=== PATIENT | male | born 1970 | race Caucasian/White ===

== ENCOUNTER 2018-10-16 16:14 | Inpatient (IN) | payer SELFPAY ==
[~2018-10-16] VITALS: Ht 172.7 cm; Wt 88.7 kg
[2018-10-16] MEDS ORDERED: ACETAMINOPHEN 160 MG/5 ML SUSPENSION UDCUP PO ONE (17:45)
[2018-10-16] MEDS ORDERED: SODIUM CHLORIDE 0.9% 1,000 ML IV ONE ×3 (17:45→19:45)
[2018-10-16 18:09] LABS: HEMATOCRIT 44.1 % (41-53); HEMOGLOBIN 14.8 g/dL (13.5-17.5); MEAN CORPUSCULAR HGB CONC 33.5 G/dL (31.0-37.0); MEAN CORPUSCULAR VOLUME 90 fL (80-100); PLATELET COUNT (AUTO) 183 K/uL (150-450); RED BLOOD CELL COUNT(AUTO) 4.92 MIL/uL (4.50-5.90); RED CELL DISTRIBUTION WIDTH 14.5 % (11.5-14.5)
[2018-10-16 18:18] LABS: CALCIUM, TOTAL 8.9 mg/dL (8.8-10.5); CREATININE 1.75 mg/dL (0.60-1.30); POTASSIUM 3.6 mmol/L (3.5-5.1)
[2018-10-16 18:25] LABS: LACTIC ACID 1.4 mmol/L (0.4-2.0)
[2018-10-16] MEDS ORDERED: ACETAMINOPHEN 500 MG TABLET PO ONE (18:30)
[2018-10-16 18:32] LABS: ALBUMIN 2.8 g/dL (3.4-5.0); BILIRUBIN,TOTAL 1.6 mg/dL (0.1-1.0); TOTAL PROTEIN, SERUM 7.3 g/dL (6.4-8.2)
[2018-10-16 19:17] LABS: BAND NEUTROPHILS % (MANUAL) 25 % (0-5); LYMPHOCYTES % (MANUAL) 4 % (22-44); MONOCYTES % (MANUAL) 8 % (2-9); SEGMENTED NEUTROPHILS % 63 % (40-70)
[2018-10-16 20:19] LABS: APPEARANCE,URINE CLOUDY (CLEAR); BILIRUBIN,URINE NEGATIVE (NEGATIVE); GLUCOSE, URINE (UA) NEGATIVE (NEGATIVE); KETONES,URINE NEGATIVE (NEGATIVE); LEUKOCYTE ESTERASE ,URINE MODERATE (NEGATIVE); NITRATE,URINE POSITIVE (NEGATIVE); OCCULT BLOOD,URINE LARGE (NEGATIVE); PH,URINE 5.5 (5.0-8.0); PROTEIN,URINE SEE CONFIRM (NEGATIVE)
[2018-10-16 20:32] LABS: SULFOSALICYLIC ACID,URINE 3+ (Negative)
[2018-10-16 20:33] LABS: BACTERIA,URINE Moderate /HPF (None Seen); WBC,URINE >100 /HPF (0-5)
[2018-10-16 20:34] LABS: SQUAMOUS EPITHELIAL CELL,UR Few /LPF (None Seen)
[2018-10-16 20:35] LABS: COARSE GRANULAR CASTS,URINE 0-2 /LPF (None Seen)
[2018-10-16] MEDS ORDERED: CefTRIAXone 1 GM/DEXTROSE 50 ML IV SCH (21:00)
[2018-10-16] MEDS: DOCUSATE SODIUM 100 MG CAPSULE PO SCH (21:00)
[2018-10-16] MEDS: OSELTAMIVIR PHOSPHATE 75 MG CAPSULE PO SCH (21:40)
[2018-10-16] MEDS: SODIUM CHLORIDE 0.9% 1,000 ML IV SCH (21:41)
[2018-10-16 21:42] VITALS: BP 121/74
[2018-10-17] MEDS: ACETAMINOPHEN 325 MG TABLET PO PRN ×3 (00:17→16:29)
[2018-10-17 00:25] VITALS: BP 139/66
[2018-10-17 05:36] VITALS: BP 102/70
[2018-10-17 05:54] LABS: BASOPHILS % (AUTO) 0.2 % (0.0-2.0); EOSINOPHILS % (AUTO) 0 % (1.0-6.0); HEMATOCRIT 40.3 % (41-53); HEMOGLOBIN 13.4 g/dL (13.5-17.5); LYMPHOCYTES # (AUTO) 0.4 K/uL (1.0-4.8); LYMPHOCYTES % (AUTO) 1.9 % (22.0-44.0); MEAN CORPUSCULAR HEMOGLOBIN 30.3 pg (26.0-34.0); MEAN CORPUSCULAR HGB CONC 33.2 G/dL (31.0-37.0); MEAN CORPUSCULAR VOLUME 91 fL (80-100); MONOCYTES # (AUTO) 1.5 K/uL (0.1-1.0); MONOCYTES % (AUTO) 7.8 % (2.0-9.0); NEUTROPHILS # (AUTO) 17.7 K/uL (1.8-7.7); PLATELET COUNT (AUTO) 159 K/uL (150-450); RED BLOOD CELL COUNT(AUTO) 4.42 MIL/uL (4.50-5.90); RED CELL DISTRIBUTION WIDTH 14.7 % (11.5-14.5)
[2018-10-17 06:07] LABS: NEUTROPHILS % (AUTO) 90.1 % (40.0-70.0)
[2018-10-17 06:13] LABS: CALCIUM, TOTAL 8.3 mg/dL (8.8-10.5); CREATININE 1.48 mg/dL (0.60-1.30); POTASSIUM 3.5 mmol/L (3.5-5.1)
[2018-10-17] MEDS: DOCUSATE SODIUM 100 MG CAPSULE PO SCH ×2 (08:04→21:51)
[2018-10-17 08:14] VITALS: BP 121/75
[2018-10-17] MEDS: OSELTAMIVIR PHOSPHATE 75 MG CAPSULE PO SCH ×2 (09:37→21:51)
[2018-10-17] MEDS: SODIUM CHLORIDE 0.9% 1,000 ML IV SCH ×2 (09:40→21:58)
[2018-10-17 11:12] VITALS: BP 114/75
[2018-10-17] MEDS ORDERED: AZITHROMYCIN 500 MG/NS 250 ML IV SCH (15:00)
[2018-10-17] MEDS ORDERED: CefTRIAXone SODIUM 2 GM in DEXTROSE 5%-WATER 50 ML IV SCH (16:00)
[2018-10-17 16:01] VITALS: BP 137/91
[2018-10-17 20:32] VITALS: BP 134/76
[2018-10-18 00:48] VITALS: BP 145/91
[2018-10-18 04:43] VITALS: BP 152/92
[2018-10-18 06:19] LABS: BASOPHILS % (AUTO) 0.3 % (0.0-2.0); EOSINOPHILS % (AUTO) 0.5 % (1.0-6.0); HEMATOCRIT 36.5 % (41-53); HEMOGLOBIN 12.5 g/dL (13.5-17.5); LYMPHOCYTES # (AUTO) 0.5 K/uL (1.0-4.8); LYMPHOCYTES % (AUTO) 3.2 % (22.0-44.0); MEAN CORPUSCULAR HEMOGLOBIN 30.2 pg (26.0-34.0); MEAN CORPUSCULAR HGB CONC 34.1 G/dL (31.0-37.0); MEAN CORPUSCULAR VOLUME 89 fL (80-100); MONOCYTES # (AUTO) 1.1 K/uL (0.1-1.0); MONOCYTES % (AUTO) 7.7 % (2.0-9.0); NEUTROPHILS # (AUTO) 12.8 K/uL (1.8-7.7); PLATELET COUNT (AUTO) 161 K/uL (150-450); RED BLOOD CELL COUNT(AUTO) 4.12 MIL/uL (4.50-5.90); RED CELL DISTRIBUTION WIDTH 14.9 % (11.5-14.5)
[2018-10-18 06:28] LABS: ANION GAP 7 mmol/L (8-16); CALCIUM, TOTAL 8.2 mg/dL (8.8-10.5); CARBON DIOXIDE 27 mmol/L (22-29); CHLORIDE 101 mmol/L (98-107); CREATININE 1.02 mg/dL (0.60-1.30); GLOMERULAR FILTR. RATE CALC > 60 mL/min (>60); GLUCOSE,RANDOM 90 mg/dL (70-110); POTASSIUM 3.2 mmol/L (3.5-5.1); SODIUM SERUM 135 mmol/L (136-145); UREA NITROGEN, BLOOD 15 mg/dL (7-18)
[2018-10-18 07:48] VITALS: BP 155/95
[2018-10-18 07:51] LABS: NEUTROPHILS % (AUTO) 88.3 % (40.0-70.0)
[2018-10-18] MEDS: OSELTAMIVIR PHOSPHATE 75 MG CAPSULE PO SCH (09:28)
[2018-10-18] MEDS: DOCUSATE SODIUM 100 MG CAPSULE PO SCH (09:28)
[2018-10-18] MEDS: SODIUM CHLORIDE 0.9% 1,000 ML IV SCH (09:35)
[2018-10-18 11:46] VITALS: BP 135/90
[2018-10-18] MEDS ORDERED: POTASSIUM CHLORIDE 20 MEQ ER TABLET PO ONE (13:30)
[2018-10-18] MEDS ORDERED: OSEL75 PO (14:11)
[2018-10-18] MEDS ORDERED: CIPR-278 PO (14:11)
== END 2018-10-18 14:58 | disposition home or self-care (01) | DRG 194 ==
LOC: EMS 16:15 → 6N 20:30
PROVIDERS: ADMIT Internal Medicine; ATTEND Internal Medicine
DX: J10.1 Influenza due to other identified influenza virus with other respiratory manifestations (principal); N39.0 Urinary tract infection, site not specified; N17.9 Acute kidney failure, unspecified; R65.10 Systemic inflammatory response syndrome (SIRS) of non-infectious origin without acute organ dysfunction; R00.0 Tachycardia, unspecified; F17.200 Nicotine dependence, unspecified, uncomplicated; J20.9 Acute bronchitis, unspecified; Z86.73 Personal history of transient ischemic attack (TIA), and cerebral infarction without residual deficits
CPT/HCPCS: 83605; 83735; 87040; 87086; 87205; 93005; 96360; 96361; G0378; J0456; J0696; J7030; J7060

== ENCOUNTER 2020-09-22 22:45 | Inpatient (IN) | payer MEDICAID ==
[~2020-09-22] VITALS: Ht 165.1 cm; Wt 99.3 kg
[~2020-09-22 22:45] MED LIST: CIPR-278 PO; OSEL75 PO
[2020-09-22 23:43] LABS: BASOPHILS % (AUTO) 0.6 % (0.0-2.0); EOSINOPHILS % (AUTO) 0 % (1.0-6.0); HEMATOCRIT 43.4 % (41-53); HEMOGLOBIN 14.5 g/dL (13.5-17.5); LYMPHOCYTES # (AUTO) 0.7 K/uL (1.0-4.8); LYMPHOCYTES % (AUTO) 4.5 % (22.0-44.0); MEAN CORPUSCULAR HEMOGLOBIN 29.8 pg (26.0-34.0); MEAN CORPUSCULAR HGB CONC 33.4 G/dL (31.0-37.0); MEAN CORPUSCULAR VOLUME 89 fL (80-100); MONOCYTES # (AUTO) 1.3 K/uL (0.1-1.0); MONOCYTES % (AUTO) 8.8 % (2.0-9.0); NEUTROPHILS # (AUTO) 13.1 K/uL (1.8-7.7); PLATELET COUNT (AUTO) 319 K/uL (150-450); RED BLOOD CELL COUNT(AUTO) 4.87 MIL/uL (4.50-5.90); RED CELL DISTRIBUTION WIDTH 15.2 % (11.5-14.5)
[2020-09-22 23:45] LABS: NEUTROPHILS % (AUTO) 86.1 % (40.0-70.0)
[2020-09-22 23:55] LABS: CALCIUM, TOTAL 8.6 mg/dL (8.8-10.5); CREATININE 1.78 mg/dL (0.60-1.30); POTASSIUM 3.7 mmol/L (3.5-5.1)
[2020-09-23] MEDS ORDERED: SODIUM CHLORIDE 0.9% 500 ML IV ONE (00:15)
[2020-09-23] MEDS ORDERED: SODIUM CHLORIDE 0.9% 1,000 ML IV ONE (00:15)
[2020-09-23] MEDS ORDERED: DEXAMETHASONE SOD PHOS 4 MG/ML VIAL IVP ONE (00:15)
[2020-09-23 00:16] LABS: D-DIMER 0.77 mg/L FEU (0.00-0.50); INR 1.1 (0.9-1.1); PROTHROMBIN TIME 11.4 SEC (9.4-11.6)
[2020-09-23 00:36] LABS: ALBUMIN 2.8 g/dL (3.4-5.0)
[2020-09-23 00:56] LABS: C-REACTIVE PROTEIN QUANT 37.05 mg/dL (0.00-0.30)
[2020-09-23] MEDS ORDERED: ACETAMINOPHEN 325 MG TABLET PO PRN (01:00)
[2020-09-23] MEDS ORDERED: ONDANSETRON HCL 4 MG/2 ML VIAL IVP PRN ×2 (01:00→01:30)
[2020-09-23] MEDS ORDERED: 0.9% SODIUM CHLORIDE 10 ML SYRINGE IVP PRN (01:00)
[2020-09-23 01:12] LABS: COVID AG,FIA SOURCE NASOPHARYNGEAL
[2020-09-23 01:20] LABS: LACTIC ACID 3.7 mmol/L (0.4-2.0)
[2020-09-23] MEDS ORDERED: HEPARIN SODIUM,PORCINE 5,000 UNITS/ML VIAL IVP PRN ×3 (01:30→03:50)
[2020-09-23] MEDS ORDERED: ASPIRIN 81 MG CHEWABLE TABLET PO ONE (01:30)
[2020-09-23 01:53] LABS: INFLUENZA TYPE A NEGATIVE FOR TYPE A (NEGATIVE); INFLUENZA TYPE B NEGATIVE FOR TYPE B (NEGATIVE)
[2020-09-23 02:22] LABS: ABG A-A DIFF O2 617.9 mmHg (10-20.0); ABG BASE EXCESS -1.1 mmol/L (-2.0-3.0); ABG CARBOXYHEMOGLOBIN 1.3 % (0.0-1.5); ABG HCO3 24.1 mmol/L (22.0-26.0); ABG METHEMOGLOBIN 0.3 % (0.0-1.5); ABG OXYGEN CONTENT 19.1 mL/dL (15.0-23.0); ABG OXYGEN SATURATION 92.4 % (95.0-98.0); ABG OXYHEMOGLOBIN 90.9 % (94.0-100.0); ABG PCO2 33 mmHg (35-45); ABG PH 7.457 (7.35-7.450); PO2, ARTERIAL BG 62.3 mmHg (84.0-92.0); SOURCE, BLOOD GAS ARTERIAL; TEMPERATURE, FAHRENHEIT, BG 98.4 FAHREN (96.0-98.6)
[2020-09-23 02:24] LABS: O2 DEVICE,BLOOD GAS NON REBREATHER (ROOM AIR); SITE, BLOOD GAS RT RADIAL
[2020-09-23] MEDS: ATORVASTATIN CALCIUM 20 MG TABLET PO SCH ×2 (02:36→08:17)
[2020-09-23] MEDS: SODIUM CHLORIDE 0.45% 1,000 ML IV SCH ×2 (02:37→20:55)
[2020-09-23] MEDS: CefTRIAXone 1 GM/DEXTROSE 50 ML IV SCH (02:37)
[2020-09-23] MEDS: AZITHROMYCIN 500 MG/NS 250 ML IV SCH (03:17)
[2020-09-23 04:12] LABS: APPEARANCE,URINE CLOUDY (CLEAR); BILIRUBIN,URINE NEGATIVE (NEGATIVE); GLUCOSE, URINE (UA) NEGATIVE (NEGATIVE); KETONES,URINE TRACE mg/dL (NEGATIVE); LEUKOCYTE ESTERASE ,URINE NEGATIVE (NEGATIVE); NITRATE,URINE NEGATIVE (NEGATIVE); OCCULT BLOOD,URINE NEGATIVE (NEGATIVE); PH,URINE 5.5 (5.0-8.0); PROTEIN,URINE SEE CONFIRM (NEGATIVE)
[2020-09-23 04:25] LABS: SULFOSALICYLIC ACID,URINE 2+ (Negative)
[2020-09-23 04:27] LABS: BACTERIA,URINE Few /HPF (None Seen); RBC,URINE None Seen /HPF (0-2); SQUAMOUS EPITHELIAL CELL,UR Rare /LPF (None Seen); WBC,URINE 0-2 /HPF (0-5)
[2020-09-23] MEDS: HEPARIN SODIUM 25000 UNITS/D5W 250 ML IV PRN (04:35)
[2020-09-23] MEDS: DOCUSATE SODIUM 100 MG CAPSULE PO SCH ×2 (08:18→20:56)
[2020-09-23 08:21] VITALS: BP 150/85
[2020-09-23 08:22] VITALS: BP 153/95
[2020-09-23 09:28] LABS: BASOPHILS % (AUTO) 0.3 % (0.0-2.0); EOSINOPHILS % (AUTO) 0 % (1.0-6.0); HEMATOCRIT 45.2 % (41-53); HEMOGLOBIN 14.9 g/dL (13.5-17.5); LYMPHOCYTES # (AUTO) 0.6 K/uL (1.0-4.8); LYMPHOCYTES % (AUTO) 3.7 % (22.0-44.0); MEAN CORPUSCULAR HEMOGLOBIN 30.1 pg (26.0-34.0); MEAN CORPUSCULAR VOLUME 91 fL (80-100); MONOCYTES # (AUTO) 0.6 K/uL (0.1-1.0); MONOCYTES % (AUTO) 4.1 % (2.0-9.0); NEUTROPHILS # (AUTO) 14.2 K/uL (1.8-7.7); PLATELET COUNT (AUTO) 351 K/uL (150-450); RED BLOOD CELL COUNT(AUTO) 4.96 MIL/uL (4.50-5.90); RED CELL DISTRIBUTION WIDTH 15.8 % (11.5-14.5)
[2020-09-23 09:29] LABS: NEUTROPHILS % (AUTO) 91.9 % (40.0-70.0)
[2020-09-23 09:38] LABS: D-DIMER 0.88 mg/L FEU (0.00-0.50)
[2020-09-23 09:59] LABS: ALANINE AMINOTRANSFERASE 58 U/L (12-78); ALBUMIN 2.5 g/dL (3.4-5.0); ALKALINE PHOSPHATASE 73 U/L (46-116); ANION GAP 9 mmol/L (8-16); ASPARTATE AMINOTRANSFERASE 62 U/L (15-37); BILIRUBIN,TOTAL 0.7 mg/dL (0.1-1.0); CALCIUM, TOTAL 8.9 mg/dL (8.8-10.5); CARBON DIOXIDE 27 mmol/L (22-29); CHLORIDE 100 mmol/L (98-107); CREATININE 0.99 mg/dL (0.60-1.30); GLOMERULAR FILTR. RATE CALC > 60 mL/min (>60); GLUCOSE,RANDOM 162 mg/dL (70-110); POTASSIUM 3.9 mmol/L (3.5-5.1); SODIUM SERUM 136 mmol/L (136-145); TOTAL PROTEIN, SERUM 7.7 g/dL (6.4-8.2); UREA NITROGEN, BLOOD 15 mg/dL (7-18)
[2020-09-23 10:09] LABS: C-REACTIVE PROTEIN QUANT 35.23 mg/dL (0.00-0.30)
[2020-09-23] MEDS: HEPARIN SODIUM,PORCINE 5,000 UNITS/ML VIAL IVP PRN ×2 (11:05→18:10)
[2020-09-23 11:12] LABS: ABG A-A DIFF O2 503.9 mmHg (10-20.0); ABG BASE EXCESS 1.3 mmol/L (-2.0-3.0); ABG CARBOXYHEMOGLOBIN 1.1 % (0.0-1.5); ABG HCO3 25.7 mmol/L (22.0-26.0); ABG METHEMOGLOBIN 0.3 % (0.0-1.5); ABG OXYGEN CONTENT 19.7 mL/dL (15.0-23.0); ABG OXYGEN SATURATION 97.6 % (95.0-98.0); ABG OXYHEMOGLOBIN 96.2 % (94.0-100.0); ABG PCO2 39 mmHg (35-45); ABG PH 7.431 (7.35-7.450); ABG TOTAL HEMOGLOBIN 14.5 G/dL (12.0-18.0); PO2, ARTERIAL BG 97.4 mmHg (84.0-92.0); SOURCE, BLOOD GAS ARTERIAL; TEMPERATURE, FAHRENHEIT, BG 98.6 FAHREN (96.0-98.6)
[2020-09-23 11:15] LABS: O2 DEVICE,BLOOD GAS CANNULA (ROOM AIR); SITE, BLOOD GAS RT RADIAL
[2020-09-23] MEDS ORDERED: REMDESIVIR 200 MG in SODIUM CHLORIDE 0.9% 250 ML IV ONE (13:00)
[2020-09-23 13:43] VITALS: BP 141/99
[2020-09-23 14:19] LABS: FERRITIN 2421 ng/mL (26-388)
[2020-09-23] MEDS ORDERED: INFLUENZA VIRUS VACCINE QVS 2020-21 (6MO+)/PF 60 MCG/0.5 ML SYRINGE IM ONE (16:00)
[2020-09-23 16:20] VITALS: BP 146/74
[2020-09-23] MEDS: DEXAMETHASONE SOD PHOS 4 MG/ML VIAL IVP SCH (16:41)
[2020-09-23 19:44] VITALS: BP 130/93
[2020-09-23] MEDS: ASCORBIC ACID 500 MG TABLET PO SCH (20:56)
[2020-09-23] MEDS: ZINC SULFATE 220 MG CAPSULE PO SCH (20:56)
[2020-09-23] MEDS: CHOLECALCIFEROL (VIT D3) 1,000 UNITS [25 MCG] TABLET PO SCH (20:56)
[2020-09-23] MEDS: FAMOTIDINE 20 MG TABLET PO SCH (20:56)
[2020-09-24 00:16] VITALS: BP 139/85
[2020-09-24] MEDS: AZITHROMYCIN 500 MG/NS 250 ML IV SCH (00:18)
[2020-09-24] MEDS: HEPARIN SODIUM 25000 UNITS/D5W 250 ML IV PRN ×2 (01:26→14:28)
[2020-09-24] MEDS: CefTRIAXone 1 GM/DEXTROSE 50 ML IV SCH (02:19)
[2020-09-24] MEDS: HEPARIN SODIUM,PORCINE 5,000 UNITS/ML VIAL IVP PRN (02:19)
[2020-09-24 04:35] VITALS: BP 139/91
[2020-09-24 06:17] LABS: BASOPHILS % (AUTO) 0.2 % (0.0-2.0); EOSINOPHILS % (AUTO) 0 % (1.0-6.0); HEMATOCRIT 40.3 % (41-53); HEMOGLOBIN 13.3 g/dL (13.5-17.5); LYMPHOCYTES # (AUTO) 0.7 K/uL (1.0-4.8); LYMPHOCYTES % (AUTO) 3.7 % (22.0-44.0); MEAN CORPUSCULAR HEMOGLOBIN 29.9 pg (26.0-34.0); MEAN CORPUSCULAR VOLUME 91 fL (80-100); MONOCYTES % (AUTO) 5.2 % (2.0-9.0); NEUTROPHILS # (AUTO) 17.4 K/uL (1.8-7.7); PLATELET COUNT (AUTO) 411 K/uL (150-450); RED BLOOD CELL COUNT(AUTO) 4.45 MIL/uL (4.50-5.90); RED CELL DISTRIBUTION WIDTH 15.6 % (11.5-14.5)
[2020-09-24 06:33] LABS: D-DIMER 0.61 mg/L FEU (0.00-0.50)
[2020-09-24 07:25] LABS: NEUTROPHILS % (AUTO) 90.9 % (40.0-70.0)
[2020-09-24] MEDS: CHOLECALCIFEROL (VIT D3) 1,000 UNITS [25 MCG] TABLET PO SCH (07:58)
[2020-09-24] MEDS: DEXAMETHASONE SOD PHOS 4 MG/ML VIAL IVP SCH (07:58)
[2020-09-24] MEDS: DOCUSATE SODIUM 100 MG CAPSULE PO SCH ×2 (07:58→20:33)
[2020-09-24] MEDS: ATORVASTATIN CALCIUM 20 MG TABLET PO SCH (07:58)
[2020-09-24] MEDS: FAMOTIDINE 20 MG TABLET PO SCH ×2 (07:58→20:33)
[2020-09-24] MEDS: ZINC SULFATE 220 MG CAPSULE PO SCH ×2 (07:58→20:33)
[2020-09-24] MEDS: ASCORBIC ACID 500 MG TABLET PO SCH ×2 (07:59→20:33)
[2020-09-24 09:12] VITALS: BP 141/87
[2020-09-24 10:38] LABS: ALANINE AMINOTRANSFERASE 48 U/L (12-78); ALBUMIN 2.4 g/dL (3.4-5.0); ALKALINE PHOSPHATASE 69 U/L (46-116); ANION GAP 15 mmol/L (8-16); ASPARTATE AMINOTRANSFERASE 52 U/L (15-37); BILIRUBIN,TOTAL 0.5 mg/dL (0.1-1.0); C-REACTIVE PROTEIN QUANT 21.09 mg/dL (0.00-0.30); CALCIUM, TOTAL 8.8 mg/dL (8.8-10.5); CARBON DIOXIDE 22 mmol/L (22-29); CHLORIDE 102 mmol/L (98-107); CREATININE 0.96 mg/dL (0.60-1.30); GLOMERULAR FILTR. RATE CALC > 60 mL/min (>60); GLUCOSE,RANDOM 146 mg/dL (70-110); POTASSIUM 3.8 mmol/L (3.5-5.1); SODIUM SERUM 139 mmol/L (136-145); TOTAL PROTEIN, SERUM 7.2 g/dL (6.4-8.2); UREA NITROGEN, BLOOD 16 mg/dL (7-18)
[2020-09-24 12:09] VITALS: BP 138/92
[2020-09-24 12:39] LABS: FERRITIN 2228 ng/mL (26-388)
[2020-09-24] MEDS: REMDESIVIR 100 MG in SODIUM CHLORIDE 0.9% 250 ML IV SCH (14:25)
[2020-09-24] MEDS: SODIUM CHLORIDE 0.45% 1,000 ML IV SCH (14:26)
[2020-09-24 16:05] VITALS: BP 146/70
[2020-09-24 18:24] LABS: LACTIC ACID 2.5 mmol/L (0.4-2.0)
[2020-09-24 19:41] VITALS: BP 139/88
[2020-09-25] VITALS (13 sets, daily range): BP systolic 119–169; BP diastolic 53–82
[2020-09-25] MEDS: AZITHROMYCIN 500 MG/NS 250 ML IV SCH (01:27)
[2020-09-25] MEDS: CefTRIAXone 1 GM/DEXTROSE 50 ML IV SCH (02:03)
[2020-09-25] MEDS: SODIUM CHLORIDE 0.45% 1,000 ML IV SCH ×2 (04:18→17:49)
[2020-09-25 04:33] LABS: ABG A-A DIFF O2 619.7 mmHg (10-20.0); ABG BASE EXCESS 0.9 mmol/L (-2.0-3.0); ABG CARBOXYHEMOGLOBIN 1.2 % (0.0-1.5); ABG HCO3 25.2 mmol/L (22.0-26.0); ABG METHEMOGLOBIN 0.3 % (0.0-1.5); ABG OXYGEN CONTENT 17.4 mL/dL (15.0-23.0); ABG OXYGEN SATURATION 87.5 % (95.0-98.0); ABG OXYHEMOGLOBIN 86.2 % (94.0-100.0); ABG PCO2 38 mmHg (35-45); ABG TOTAL HEMOGLOBIN 14.4 G/dL (12.0-18.0); PO2, ARTERIAL BG 55.3 mmHg (84.0-92.0); SOURCE, BLOOD GAS ARTERIAL; TEMPERATURE, FAHRENHEIT, BG 98.8 FAHREN (96.0-98.6)
[2020-09-25 04:34] LABS: O2 DEVICE,BLOOD GAS HI FL CANNULA (ROOM AIR); SITE, BLOOD GAS LFT RADIAL
[2020-09-25] MEDS ORDERED: MIDAZOLAM HCL 2 MG/2 ML VIAL ONE ×2 (05:08→05:51)
[2020-09-25] MEDS ORDERED: FentaNYL CITRATE PF 100 MCG/2 ML VIAL IVP ONE (05:15)
[2020-09-25] MEDS ORDERED: MIDAZOLAM HCL 2 MG/2 ML VIAL IVP ONE ×2 (05:15→06:00)
[2020-09-25] MEDS: FAMOTIDINE 20 MG TABLET PO SCH ×2 (08:48→21:55)
[2020-09-25] MEDS: ZINC SULFATE 220 MG CAPSULE PO SCH ×2 (08:48→21:55)
[2020-09-25] MEDS: CHOLECALCIFEROL (VIT D3) 1,000 UNITS [25 MCG] TABLET PO SCH (08:48)
[2020-09-25] MEDS: ASCORBIC ACID 500 MG TABLET PO SCH ×2 (08:48→21:55)
[2020-09-25] MEDS: ATORVASTATIN CALCIUM 20 MG TABLET PO SCH (08:48)
[2020-09-25] MEDS: DOCUSATE SODIUM 100 MG CAPSULE PO SCH ×2 (08:48→21:55)
[2020-09-25] MEDS: FentaNYL CIT 1000MCG/D5%-WATER 100 ML IV PRN ×2 (08:49→17:48)
[2020-09-25] MEDS: DEXAMETHASONE SOD PHOS 4 MG/ML VIAL IVP SCH (08:49)
[2020-09-25] MEDS: PROPOFOL 1000 MG/ISO-OSM 100 ML IV PRN ×4 (08:50→21:55)
[2020-09-25 08:58] LABS: BASOPHILS % (AUTO) 0.2 % (0.0-2.0); EOSINOPHILS % (AUTO) 0 % (1.0-6.0); HEMATOCRIT 36.3 % (41-53); HEMOGLOBIN 11.9 g/dL (13.5-17.5); LYMPHOCYTES # (AUTO) 0.7 K/uL (1.0-4.8); LYMPHOCYTES % (AUTO) 4.4 % (22.0-44.0); MEAN CORPUSCULAR HEMOGLOBIN 29.8 pg (26.0-34.0); MEAN CORPUSCULAR HGB CONC 32.9 G/dL (31.0-37.0); MEAN CORPUSCULAR VOLUME 91 fL (80-100); MONOCYTES % (AUTO) 6.4 % (2.0-9.0); NEUTROPHILS # (AUTO) 13.4 K/uL (1.8-7.7); PLATELET COUNT (AUTO) 376 K/uL (150-450); RED BLOOD CELL COUNT(AUTO) 4.01 MIL/uL (4.50-5.90); RED CELL DISTRIBUTION WIDTH 16.1 % (11.5-14.5)
[2020-09-25 09:13] LABS: D-DIMER 0.55 mg/L FEU (0.00-0.50)
[2020-09-25] MEDS ORDERED: VECURONIUM BROMIDE 10 MG/VIAL ONE (09:15)
[2020-09-25 09:16] LABS: ALANINE AMINOTRANSFERASE 40 U/L (12-78); ALBUMIN 2.2 g/dL (3.4-5.0); ALKALINE PHOSPHATASE 67 U/L (46-116); ANION GAP 9 mmol/L (8-16); ASPARTATE AMINOTRANSFERASE 36 U/L (15-37); BILIRUBIN,TOTAL 0.4 mg/dL (0.1-1.0); CALCIUM, TOTAL 8.2 mg/dL (8.8-10.5); CARBON DIOXIDE 27 mmol/L (22-29); CHLORIDE 104 mmol/L (98-107); CREATININE 0.91 mg/dL (0.60-1.30); GLOMERULAR FILTR. RATE CALC > 60 mL/min (>60); GLUCOSE,RANDOM 151 mg/dL (70-110); POTASSIUM 3.6 mmol/L (3.5-5.1); SODIUM SERUM 140 mmol/L (136-145); TOTAL PROTEIN, SERUM 6.3 g/dL (6.4-8.2); UREA NITROGEN, BLOOD 16 mg/dL (7-18)
[2020-09-25] MEDS: MIDAZOLAM HCL 100 MG in DEXTROSE 5%-WATER 180 ML IV PRN (09:20)
[2020-09-25] MEDS: HEPARIN SODIUM 25000 UNITS/D5W 250 ML IV PRN (09:28)
[2020-09-25] MEDS ORDERED: VECURONIUM BROMIDE 10 MG/VIAL IVP ONE ×2 (09:30→12:45)
[2020-09-25 10:07] LABS: FERRITIN 1646 ng/mL (26-388)
[2020-09-25 10:16] LABS: ABG CARBOXYHEMOGLOBIN 0.8 % (0.0-1.5); ABG METHEMOGLOBIN 0.3 % (0.0-1.5); ABG OXYGEN SATURATION 96.9 % (95.0-98.0); ABG OXYHEMOGLOBIN 95.8 % (94.0-100.0); ABG PCO2 50 mmHg (35-45); ABG PH 7.331 (7.35-7.450); ABG TOTAL HEMOGLOBIN 12.5 G/dL (12.0-18.0); O2 DEVICE,BLOOD GAS VENTILATOR (ROOM AIR); PEEP,BG 10 cm H2O; SITE, BLOOD GAS ARTERIAL LINE; SOURCE, BLOOD GAS ARTERIAL; SPONTANEOUS VT, BG 420 ml; TEMPERATURE, FAHRENHEIT, BG 97.1 FAHREN (96.0-98.6); VT, ABG 450 ml
[2020-09-25 12:21] LABS: ABG A-A DIFF O2 619.1 mmHg (10-20.0); ABG BASE EXCESS 0.9 mmol/L (-2.0-3.0); ABG CARBOXYHEMOGLOBIN 1.6 % (0.0-1.5); ABG HCO3 23.9 mmol/L (22.0-26.0); ABG METHEMOGLOBIN 0.3 % (0.0-1.5); ABG OXYGEN CONTENT 13.5 mL/dL (15.0-23.0); ABG OXYGEN SATURATION 72.5 % (95.0-98.0); ABG OXYHEMOGLOBIN 71.1 % (94.0-100.0); ABG PCO2 53 mmHg (35-45); ABG TOTAL HEMOGLOBIN 13.5 G/dL (12.0-18.0); O2 DEVICE,BLOOD GAS VENTILATOR (ROOM AIR); PO2, ARTERIAL BG 42.1 mmHg (84.0-92.0); SITE, BLOOD GAS ARTERIAL LINE; SOURCE, BLOOD GAS ARTERIAL; TEMPERATURE, FAHRENHEIT, BG 97.6 FAHREN (96.0-98.6)
[2020-09-25 12:23] LABS: PEEP,BG 10 cm H2O; SPONTANEOUS VT, BG 525 ml; VT, ABG 450 ml
[2020-09-25] MEDS ORDERED: CISATRACURIUM BESYLATE 2 MG/ML 10 ML VIAL IVP ONE (12:45)
[2020-09-25] MEDS: CISATRACURIUM BESYLATE 50 MG in DEXTROSE 5%-WATER 245 ML IV PRN ×3 (13:50→23:19)
[2020-09-25] MEDS: REMDESIVIR 100 MG in SODIUM CHLORIDE 0.9% 250 ML IV SCH (14:38)
[2020-09-25] MEDS ORDERED: SODIUM CHLORIDE 0.9% 500 ML IV ONE (17:45)
[2020-09-25] MEDS: ACETAMINOPHEN 325 MG TABLET PO PRN (18:02)
[2020-09-26] VITALS: BP 149/61
[2020-09-26] MEDS: FentaNYL CIT 1000MCG/D5%-WATER 100 ML IV PRN ×3 (01:23→23:44)
[2020-09-26] MEDS: AZITHROMYCIN 500 MG/NS 250 ML IV SCH (01:23)
[2020-09-26] MEDS: PROPOFOL 1000 MG/ISO-OSM 100 ML IV PRN ×4 (01:24→17:27)
[2020-09-26] MEDS: CefTRIAXone 1 GM/DEXTROSE 50 ML IV SCH (01:24)
[2020-09-26] MEDS: HEPARIN SODIUM 25000 UNITS/D5W 250 ML IV PRN ×2 (02:44→22:36)
[2020-09-26 04:00] VITALS: BP 119/53
[2020-09-26] MEDS: CISATRACURIUM BESYLATE 50 MG in DEXTROSE 5%-WATER 245 ML IV PRN ×4 (04:46→23:07)
[2020-09-26 06:20] LABS: BASOPHILS % (AUTO) 0.1 % (0.0-2.0); EOSINOPHILS % (AUTO) 2.3 % (1.0-6.0); HEMATOCRIT 36.3 % (41-53); HEMOGLOBIN 11.7 g/dL (13.5-17.5); LYMPHOCYTES # (AUTO) 0.4 K/uL (1.0-4.8); LYMPHOCYTES % (AUTO) 2.9 % (22.0-44.0); MEAN CORPUSCULAR HEMOGLOBIN 29.4 pg (26.0-34.0); MEAN CORPUSCULAR HGB CONC 32.2 G/dL (31.0-37.0); MEAN CORPUSCULAR VOLUME 91 fL (80-100); MONOCYTES # (AUTO) 0.2 K/uL (0.1-1.0); MONOCYTES % (AUTO) 1.6 % (2.0-9.0); NEUTROPHILS # (AUTO) 13.9 K/uL (1.8-7.7); PLATELET COUNT (AUTO) 356 K/uL (150-450); RED BLOOD CELL COUNT(AUTO) 3.98 MIL/uL (4.50-5.90); RED CELL DISTRIBUTION WIDTH 16.4 % (11.5-14.5)
[2020-09-26 06:21] LABS: NEUTROPHILS % (AUTO) 93.1 % (40.0-70.0)
[2020-09-26 06:32] LABS: D-DIMER 2.25 mg/L FEU (0.00-0.50)
[2020-09-26 07:21] LABS: ALANINE AMINOTRANSFERASE 26 U/L (12-78); ALBUMIN 1.8 g/dL (3.4-5.0); ALKALINE PHOSPHATASE 63 U/L (46-116); ANION GAP 3 mmol/L (8-16); ASPARTATE AMINOTRANSFERASE 24 U/L (15-37); BILIRUBIN,TOTAL 0.5 mg/dL (0.1-1.0); C-REACTIVE PROTEIN QUANT 17.92 mg/dL (0.00-0.30); CALCIUM, TOTAL 7.8 mg/dL (8.8-10.5); CARBON DIOXIDE 31 mmol/L (22-29); CHLORIDE 101 mmol/L (98-107); CREATININE 0.76 mg/dL (0.60-1.30); FERRITIN 1310 ng/mL (26-388); GLOMERULAR FILTR. RATE CALC > 60 mL/min (>60); GLUCOSE,RANDOM 96 mg/dL (70-110); POTASSIUM 3.9 mmol/L (3.5-5.1); SODIUM SERUM 135 mmol/L (136-145); TOTAL PROTEIN, SERUM 6.1 g/dL (6.4-8.2); UREA NITROGEN, BLOOD 7 mg/dL (7-18)
[2020-09-26 08:00] VITALS: BP 136/55
[2020-09-26] MEDS: FAMOTIDINE 20 MG TABLET PO SCH ×2 (09:23→20:52)
[2020-09-26] MEDS: DOCUSATE SODIUM 100 MG CAPSULE PO SCH ×2 (09:24→20:52)
[2020-09-26] MEDS: ZINC SULFATE 220 MG CAPSULE PO SCH ×2 (09:24→20:52)
[2020-09-26] MEDS: ATORVASTATIN CALCIUM 20 MG TABLET PO SCH (09:24)
[2020-09-26] MEDS: CHOLECALCIFEROL (VIT D3) 1,000 UNITS [25 MCG] TABLET PO SCH (09:24)
[2020-09-26] MEDS: ASCORBIC ACID 500 MG TABLET PO SCH ×2 (09:24→20:52)
[2020-09-26] MEDS: ACETAMINOPHEN 325 MG TABLET PO PRN (09:25)
[2020-09-26] MEDS: DEXAMETHASONE SOD PHOS 4 MG/ML VIAL IVP SCH (09:25)
[2020-09-26] MEDS: SODIUM CHLORIDE 0.45% 1,000 ML IV SCH ×2 (09:26→23:08)
[2020-09-26 12:00] VITALS: BP 97/52
[2020-09-26] MEDS: REMDESIVIR 100 MG in SODIUM CHLORIDE 0.9% 250 ML IV SCH (15:00)
[2020-09-26 16:00] VITALS: BP 107/55
[2020-09-26 19:40] LABS: ABG A-A DIFF O2 613.2 mmHg (10-20.0); ABG BASE EXCESS 4.2 mmol/L (-2.0-3.0); ABG CARBOXYHEMOGLOBIN 1.1 % (0.0-1.5); ABG HCO3 27.3 mmol/L (22.0-26.0); ABG METHEMOGLOBIN 0.3 % (0.0-1.5); ABG OXYGEN CONTENT 14.2 mL/dL (15.0-23.0); ABG OXYHEMOGLOBIN 85.8 % (94.0-100.0); ABG PCO2 50 mmHg (35-45); ABG PH 7.387 (7.35-7.450); ABG TOTAL HEMOGLOBIN 11.8 G/dL (12.0-18.0); PO2, ARTERIAL BG 49.6 mmHg (84.0-92.0); SOURCE, BLOOD GAS ARTERIAL
[2020-09-26 19:41] LABS: O2 DEVICE,BLOOD GAS VENTILATOR (ROOM AIR); PEEP,BG 12 cm H2O; SITE, BLOOD GAS ARTERIAL LINE; VT, ABG 450 ml
[2020-09-26 20:00] VITALS: BP 114/60
[2020-09-27] VITALS: BP 115/54
[2020-09-27] MEDS ORDERED: PROPOFOL 1% 20 ML VIAL IVP ONE (01:40)
[2020-09-27] MEDS ORDERED: LIDOCAINE/PF 2% 5 ML VIAL IM ONE (01:40)
[2020-09-27] MEDS ORDERED: ROCURONIUM BROMIDE 10 MG/ML 5 ML VIAL IVP ONE (01:40)
[2020-09-27] MEDS: CefTRIAXone 1 GM/DEXTROSE 50 ML IV SCH (02:55)
[2020-09-27 04:00] VITALS: BP 94/48
[2020-09-27] MEDS: CISATRACURIUM BESYLATE 50 MG in DEXTROSE 5%-WATER 245 ML IV PRN ×4 (04:18→22:23)
[2020-09-27 06:25] LABS: BASOPHILS % (AUTO) 0.1 % (0.0-2.0); EOSINOPHILS % (AUTO) 0.2 % (1.0-6.0); HEMATOCRIT 31.9 % (41-53); HEMOGLOBIN 10.6 g/dL (13.5-17.5); LYMPHOCYTES # (AUTO) 0.4 K/uL (1.0-4.8); MEAN CORPUSCULAR HEMOGLOBIN 30.4 pg (26.0-34.0); MEAN CORPUSCULAR HGB CONC 33.2 G/dL (31.0-37.0); MEAN CORPUSCULAR VOLUME 91 fL (80-100); MONOCYTES # (AUTO) 0.6 K/uL (0.1-1.0); MONOCYTES % (AUTO) 3.4 % (2.0-9.0); NEUTROPHILS # (AUTO) 16.5 K/uL (1.8-7.7); PLATELET COUNT (AUTO) 343 K/uL (150-450); RED BLOOD CELL COUNT(AUTO) 3.49 MIL/uL (4.50-5.90); RED CELL DISTRIBUTION WIDTH 16.4 % (11.5-14.5)
[2020-09-27 06:26] LABS: NEUTROPHILS % (AUTO) 94.3 % (40.0-70.0)
[2020-09-27 06:36] LABS: D-DIMER 2.58 mg/L FEU (0.00-0.50)
[2020-09-27 07:12] LABS: ALANINE AMINOTRANSFERASE 32 U/L (12-78); ALBUMIN 1.5 g/dL (3.4-5.0); ALKALINE PHOSPHATASE 70 U/L (46-116); ANION GAP 0 mmol/L (8-16); ASPARTATE AMINOTRANSFERASE 52 U/L (15-37); BILIRUBIN,TOTAL 0.6 mg/dL (0.1-1.0); CALCIUM, TOTAL 8.2 mg/dL (8.8-10.5); CARBON DIOXIDE 34 mmol/L (22-29); CHLORIDE 100 mmol/L (98-107); CREATININE 0.82 mg/dL (0.60-1.30); FERRITIN 885 ng/mL (26-388); GLOMERULAR FILTR. RATE CALC > 60 mL/min (>60); GLUCOSE,RANDOM 136 mg/dL (70-110); POTASSIUM 4.3 mmol/L (3.5-5.1); SODIUM SERUM 134 mmol/L (136-145); TOTAL PROTEIN, SERUM 5.9 g/dL (6.4-8.2); UREA NITROGEN, BLOOD 12 mg/dL (7-18)
[2020-09-27 07:24] LABS: C-REACTIVE PROTEIN QUANT 27.31 mg/dL (0.00-0.30)
[2020-09-27] MEDS: PROPOFOL 1000 MG/ISO-OSM 100 ML IV PRN ×2 (07:38→15:50)
[2020-09-27] MEDS: FentaNYL CIT 1000MCG/D5%-WATER 100 ML IV PRN ×3 (07:38→22:23)
[2020-09-27] MEDS: ATORVASTATIN CALCIUM 20 MG TABLET PO SCH (09:43)
[2020-09-27] MEDS: FAMOTIDINE 20 MG TABLET PO SCH ×2 (09:43→20:57)
[2020-09-27] MEDS: ZINC SULFATE 220 MG CAPSULE PO SCH ×2 (09:44→20:57)
[2020-09-27] MEDS: CHOLECALCIFEROL (VIT D3) 1,000 UNITS [25 MCG] TABLET PO SCH (09:44)
[2020-09-27] MEDS: ASCORBIC ACID 500 MG TABLET PO SCH ×2 (09:44→20:56)
[2020-09-27] MEDS: DEXAMETHASONE SOD PHOS 4 MG/ML VIAL IVP SCH (09:44)
[2020-09-27] MEDS: DOCUSATE SODIUM 100 MG CAPSULE PO SCH ×2 (09:44→20:57)
[2020-09-27 11:16] VITALS: BP 100/50
[2020-09-27 12:00] VITALS: BP 115/51
[2020-09-27 13:06] LABS: ORGANISM ID Not indicated.; S PNEUMO SOURCE Urine; STREP PNEUMONIAE AG URINE Negative (Negative); STREP.PNEUMO BODY FLUID CULT. Not indicated.
[2020-09-27] MEDS ORDERED: SODIUM CHLORIDE 0.9% 250 ML IV ONE (13:26)
[2020-09-27] MEDS: REMDESIVIR 100 MG in SODIUM CHLORIDE 0.9% 250 ML IV SCH (13:31)
[2020-09-27] MEDS: HEPARIN SODIUM 25000 UNITS/D5W 250 ML IV PRN (15:49)
[2020-09-27 16:00] VITALS: BP 130/58
[2020-09-27 17:13] LABS: APPEARANCE,URINE CLEAR (CLEAR); BILIRUBIN,URINE NEGATIVE (NEGATIVE); GLUCOSE, URINE (UA) NEGATIVE (NEGATIVE); KETONES,URINE NEGATIVE (NEGATIVE); LEUKOCYTE ESTERASE ,URINE NEGATIVE (NEGATIVE); NITRATE,URINE NEGATIVE (NEGATIVE); OCCULT BLOOD,URINE NEGATIVE (NEGATIVE); PROTEIN,URINE TRACE (NEGATIVE); UROBILINOGEN,URINE 0.2 mg/dL (<=1.0)
[2020-09-27 17:31] LABS: RBC,URINE None Seen /HPF (0-2); WBC,URINE None Seen /HPF (0-5)
[2020-09-27 17:32] LABS: BACTERIA,URINE None Seen /HPF (None Seen); SQUAMOUS EPITHELIAL CELL,UR Rare /LPF (None Seen)
[2020-09-27 20:00] VITALS: BP 108/49
[2020-09-28] VITALS: BP 105/49
[2020-09-28] MEDS: CefTRIAXone 1 GM/DEXTROSE 50 ML IV SCH (02:11)
[2020-09-28 04:00] VITALS: BP 138/63
[2020-09-28] MEDS: FentaNYL CIT 1000MCG/D5%-WATER 100 ML IV PRN ×3 (04:48→21:53)
[2020-09-28] MEDS: CISATRACURIUM BESYLATE 50 MG in DEXTROSE 5%-WATER 245 ML IV PRN ×3 (04:49→17:48)
[2020-09-28 06:31] LABS: ALANINE AMINOTRANSFERASE 35 U/L (12-78); ALBUMIN 1.5 g/dL (3.4-5.0); ALKALINE PHOSPHATASE 66 U/L (46-116); ANION GAP 1 mmol/L (8-16); ASPARTATE AMINOTRANSFERASE 41 U/L (15-37); BILIRUBIN,TOTAL 0.4 mg/dL (0.1-1.0); C-REACTIVE PROTEIN QUANT 15.41 mg/dL (0.00-0.30); CALCIUM, TOTAL 8.3 mg/dL (8.8-10.5); CARBON DIOXIDE 37 mmol/L (22-29); CHLORIDE 98 mmol/L (98-107); CREATININE 0.75 mg/dL (0.60-1.30); GLOMERULAR FILTR. RATE CALC > 60 mL/min (>60); GLUCOSE,RANDOM 179 mg/dL (70-110); POTASSIUM 4.3 mmol/L (3.5-5.1); SODIUM SERUM 136 mmol/L (136-145); TOTAL PROTEIN, SERUM 6.2 g/dL (6.4-8.2); UREA NITROGEN, BLOOD 17 mg/dL (7-18)
[2020-09-28 08:00] VITALS: BP 120/54
[2020-09-28] MEDS: DOCUSATE SODIUM 100 MG CAPSULE PO SCH ×2 (08:42→20:38)
[2020-09-28] MEDS: FAMOTIDINE 20 MG TABLET PO SCH ×2 (08:42→20:38)
[2020-09-28] MEDS: DEXAMETHASONE SOD PHOS 4 MG/ML VIAL IVP SCH (08:43)
[2020-09-28] MEDS: ATORVASTATIN CALCIUM 20 MG TABLET PO SCH (08:43)
[2020-09-28] MEDS: ASCORBIC ACID 500 MG TABLET PO SCH ×2 (08:43→21:05)
[2020-09-28] MEDS: CHOLECALCIFEROL (VIT D3) 1,000 UNITS [25 MCG] TABLET PO SCH (08:43)
[2020-09-28] MEDS: ZINC SULFATE 220 MG CAPSULE PO SCH ×2 (08:43→20:38)
[2020-09-28] MEDS: HEPARIN SODIUM 25000 UNITS/D5W 250 ML IV PRN (11:47)
[2020-09-28 12:00] VITALS: BP 136/60
[2020-09-28] MEDS: PROPOFOL 1000 MG/ISO-OSM 100 ML IV PRN ×2 (12:54→17:17)
[2020-09-28 15:07] LABS: ABG A-A DIFF O2 465.1 mmHg (10-20.0); ABG BASE EXCESS 12.9 mmol/L (-2.0-3.0); ABG CARBOXYHEMOGLOBIN 0.6 % (0.0-1.5); ABG HCO3 34.3 mmol/L (22.0-26.0); ABG METHEMOGLOBIN 0.3 % (0.0-1.5); ABG OXYGEN CONTENT 15.8 mL/dL (15.0-23.0); ABG OXYGEN SATURATION 96.4 % (95.0-98.0); ABG OXYHEMOGLOBIN 95.5 % (94.0-100.0); ABG PCO2 64 mmHg (35-45); ABG TOTAL HEMOGLOBIN 11.7 G/dL (12.0-18.0); SOURCE, BLOOD GAS ARTERIAL; TEMPERATURE, FAHRENHEIT, BG 97.5 FAHREN (96.0-98.6)
[2020-09-28 15:08] LABS: O2 DEVICE,BLOOD GAS VENTILATOR (ROOM AIR); PEEP,BG 14 cm H2O; SITE, BLOOD GAS ARTERIAL LINE; SPONTANEOUS VT, BG 414 ml; VT, ABG 450 ml
[2020-09-28 16:00] VITALS: BP 125/55
[2020-09-28] MEDS: AMINO ACIDS/PROTEIN HYDROLYS 30 ML TUBE PO SCH (16:37)
[2020-09-28 20:00] VITALS: BP 127/54
[2020-09-28] MEDS ORDERED: SODIUM CHLORIDE 0.9% 250 ML IV ONE (22:50)
[2020-09-29] VITALS: BP 116/52
[2020-09-29] MEDS: PROPOFOL 1000 MG/ISO-OSM 100 ML IV PRN ×6 (00:01→17:49)
[2020-09-29] MEDS: CefTRIAXone 1 GM/DEXTROSE 50 ML IV SCH (02:06)
[2020-09-29 04:00] VITALS: BP 105/47
[2020-09-29] MEDS: CISATRACURIUM BESYLATE 50 MG in DEXTROSE 5%-WATER 245 ML IV PRN ×6 (06:16→22:24)
[2020-09-29] MEDS: FentaNYL CIT 1000MCG/D5%-WATER 100 ML IV PRN ×3 (06:17→20:15)
[2020-09-29 06:51] LABS: ANION GAP 1 mmol/L (8-16); CALCIUM, TOTAL 8.5 mg/dL (8.8-10.5); CARBON DIOXIDE 37 mmol/L (22-29); CHLORIDE 101 mmol/L (98-107); CREATININE 0.67 mg/dL (0.60-1.30); GLOMERULAR FILTR. RATE CALC > 60 mL/min (>60); GLUCOSE,RANDOM 191 mg/dL (70-110); POTASSIUM 4.2 mmol/L (3.5-5.1); SODIUM SERUM 139 mmol/L (136-145); UREA NITROGEN, BLOOD 18 mg/dL (7-18)
[2020-09-29] MEDS: HEPARIN SODIUM 25000 UNITS/D5W 250 ML IV PRN (07:59)
[2020-09-29] MEDS: ATORVASTATIN CALCIUM 20 MG TABLET PO SCH (07:59)
[2020-09-29] MEDS: DEXAMETHASONE SOD PHOS 4 MG/ML VIAL IVP SCH (07:59)
[2020-09-29] MEDS: ZINC SULFATE 220 MG CAPSULE PO SCH ×2 (07:59→20:15)
[2020-09-29] MEDS: DOCUSATE SODIUM 100 MG CAPSULE PO SCH ×2 (07:59→20:15)
[2020-09-29] MEDS: FAMOTIDINE 20 MG TABLET PO SCH ×2 (07:59→20:17)
[2020-09-29] MEDS: CHOLECALCIFEROL (VIT D3) 1,000 UNITS [25 MCG] TABLET PO SCH (07:59)
[2020-09-29] MEDS: ASCORBIC ACID 500 MG TABLET PO SCH ×2 (07:59→20:15)
[2020-09-29 08:00] VITALS: BP 109/48
[2020-09-29 12:00] VITALS: BP 164/69
[2020-09-29 13:18] LABS: ABG A-A DIFF O2 393.5 mmHg (10-20.0); ABG BASE EXCESS 16.9 mmol/L (-2.0-3.0); ABG CARBOXYHEMOGLOBIN 0.7 % (0.0-1.5); ABG HCO3 37.5 mmol/L (22.0-26.0); ABG METHEMOGLOBIN 0.3 % (0.0-1.5); ABG OXYGEN CONTENT 16.8 mL/dL (15.0-23.0); ABG OXYGEN SATURATION 94.2 % (95.0-98.0); ABG OXYHEMOGLOBIN 93.3 % (94.0-100.0); ABG PH 7.394 (7.35-7.450); ABG TOTAL HEMOGLOBIN 12.8 G/dL (12.0-18.0); PO2, ARTERIAL BG 67.7 mmHg (84.0-92.0); SOURCE, BLOOD GAS ARTERIAL; TEMPERATURE, FAHRENHEIT, BG 98.1 FAHREN (96.0-98.6)
[2020-09-29 13:20] LABS: ABG PCO2 70 mmHg (35-45); O2 DEVICE,BLOOD GAS VENTILATOR (ROOM AIR); PEEP,BG 12 cm H2O; SITE, BLOOD GAS ARTERIAL LINE; VT, ABG 450 ml
[2020-09-29] MEDS: AMINO ACIDS/PROTEIN HYDROLYS 30 ML TUBE PO SCH ×2 (13:32→16:32)
[2020-09-29 16:00] VITALS: BP 114/51
[2020-09-29 20:00] VITALS: BP 116/54
[2020-09-30] VITALS: BP 109/45
[2020-09-30] MEDS: PROPOFOL 1000 MG/ISO-OSM 100 ML IV PRN ×6 (01:23→21:32)
[2020-09-30] MEDS: CefTRIAXone 1 GM/DEXTROSE 50 ML IV SCH (01:39)
[2020-09-30] MEDS: FentaNYL CIT 1000MCG/D5%-WATER 100 ML IV PRN ×5 (02:16→21:32)
[2020-09-30] MEDS: CISATRACURIUM BESYLATE 50 MG in DEXTROSE 5%-WATER 245 ML IV PRN ×5 (02:26→21:34)
[2020-09-30 04:00] VITALS: BP 149/62
[2020-09-30] MEDS ORDERED: SODIUM CHLORIDE 0.9% 500 ML IV ONE (04:09)
[2020-09-30] MEDS ORDERED: SODIUM CHLORIDE 0.9% 250 ML IV ONE (04:09)
[2020-09-30] MEDS: HEPARIN SODIUM 25000 UNITS/D5W 250 ML IV PRN (06:27)
[2020-09-30 06:49] LABS: EOSINOPHILS % (AUTO) 0.4 % (1.0-6.0); HEMATOCRIT 34.3 % (41-53); HEMOGLOBIN 11.2 g/dL (13.5-17.5); LYMPHOCYTES # (AUTO) 0.5 K/uL (1.0-4.8); MEAN CORPUSCULAR HEMOGLOBIN 29.7 pg (26.0-34.0); MEAN CORPUSCULAR HGB CONC 32.5 G/dL (31.0-37.0); MEAN CORPUSCULAR VOLUME 91 fL (80-100); MONOCYTES # (AUTO) 1.4 K/uL (0.1-1.0); MONOCYTES % (AUTO) 12.5 % (2.0-9.0); NEUTROPHILS # (AUTO) 8.9 K/uL (1.8-7.7); NEUTROPHILS % (AUTO) 81.1 % (40.0-70.0); PLATELET COUNT (AUTO) 413 K/uL (150-450); RED BLOOD CELL COUNT(AUTO) 3.76 MIL/uL (4.50-5.90)
[2020-09-30] MEDS: CHOLECALCIFEROL (VIT D3) 1,000 UNITS [25 MCG] TABLET PO SCH (07:42)
[2020-09-30] MEDS: ATORVASTATIN CALCIUM 20 MG TABLET PO SCH (07:42)
[2020-09-30] MEDS: DOCUSATE SODIUM 100 MG CAPSULE PO SCH ×2 (07:42→20:10)
[2020-09-30] MEDS: ZINC SULFATE 220 MG CAPSULE PO SCH ×2 (07:42→20:10)
[2020-09-30] MEDS: FAMOTIDINE 20 MG TABLET PO SCH ×2 (07:42→20:12)
[2020-09-30] MEDS: ASCORBIC ACID 500 MG TABLET PO SCH ×2 (07:42→20:10)
[2020-09-30] MEDS: DEXAMETHASONE SOD PHOS 4 MG/ML VIAL IVP SCH (07:43)
[2020-09-30 08:00] VITALS: BP 129/57
[2020-09-30] MEDS: AMINO ACIDS/PROTEIN HYDROLYS 30 ML TUBE PO SCH ×2 (11:29→17:09)
[2020-09-30 12:00] VITALS: BP 112/50
[2020-09-30 16:00] VITALS: BP 125/53
[2020-09-30 20:15] VITALS: BP 117/51
[2020-10-01 00:14] VITALS: BP 96/46
[2020-10-01] MEDS: CISATRACURIUM BESYLATE 50 MG in DEXTROSE 5%-WATER 245 ML IV PRN ×6 (00:50→23:05)
[2020-10-01] MEDS: PROPOFOL 1000 MG/ISO-OSM 100 ML IV PRN ×7 (00:58→21:03)
[2020-10-01] MEDS: FentaNYL CIT 1000MCG/D5%-WATER 100 ML IV PRN ×5 (02:21→23:05)
[2020-10-01 04:22] VITALS: BP 98/48
[2020-10-01] MEDS: CefTRIAXone 1 GM/DEXTROSE 50 ML IV SCH (04:43)
[2020-10-01] MEDS: HEPARIN SODIUM 25000 UNITS/D5W 250 ML IV PRN (04:44)
[2020-10-01 06:50] LABS: D-DIMER 1.47 mg/L FEU (0.00-0.50)
[2020-10-01 07:11] LABS: ALANINE AMINOTRANSFERASE 33 U/L (12-78); ALBUMIN 1.7 g/dL (3.4-5.0); ALKALINE PHOSPHATASE 69 U/L (46-116); ANION GAP 0 mmol/L (8-16); ASPARTATE AMINOTRANSFERASE 32 U/L (15-37); BILIRUBIN,TOTAL 0.5 mg/dL (0.1-1.0); C-REACTIVE PROTEIN QUANT 5.92 mg/dL (0.00-0.30); CALCIUM, TOTAL 8.6 mg/dL (8.8-10.5); CARBON DIOXIDE 40 mmol/L (22-29); CHLORIDE 100 mmol/L (98-107); CREATININE 0.71 mg/dL (0.60-1.30); GLOMERULAR FILTR. RATE CALC > 60 mL/min (>60); GLUCOSE,RANDOM 101 mg/dL (70-110); POTASSIUM 3.8 mmol/L (3.5-5.1); SODIUM SERUM 140 mmol/L (136-145); TOTAL PROTEIN, SERUM 6.8 g/dL (6.4-8.2); UREA NITROGEN, BLOOD 18 mg/dL (7-18)
[2020-10-01] MEDS: FAMOTIDINE 20 MG TABLET PO SCH ×2 (07:40→21:02)
[2020-10-01] MEDS: DEXAMETHASONE SOD PHOS 4 MG/ML VIAL IVP SCH (07:41)
[2020-10-01] MEDS: ASCORBIC ACID 500 MG TABLET PO SCH ×2 (07:41→21:02)
[2020-10-01] MEDS: CHOLECALCIFEROL (VIT D3) 1,000 UNITS [25 MCG] TABLET PO SCH (07:41)
[2020-10-01] MEDS: ZINC SULFATE 220 MG CAPSULE PO SCH ×2 (07:41→21:03)
[2020-10-01] MEDS: ATORVASTATIN CALCIUM 20 MG TABLET PO SCH (07:41)
[2020-10-01] MEDS: DOCUSATE SODIUM 100 MG CAPSULE PO SCH ×2 (07:41→21:02)
[2020-10-01 08:00] VITALS: BP 134/56
[2020-10-01 12:00] VITALS: BP 121/54
[2020-10-01] MEDS: AMINO ACIDS/PROTEIN HYDROLYS 30 ML TUBE PO SCH ×2 (12:16→15:59)
[2020-10-01] MEDS: METOCLOPRAMIDE HCL 5 MG/ML 2 ML VIAL IVP SCH ×2 (15:59→21:02)
[2020-10-01 16:00] VITALS: BP 107/51
[2020-10-01 20:00] VITALS: BP 109/50
[2020-10-01] MEDS: LACTULOSE 20 GM/30 ML SOLUTION UDCUP PO SCH (21:02)
[2020-10-02] VITALS: BP 130/53
[2020-10-02] MEDS: PROPOFOL 1000 MG/ISO-OSM 100 ML IV PRN ×6 (00:15→21:49)
[2020-10-02] MEDS: CISATRACURIUM BESYLATE 50 MG in DEXTROSE 5%-WATER 245 ML IV PRN ×7 (03:09→23:48)
[2020-10-02] MEDS: CefTRIAXone 1 GM/DEXTROSE 50 ML IV SCH (03:19)
[2020-10-02 04:00] VITALS: BP 130/54
[2020-10-02] MEDS: HEPARIN SODIUM 25000 UNITS/D5W 250 ML IV PRN (05:13)
[2020-10-02] MEDS: FentaNYL CIT 1000MCG/D5%-WATER 100 ML IV PRN ×3 (07:13→23:50)
[2020-10-02 08:00] VITALS: BP 114/49
[2020-10-02] MEDS: DOCUSATE SODIUM 100 MG CAPSULE PO SCH ×2 (10:14→20:04)
[2020-10-02] MEDS: FAMOTIDINE 20 MG TABLET PO SCH ×2 (10:14→20:04)
[2020-10-02] MEDS: CHOLECALCIFEROL (VIT D3) 1,000 UNITS [25 MCG] TABLET PO SCH (10:14)
[2020-10-02] MEDS: ZINC SULFATE 220 MG CAPSULE PO SCH ×2 (10:14→20:05)
[2020-10-02] MEDS: DEXAMETHASONE SOD PHOS 4 MG/ML VIAL IVP SCH (10:15)
[2020-10-02] MEDS: LACTULOSE 20 GM/30 ML SOLUTION UDCUP PO SCH ×2 (10:15→20:06)
[2020-10-02] MEDS: ATORVASTATIN CALCIUM 20 MG TABLET PO SCH (10:16)
[2020-10-02] MEDS: ASCORBIC ACID 500 MG TABLET PO SCH ×2 (10:16→20:05)
[2020-10-02] MEDS: METOCLOPRAMIDE HCL 5 MG/ML 2 ML VIAL IVP SCH ×3 (10:16→20:06)
[2020-10-02] MEDS: LORazepam 2 MG/ML VIAL IVP PRN ×2 (10:17→19:30)
[2020-10-02] MEDS: AMINO ACIDS/PROTEIN HYDROLYS 30 ML TUBE PO SCH ×2 (12:11→17:16)
[2020-10-02] MEDS: NOREPINEPHRINE 4 MG/D5%-WATER 250 ML IV PRN (21:49)
[2020-10-03] MEDS ORDERED: SODIUM CHLORIDE 0.9% 250 ML IV ONE (04:33)
[2020-10-03] MEDS: CISATRACURIUM BESYLATE 50 MG in DEXTROSE 5%-WATER 245 ML IV PRN ×4 (04:40→23:23)
[2020-10-03] MEDS: HEPARIN SODIUM 25000 UNITS/D5W 250 ML IV PRN (04:41)
[2020-10-03 07:07] LABS: BASOPHILS % (AUTO) 0.5 % (0.0-2.0); HEMATOCRIT 36.4 % (41-53); LYMPHOCYTES # (AUTO) 1.4 K/uL (1.0-4.8); LYMPHOCYTES % (AUTO) 9.3 % (22.0-44.0); MEAN CORPUSCULAR HEMOGLOBIN 29.5 pg (26.0-34.0); MEAN CORPUSCULAR HGB CONC 32.8 G/dL (31.0-37.0); MEAN CORPUSCULAR VOLUME 90 fL (80-100); MONOCYTES # (AUTO) 1.3 K/uL (0.1-1.0); MONOCYTES % (AUTO) 8.5 % (2.0-9.0); NEUTROPHILS # (AUTO) 12.1 K/uL (1.8-7.7); NEUTROPHILS % (AUTO) 80.7 % (40.0-70.0); PLATELET COUNT (AUTO) 350 K/uL (150-450); RED BLOOD CELL COUNT(AUTO) 4.05 MIL/uL (4.50-5.90); RED CELL DISTRIBUTION WIDTH 15.8 % (11.5-14.5)
[2020-10-03 07:33] LABS: D-DIMER 1.22 mg/L FEU (0.00-0.50)
[2020-10-03 07:58] LABS: ALANINE AMINOTRANSFERASE 54 U/L (12-78); ALBUMIN 1.7 g/dL (3.4-5.0); ALKALINE PHOSPHATASE 73 U/L (46-116); ANION GAP 2 mmol/L (8-16); ASPARTATE AMINOTRANSFERASE 44 U/L (15-37); BILIRUBIN,TOTAL 0.7 mg/dL (0.1-1.0); C-REACTIVE PROTEIN QUANT 10.34 mg/dL (0.00-0.30); CALCIUM, TOTAL 8.4 mg/dL (8.8-10.5); CARBON DIOXIDE 38 mmol/L (22-29); CHLORIDE 99 mmol/L (98-107); CREATININE 0.76 mg/dL (0.60-1.30); FERRITIN 888 ng/mL (26-388); GLOMERULAR FILTR. RATE CALC > 60 mL/min (>60); GLUCOSE,RANDOM 107 mg/dL (70-110); SODIUM SERUM 139 mmol/L (136-145); TOTAL PROTEIN, SERUM 6.9 g/dL (6.4-8.2); UREA NITROGEN, BLOOD 17 mg/dL (7-18)
[2020-10-03 08:00] VITALS: BP 232/90
[2020-10-03] MEDS: PROPOFOL 1000 MG/ISO-OSM 100 ML IV PRN ×3 (09:20→22:10)
[2020-10-03] MEDS: ZINC SULFATE 220 MG CAPSULE PO SCH ×2 (09:21→20:33)
[2020-10-03] MEDS: ASCORBIC ACID 500 MG TABLET PO SCH ×2 (09:21→20:33)
[2020-10-03] MEDS: FAMOTIDINE 20 MG TABLET PO SCH ×2 (09:21→20:33)
[2020-10-03] MEDS: DOCUSATE SODIUM 100 MG CAPSULE PO SCH ×2 (09:21→20:33)
[2020-10-03] MEDS: CHOLECALCIFEROL (VIT D3) 1,000 UNITS [25 MCG] TABLET PO SCH (09:22)
[2020-10-03] MEDS: LACTULOSE 20 GM/30 ML SOLUTION UDCUP PO SCH ×2 (09:22→20:33)
[2020-10-03] MEDS: DEXAMETHASONE SOD PHOS 4 MG/ML VIAL IVP SCH (09:23)
[2020-10-03] MEDS: METOCLOPRAMIDE HCL 5 MG/ML 2 ML VIAL IVP SCH ×3 (09:23→20:32)
[2020-10-03 12:00] VITALS: BP 126/57
[2020-10-03] MEDS: AMINO ACIDS/PROTEIN HYDROLYS 30 ML TUBE PO SCH ×2 (12:07→17:09)
[2020-10-03] MEDS: FentaNYL CIT 1000MCG/D5%-WATER 100 ML IV PRN ×3 (12:08→20:34)
[2020-10-03 16:00] VITALS: BP 116/67
[2020-10-03 20:00] VITALS: BP 122/56
[2020-10-03] MEDS: ATORVASTATIN CALCIUM 20 MG TABLET PO SCH (20:33)
[2020-10-04] VITALS: BP 108/51
[2020-10-04] MEDS ORDERED: SODIUM CHLORIDE 0.9% 250 ML IV ONE (00:18)
[2020-10-04] MEDS ORDERED: SODIUM CHLORIDE 0.9% 500 ML IV ONE (00:18)
[2020-10-04] MEDS: PROPOFOL 1000 MG/ISO-OSM 100 ML IV PRN ×8 (01:30→20:30)
[2020-10-04] MEDS: FentaNYL CIT 1000MCG/D5%-WATER 100 ML IV PRN ×4 (03:10→18:15)
[2020-10-04 04:00] VITALS: BP 123/61
[2020-10-04] MEDS: CISATRACURIUM BESYLATE 50 MG in DEXTROSE 5%-WATER 245 ML IV PRN ×6 (04:48→22:26)
[2020-10-04 06:35] LABS: BASOPHILS % (AUTO) 0.2 % (0.0-2.0); EOSINOPHILS % (AUTO) 1.5 % (1.0-6.0); HEMATOCRIT 35.7 % (41-53); HEMOGLOBIN 11.7 g/dL (13.5-17.5); LYMPHOCYTES # (AUTO) 1.3 K/uL (1.0-4.8); LYMPHOCYTES % (AUTO) 10.3 % (22.0-44.0); MEAN CORPUSCULAR HEMOGLOBIN 29.7 pg (26.0-34.0); MEAN CORPUSCULAR HGB CONC 32.9 G/dL (31.0-37.0); MEAN CORPUSCULAR VOLUME 90 fL (80-100); MONOCYTES # (AUTO) 1.1 K/uL (0.1-1.0); NEUTROPHILS # (AUTO) 9.9 K/uL (1.8-7.7); PLATELET COUNT (AUTO) 301 K/uL (150-450); RED BLOOD CELL COUNT(AUTO) 3.95 MIL/uL (4.50-5.90); RED CELL DISTRIBUTION WIDTH 16.2 % (11.5-14.5)
[2020-10-04 06:50] LABS: ANION GAP 0 mmol/L (8-16); CALCIUM, TOTAL 8.4 mg/dL (8.8-10.5); CARBON DIOXIDE 39 mmol/L (22-29); CHLORIDE 99 mmol/L (98-107); CREATININE 0.69 mg/dL (0.60-1.30); GLOMERULAR FILTR. RATE CALC > 60 mL/min (>60); GLUCOSE,RANDOM 111 mg/dL (70-110); POTASSIUM 3.9 mmol/L (3.5-5.1); SODIUM SERUM 138 mmol/L (136-145); UREA NITROGEN, BLOOD 19 mg/dL (7-18)
[2020-10-04 08:00] VITALS: BP 125/52
[2020-10-04] MEDS: ASCORBIC ACID 500 MG TABLET PO SCH ×2 (08:03→23:07)
[2020-10-04] MEDS: LACTULOSE 20 GM/30 ML SOLUTION UDCUP PO SCH ×2 (08:03→23:07)
[2020-10-04] MEDS: DEXAMETHASONE SOD PHOS 4 MG/ML VIAL IVP SCH (08:04)
[2020-10-04] MEDS: ZINC SULFATE 220 MG CAPSULE PO SCH ×2 (08:04→23:08)
[2020-10-04] MEDS: CHOLECALCIFEROL (VIT D3) 1,000 UNITS [25 MCG] TABLET PO SCH (08:04)
[2020-10-04] MEDS: DOCUSATE SODIUM 100 MG CAPSULE PO SCH ×2 (08:04→23:07)
[2020-10-04] MEDS: FAMOTIDINE 20 MG TABLET PO SCH ×2 (08:04→23:08)
[2020-10-04] MEDS: METOCLOPRAMIDE HCL 5 MG/ML 2 ML VIAL IVP SCH ×3 (08:05→23:07)
[2020-10-04 08:08] LABS: ABG A-A DIFF O2 382.3 mmHg (10-20.0); ABG BASE EXCESS 13.6 mmol/L (-2.0-3.0); ABG CARBOXYHEMOGLOBIN 1.8 % (0.0-1.5); ABG HCO3 34.8 mmol/L (22.0-26.0); ABG METHEMOGLOBIN 0.3 % (0.0-1.5); ABG OXYGEN CONTENT 15.7 mL/dL (15.0-23.0); ABG OXYGEN SATURATION 87.5 % (95.0-98.0); ABG OXYHEMOGLOBIN 85.7 % (94.0-100.0); ABG PCO2 59 mmHg (35-45); ABG PH 7.425 (7.35-7.450); PO2, ARTERIAL BG 53.2 mmHg (84.0-92.0); SOURCE, BLOOD GAS ARTERIAL; TEMPERATURE, FAHRENHEIT, BG 98.6 FAHREN (96.0-98.6)
[2020-10-04 08:53] LABS: O2 DEVICE,BLOOD GAS VENTILATOR (ROOM AIR); PEEP,BG 8 cm H2O; VT, ABG 450 ml
[2020-10-04 08:54] LABS: SITE, BLOOD GAS ARTERIAL LINE
[2020-10-04] MEDS ORDERED: 0.9% SODIUM CHLORIDE 5 ML NEB SOLUTION NEB ONE (11:28)
[2020-10-04] MEDS ORDERED: ALBUTEROL SULFATE 2.5 MG/0.5 ML NEB SOLUTION NEB PRN (11:30)
[2020-10-04] MEDS: AMINO ACIDS/PROTEIN HYDROLYS 30 ML TUBE PO SCH ×2 (11:49→16:10)
[2020-10-04 12:00] VITALS: BP 195/85
[2020-10-04 13:12] LABS: ABG A-A DIFF O2 537.1 mmHg (10-20.0); ABG BASE EXCESS 13.3 mmol/L (-2.0-3.0); ABG CARBOXYHEMOGLOBIN 1.7 % (0.0-1.5); ABG HCO3 33.9 mmol/L (22.0-26.0); ABG METHEMOGLOBIN 0.3 % (0.0-1.5); ABG OXYGEN CONTENT 18.3 mL/dL (15.0-23.0); ABG OXYHEMOGLOBIN 95.1 % (94.0-100.0); ABG PH 7.325 (7.35-7.450); ABG TOTAL HEMOGLOBIN 13.6 G/dL (12.0-18.0); PO2, ARTERIAL BG 98.7 mmHg (84.0-92.0); SOURCE, BLOOD GAS ARTERIAL; TEMPERATURE, FAHRENHEIT, BG 98.6 FAHREN (96.0-98.6)
[2020-10-04 13:27] LABS: ABG PCO2 77 mmHg (35-45); O2 DEVICE,BLOOD GAS VENTILATOR (ROOM AIR); PEEP,BG 10 cm H2O; SITE, BLOOD GAS ARTERIAL LINE; VENT MODE, BG Press. Control Vent (ROOM AIR); VT, ABG 400 ml
[2020-10-04 13:28] LABS: INSPIRATORY TIME, BG 1 SEC
[2020-10-04 16:00] VITALS: BP 100/52
[2020-10-04 20:00] VITALS: BP 143/70
[2020-10-04 22:58] LABS: APPEARANCE,URINE CLEAR (CLEAR); BILIRUBIN,URINE NEGATIVE (NEGATIVE); GLUCOSE, URINE (UA) NEGATIVE (NEGATIVE); KETONES,URINE NEGATIVE (NEGATIVE); LEUKOCYTE ESTERASE ,URINE NEGATIVE (NEGATIVE); NITRATE,URINE NEGATIVE (NEGATIVE); OCCULT BLOOD,URINE NEGATIVE (NEGATIVE); PH,URINE 6.5 (5.0-8.0); PROTEIN,URINE NEGATIVE (NEGATIVE)
[2020-10-04 23:06] LABS: BACTERIA,URINE None Seen /HPF (None Seen); RBC,URINE 0-2 /HPF (0-2); SQUAMOUS EPITHELIAL CELL,UR Rare /LPF (None Seen); WBC,URINE 0-2 /HPF (0-5)
[2020-10-04] MEDS: ATORVASTATIN CALCIUM 20 MG TABLET PO SCH (23:07)
[2020-10-05] VITALS: BP 167/76
[2020-10-05] MEDS ORDERED: SODIUM CHLORIDE 0.9% 250 ML IV ONE (00:38)
[2020-10-05] MEDS ORDERED: SODIUM CHLORIDE 0.9% 500 ML IV ONE (00:38)
[2020-10-05] MEDS: PROPOFOL 1000 MG/ISO-OSM 100 ML IV PRN ×7 (00:40→21:39)
[2020-10-05] MEDS: FentaNYL CIT 1000MCG/D5%-WATER 100 ML IV PRN ×5 (00:47→19:56)
[2020-10-05] MEDS: CISATRACURIUM BESYLATE 100 MG in DEXTROSE 5%-WATER 240 ML IV PRN ×5 (00:56→22:54)
[2020-10-05] MEDS: HEPARIN SODIUM 25000 UNITS/D5W 250 ML IV PRN (03:54)
[2020-10-05 04:00] VITALS: BP 168/74
[2020-10-05 06:17] LABS: BASOPHILS % (AUTO) 0.6 % (0.0-2.0); EOSINOPHILS % (AUTO) 2.9 % (1.0-6.0); HEMATOCRIT 38.4 % (41-53); HEMOGLOBIN 12.5 g/dL (13.5-17.5); LYMPHOCYTES # (AUTO) 1.1 K/uL (1.0-4.8); LYMPHOCYTES % (AUTO) 7.5 % (22.0-44.0); MEAN CORPUSCULAR HEMOGLOBIN 29.7 pg (26.0-34.0); MEAN CORPUSCULAR HGB CONC 32.6 G/dL (31.0-37.0); MEAN CORPUSCULAR VOLUME 91 fL (80-100); MONOCYTES # (AUTO) 1.4 K/uL (0.1-1.0); MONOCYTES % (AUTO) 9.6 % (2.0-9.0); NEUTROPHILS # (AUTO) 11.3 K/uL (1.8-7.7); NEUTROPHILS % (AUTO) 79.4 % (40.0-70.0); PLATELET COUNT (AUTO) 279 K/uL (150-450); RED BLOOD CELL COUNT(AUTO) 4.21 MIL/uL (4.50-5.90); RED CELL DISTRIBUTION WIDTH 16.1 % (11.5-14.5)
[2020-10-05 06:41] LABS: D-DIMER 1.2 mg/L FEU (0.00-0.50)
[2020-10-05 07:13] LABS: ALANINE AMINOTRANSFERASE 61 U/L (12-78); ALBUMIN 1.8 g/dL (3.4-5.0); ALKALINE PHOSPHATASE 77 U/L (46-116); ANION GAP 2 mmol/L (8-16); ASPARTATE AMINOTRANSFERASE 48 U/L (15-37); BILIRUBIN,TOTAL 0.6 mg/dL (0.1-1.0); CALCIUM, TOTAL 8.9 mg/dL (8.8-10.5); CARBON DIOXIDE 37 mmol/L (22-29); CHLORIDE 99 mmol/L (98-107); CREATINE KINASE, TOTAL ONLY 82 U/L (39-308); CREATININE 0.62 mg/dL (0.60-1.30); FERRITIN 1287 ng/mL (26-388); GLOMERULAR FILTR. RATE CALC > 60 mL/min (>60); GLUCOSE,RANDOM 108 mg/dL (70-110); LACTATE DEHYDROGENASE 260 U/L (85-227); POTASSIUM 4.1 mmol/L (3.5-5.1); SODIUM SERUM 138 mmol/L (136-145); TOTAL PROTEIN, SERUM 7.3 g/dL (6.4-8.2); UREA NITROGEN, BLOOD 13 mg/dL (7-18)
[2020-10-05 08:00] VITALS: BP 190/75
[2020-10-05] MEDS: FAMOTIDINE 20 MG TABLET PO SCH ×2 (09:10→20:38)
[2020-10-05] MEDS: DEXAMETHASONE SOD PHOS 4 MG/ML VIAL IVP SCH (09:10)
[2020-10-05] MEDS: METOCLOPRAMIDE HCL 5 MG/ML 2 ML VIAL IVP SCH ×3 (09:10→20:37)
[2020-10-05] MEDS: ZINC SULFATE 220 MG CAPSULE PO SCH ×2 (09:10→20:37)
[2020-10-05] MEDS: ASCORBIC ACID 500 MG TABLET PO SCH ×2 (09:10→20:37)
[2020-10-05] MEDS: CHOLECALCIFEROL (VIT D3) 1,000 UNITS [25 MCG] TABLET PO SCH (09:10)
[2020-10-05] MEDS: LACTULOSE 20 GM/30 ML SOLUTION UDCUP PO SCH ×2 (09:10→20:37)
[2020-10-05] MEDS: DOCUSATE SODIUM 100 MG CAPSULE PO SCH ×2 (09:10→20:37)
[2020-10-05 12:00] VITALS: BP 124/56
[2020-10-05] MEDS: AMINO ACIDS/PROTEIN HYDROLYS 30 ML TUBE PO SCH ×2 (12:07→16:00)
[2020-10-05 16:00] VITALS: BP 97/50
[2020-10-05 20:00] VITALS: BP 106/52
[2020-10-05] MEDS: ATORVASTATIN CALCIUM 20 MG TABLET PO SCH (20:37)
[2020-10-06] VITALS: BP 244/95
[2020-10-06] MEDS: FentaNYL CIT 1000MCG/D5%-WATER 100 ML IV PRN ×5 (00:36→22:00)
[2020-10-06] MEDS: PROPOFOL 1000 MG/ISO-OSM 100 ML IV PRN ×8 (00:37→23:26)
[2020-10-06] MEDS: LORazepam 2 MG/ML VIAL IVP PRN (00:50)
[2020-10-06] MEDS ORDERED: HydrALAZINE HCL 20 MG/ML VIAL IVP PRN (02:00)
[2020-10-06] MEDS: HydrALAZINE HCL 20 MG/ML VIAL IVP PRN (02:15)
[2020-10-06] MEDS: HEPARIN SODIUM 25000 UNITS/D5W 250 ML IV PRN ×2 (02:16→22:45)
[2020-10-06 04:00] VITALS: BP 126/83
[2020-10-06] MEDS: CISATRACURIUM BESYLATE 100 MG in DEXTROSE 5%-WATER 240 ML IV PRN ×4 (04:26→21:22)
[2020-10-06 08:00] VITALS: BP 175/77
[2020-10-06] MEDS: DOCUSATE SODIUM 100 MG CAPSULE PO SCH ×2 (09:37→20:23)
[2020-10-06] MEDS: ASCORBIC ACID 500 MG TABLET PO SCH ×2 (09:37→20:23)
[2020-10-06] MEDS: LACTULOSE 20 GM/30 ML SOLUTION UDCUP PO SCH ×2 (09:37→20:21)
[2020-10-06] MEDS: FAMOTIDINE 20 MG TABLET PO SCH ×2 (09:37→20:23)
[2020-10-06] MEDS: CHOLECALCIFEROL (VIT D3) 1,000 UNITS [25 MCG] TABLET PO SCH (09:38)
[2020-10-06] MEDS: METOCLOPRAMIDE HCL 5 MG/ML 2 ML VIAL IVP SCH ×3 (09:38→20:22)
[2020-10-06] MEDS: ZINC SULFATE 220 MG CAPSULE PO SCH ×2 (09:38→20:23)
[2020-10-06] MEDS: DEXAMETHASONE SOD PHOS 4 MG/ML VIAL IVP SCH (09:38)
[2020-10-06] MEDS: MIDAZOLAM HCL 100 MG in DEXTROSE 5%-WATER 180 ML IV PRN (11:11)
[2020-10-06 12:00] VITALS: BP 125/68
[2020-10-06] MEDS: AMINO ACIDS/PROTEIN HYDROLYS 30 ML TUBE PO SCH ×2 (12:01→17:12)
[2020-10-06] MEDS: OxyCODONE HCL 5 MG IR TABLET PO SCH ×3 (13:28→20:23)
[2020-10-06] MEDS: NOREPINEPHRINE 4 MG/D5%-WATER 250 ML IV PRN (14:13)
[2020-10-06] MEDS: DIAZEPAM 5 MG TABLET PO SCH ×2 (15:19→20:22)
[2020-10-06 16:00] VITALS: BP 101/55
[2020-10-06 20:00] VITALS: BP 115/55
[2020-10-06] MEDS: ATORVASTATIN CALCIUM 20 MG TABLET PO SCH (20:23)
[2020-10-06] MEDS: ACETAMINOPHEN 325 MG TABLET PO PRN (21:59)
[2020-10-06] MEDS ORDERED: SODIUM CHLORIDE 0.9% 250 ML IV ONE (23:57)
[2020-10-07] VITALS: BP 124/59
[2020-10-07] MEDS: CISATRACURIUM BESYLATE 100 MG in DEXTROSE 5%-WATER 240 ML IV PRN ×4 (03:12→20:01)
[2020-10-07] MEDS: PROPOFOL 1000 MG/ISO-OSM 100 ML IV PRN ×6 (03:18→21:41)
[2020-10-07 04:00] VITALS: BP 129/61
[2020-10-07] MEDS: FentaNYL CIT 1000MCG/D5%-WATER 100 ML IV PRN ×5 (04:06→22:41)
[2020-10-07 07:05] LABS: BASOPHILS % (AUTO) 0.4 % (0.0-2.0); EOSINOPHILS % (AUTO) 2.5 % (1.0-6.0); HEMATOCRIT 37.4 % (41-53); HEMOGLOBIN 12.2 g/dL (13.5-17.5); LYMPHOCYTES # (AUTO) 1.2 K/uL (1.0-4.8); LYMPHOCYTES % (AUTO) 8.6 % (22.0-44.0); MEAN CORPUSCULAR HEMOGLOBIN 29.5 pg (26.0-34.0); MEAN CORPUSCULAR HGB CONC 32.6 G/dL (31.0-37.0); MEAN CORPUSCULAR VOLUME 91 fL (80-100); MONOCYTES % (AUTO) 7.7 % (2.0-9.0); NEUTROPHILS # (AUTO) 10.9 K/uL (1.8-7.7); NEUTROPHILS % (AUTO) 80.8 % (40.0-70.0); PLATELET COUNT (AUTO) 226 K/uL (150-450); RED BLOOD CELL COUNT(AUTO) 4.13 MIL/uL (4.50-5.90); RED CELL DISTRIBUTION WIDTH 16.1 % (11.5-14.5)
[2020-10-07 07:25] LABS: D-DIMER 0.78 mg/L FEU (0.00-0.50)
[2020-10-07 07:28] LABS: ALANINE AMINOTRANSFERASE 69 U/L (12-78); ALBUMIN 1.7 g/dL (3.4-5.0); ALKALINE PHOSPHATASE 71 U/L (46-116); ANION GAP 4 mmol/L (8-16); ASPARTATE AMINOTRANSFERASE 44 U/L (15-37); BILIRUBIN,TOTAL 0.7 mg/dL (0.1-1.0); C-REACTIVE PROTEIN QUANT 10.53 mg/dL (0.00-0.30); CALCIUM, TOTAL 8.8 mg/dL (8.8-10.5); CARBON DIOXIDE 36 mmol/L (22-29); CHLORIDE 96 mmol/L (98-107); CREATININE 0.61 mg/dL (0.60-1.30); GLOMERULAR FILTR. RATE CALC > 60 mL/min (>60); GLUCOSE,RANDOM 111 mg/dL (70-110); POTASSIUM 3.6 mmol/L (3.5-5.1); SODIUM SERUM 136 mmol/L (136-145); UREA NITROGEN, BLOOD 14 mg/dL (7-18)
[2020-10-07 08:00] VITALS: BP 124/61
[2020-10-07] MEDS: OxyCODONE HCL 5 MG IR TABLET PO SCH ×4 (09:36→20:01)
[2020-10-07] MEDS: ASCORBIC ACID 500 MG TABLET PO SCH ×2 (09:36→20:01)
[2020-10-07] MEDS: FAMOTIDINE 20 MG TABLET PO SCH ×2 (09:36→20:00)
[2020-10-07] MEDS: LACTULOSE 20 GM/30 ML SOLUTION UDCUP PO SCH ×2 (09:36→20:00)
[2020-10-07] MEDS: DIAZEPAM 5 MG TABLET PO SCH ×3 (09:36→20:00)
[2020-10-07] MEDS: ZINC SULFATE 220 MG CAPSULE PO SCH ×2 (09:37→20:01)
[2020-10-07] MEDS: DOCUSATE SODIUM 100 MG CAPSULE PO SCH ×2 (09:37→20:00)
[2020-10-07] MEDS: CHOLECALCIFEROL (VIT D3) 1,000 UNITS [25 MCG] TABLET PO SCH (09:37)
[2020-10-07] MEDS: METOCLOPRAMIDE HCL 5 MG/ML 2 ML VIAL IVP SCH ×3 (09:37→20:00)
[2020-10-07] MEDS: DEXAMETHASONE SOD PHOS 4 MG/ML VIAL IVP SCH (09:38)
[2020-10-07 12:00] VITALS: BP 121/62
[2020-10-07] MEDS: AMINO ACIDS/PROTEIN HYDROLYS 30 ML TUBE PO SCH ×2 (12:45→16:20)
[2020-10-07 17:33] VITALS: BP 125/64
[2020-10-07] MEDS: DAPTOMYCIN 500 MG in SODIUM CHLORIDE 0.9% 50 ML IV SCH (18:08)
[2020-10-07 20:00] VITALS: BP 164/66
[2020-10-07] MEDS: ATORVASTATIN CALCIUM 20 MG TABLET PO SCH (20:01)
[2020-10-07] MEDS: HEPARIN SODIUM 25000 UNITS/D5W 250 ML IV PRN (22:37)
[2020-10-08] VITALS: BP 155/65
[2020-10-08] MEDS: CISATRACURIUM BESYLATE 100 MG in DEXTROSE 5%-WATER 240 ML IV PRN ×6 (01:09→22:22)
[2020-10-08] MEDS: PROPOFOL 1000 MG/ISO-OSM 100 ML IV PRN ×7 (01:09→20:25)
[2020-10-08] MEDS: FentaNYL CIT 1000MCG/D5%-WATER 100 ML IV PRN ×4 (02:44→20:24)
[2020-10-08 04:00] VITALS: BP 130/54
[2020-10-08] MEDS ORDERED: SODIUM CHLORIDE 0.9% 500 ML IV ONE (04:37)
[2020-10-08 06:22] LABS: ANION GAP 3 mmol/L (8-16); C-REACTIVE PROTEIN QUANT 9.53 mg/dL (0.00-0.30); CALCIUM, TOTAL 8.7 mg/dL (8.8-10.5); CARBON DIOXIDE 37 mmol/L (22-29); CHLORIDE 99 mmol/L (98-107); CREATINE KINASE, TOTAL ONLY 338 U/L (39-308); CREATININE 0.61 mg/dL (0.60-1.30); GLOMERULAR FILTR. RATE CALC > 60 mL/min (>60); GLUCOSE,RANDOM 114 mg/dL (70-110); POTASSIUM 3.4 mmol/L (3.5-5.1); SODIUM SERUM 139 mmol/L (136-145); UREA NITROGEN, BLOOD 13 mg/dL (7-18)
[2020-10-08] MEDS: LACTULOSE 20 GM/30 ML SOLUTION UDCUP PO SCH ×2 (08:16→20:25)
[2020-10-08] MEDS: DOCUSATE SODIUM 100 MG CAPSULE PO SCH ×2 (08:16→20:26)
[2020-10-08] MEDS: CHOLECALCIFEROL (VIT D3) 1,000 UNITS [25 MCG] TABLET PO SCH (08:16)
[2020-10-08] MEDS: FAMOTIDINE 20 MG TABLET PO SCH ×2 (08:16→20:26)
[2020-10-08] MEDS: ZINC SULFATE 220 MG CAPSULE PO SCH ×2 (08:16→20:26)
[2020-10-08] MEDS: DIAZEPAM 5 MG TABLET PO SCH ×3 (08:16→20:26)
[2020-10-08] MEDS: ASCORBIC ACID 500 MG TABLET PO SCH ×2 (08:16→20:26)
[2020-10-08] MEDS: OxyCODONE HCL 5 MG IR TABLET PO SCH ×4 (08:16→20:26)
[2020-10-08] MEDS: DEXAMETHASONE SOD PHOS 4 MG/ML VIAL IVP SCH (08:17)
[2020-10-08] MEDS: METOCLOPRAMIDE HCL 5 MG/ML 2 ML VIAL IVP SCH ×3 (08:17→20:26)
[2020-10-08] MEDS: AMINO ACIDS/PROTEIN HYDROLYS 30 ML TUBE PO SCH ×2 (12:20→16:52)
[2020-10-08] MEDS: POTASSIUM CHL 10 MEQ/WATER 50 ML IV SCH ×4 (12:20→13:26)
[2020-10-08] MEDS: DAPTOMYCIN 500 MG in SODIUM CHLORIDE 0.9% 50 ML IV SCH (17:51)
[2020-10-08 18:00] VITALS: BP 133/53
[2020-10-08 20:00] VITALS: BP 117/60
[2020-10-08] MEDS: HEPARIN SODIUM 25000 UNITS/D5W 250 ML IV PRN (20:24)
[2020-10-08] MEDS: ATORVASTATIN CALCIUM 20 MG TABLET PO SCH (20:26)
[2020-10-08] MEDS: NOREPINEPHRINE 4 MG/D5%-WATER 250 ML IV PRN (21:13)
[2020-10-09] VITALS: BP 129/58
[2020-10-09] MEDS: HydrALAZINE HCL 20 MG/ML VIAL IVP PRN (01:29)
[2020-10-09] MEDS: PROPOFOL 1000 MG/ISO-OSM 100 ML IV PRN ×7 (01:49→23:21)
[2020-10-09] MEDS: CISATRACURIUM BESYLATE 100 MG in DEXTROSE 5%-WATER 240 ML IV PRN ×5 (02:25→23:20)
[2020-10-09] MEDS: FentaNYL CIT 1000MCG/D5%-WATER 100 ML IV PRN ×5 (02:26→23:20)
[2020-10-09 04:00] VITALS: BP 166/64
[2020-10-09] MEDS: LACTULOSE 20 GM/30 ML SOLUTION UDCUP PO SCH ×2 (07:55→20:05)
[2020-10-09] MEDS: DIAZEPAM 5 MG TABLET PO SCH ×3 (07:57→20:05)
[2020-10-09] MEDS: ZINC SULFATE 220 MG CAPSULE PO SCH ×2 (07:57→20:06)
[2020-10-09] MEDS: ASCORBIC ACID 500 MG TABLET PO SCH ×2 (07:57→20:06)
[2020-10-09] MEDS: FAMOTIDINE 20 MG TABLET PO SCH ×2 (07:57→20:05)
[2020-10-09] MEDS: METOCLOPRAMIDE HCL 5 MG/ML 2 ML VIAL IVP SCH ×3 (07:57→20:06)
[2020-10-09] MEDS: DEXAMETHASONE SOD PHOS 4 MG/ML VIAL IVP SCH (07:57)
[2020-10-09] MEDS: CHOLECALCIFEROL (VIT D3) 1,000 UNITS [25 MCG] TABLET PO SCH (07:58)
[2020-10-09] MEDS: DOCUSATE SODIUM 100 MG CAPSULE PO SCH ×2 (07:58→20:06)
[2020-10-09] MEDS: OxyCODONE HCL 5 MG IR TABLET PO SCH ×4 (07:58→20:05)
[2020-10-09 08:00] VITALS: BP 144/63
[2020-10-09] MEDS: MIDAZOLAM HCL 100 MG in DEXTROSE 5%-WATER 180 ML IV PRN (10:16)
[2020-10-09] MEDS: AMINO ACIDS/PROTEIN HYDROLYS 30 ML TUBE PO SCH ×2 (11:55→15:52)
[2020-10-09 12:00] VITALS: BP 132/70
[2020-10-09 16:00] VITALS: BP 129/62
[2020-10-09] MEDS: DAPTOMYCIN 500 MG in SODIUM CHLORIDE 0.9% 50 ML IV SCH (16:59)
[2020-10-09] MEDS: HEPARIN SODIUM 25000 UNITS/D5W 250 ML IV PRN (16:59)
[2020-10-09 17:24] LABS: ABG CARBOXYHEMOGLOBIN 1.1 % (0.0-1.5); ABG METHEMOGLOBIN 0.3 % (0.0-1.5); ABG TOTAL HEMOGLOBIN 13.1 G/dL (12.0-18.0); SOURCE, BLOOD GAS ARTERIAL; TEMPERATURE, FAHRENHEIT, BG 97.5 FAHREN (96.0-98.6)
[2020-10-09 17:29] LABS: ABG A-A DIFF O2 238.5 mmHg (10-20.0); ABG BASE EXCESS 7.8 mmol/L (-2.0-3.0); ABG HCO3 30.1 mmol/L (22.0-26.0); ABG OXYGEN CONTENT 16.7 mL/dL (15.0-23.0); ABG OXYGEN SATURATION 92.2 % (95.0-98.0); ABG OXYHEMOGLOBIN 90.9 % (94.0-100.0); ABG PCO2 52 mmHg (35-45)
[2020-10-09 17:30] LABS: O2 DEVICE,BLOOD GAS VENTILATOR (ROOM AIR); PEEP,BG 10 cm H2O; SITE, BLOOD GAS ARTERIAL LINE; VENT MODE, BG Press. Control Vent (ROOM AIR)
[2020-10-09 17:31] LABS: INSPIRATORY TIME, BG 0.9 SEC; SPONTANEOUS VT, BG 392 ml
[2020-10-09] MEDS: NOREPINEPHRINE 4 MG/D5%-WATER 250 ML IV PRN (17:36)
[2020-10-09 20:00] VITALS: BP 115/49
[2020-10-09] MEDS: ATORVASTATIN CALCIUM 20 MG TABLET PO SCH (20:05)
[2020-10-10] VITALS: BP 116/47
[2020-10-10] MEDS: PROPOFOL 1000 MG/ISO-OSM 100 ML IV PRN ×6 (03:52→21:32)
[2020-10-10 04:00] VITALS: BP 116/47
[2020-10-10] MEDS ORDERED: SODIUM CHLORIDE 0.9% 250 ML IV ONE (05:48)
[2020-10-10 05:55] LABS: BASOPHILS % (AUTO) 0.4 % (0.0-2.0); EOSINOPHILS % (AUTO) 2.6 % (1.0-6.0); HEMATOCRIT 35.5 % (41-53); HEMOGLOBIN 11.9 g/dL (13.5-17.5); LYMPHOCYTES # (AUTO) 1.4 K/uL (1.0-4.8); MEAN CORPUSCULAR HEMOGLOBIN 29.9 pg (26.0-34.0); MEAN CORPUSCULAR HGB CONC 33.4 G/dL (31.0-37.0); MEAN CORPUSCULAR VOLUME 90 fL (80-100); MONOCYTES # (AUTO) 0.7 K/uL (0.1-1.0); MONOCYTES % (AUTO) 4.9 % (2.0-9.0); NEUTROPHILS # (AUTO) 11.5 K/uL (1.8-7.7); NEUTROPHILS % (AUTO) 82.1 % (40.0-70.0); PLATELET COUNT (AUTO) 217 K/uL (150-450); RED BLOOD CELL COUNT(AUTO) 3.96 MIL/uL (4.50-5.90)
[2020-10-10 06:43] LABS: ALANINE AMINOTRANSFERASE 50 U/L (12-78); ALBUMIN 1.6 g/dL (3.4-5.0); ALKALINE PHOSPHATASE 69 U/L (46-116); ANION GAP 1 mmol/L (8-16); ASPARTATE AMINOTRANSFERASE 37 U/L (15-37); BILIRUBIN,TOTAL 0.5 mg/dL (0.1-1.0); C-REACTIVE PROTEIN QUANT 11.65 mg/dL (0.00-0.30); CALCIUM, TOTAL 8.8 mg/dL (8.8-10.5); CARBON DIOXIDE 35 mmol/L (22-29); CHLORIDE 99 mmol/L (98-107); CREATINE KINASE, TOTAL ONLY 238 U/L (39-308); CREATININE 0.63 mg/dL (0.60-1.30); GLOMERULAR FILTR. RATE CALC > 60 mL/min (>60); GLUCOSE,RANDOM 102 mg/dL (70-110); POTASSIUM 3.4 mmol/L (3.5-5.1); SODIUM SERUM 135 mmol/L (136-145); TOTAL PROTEIN, SERUM 6.6 g/dL (6.4-8.2); UREA NITROGEN, BLOOD 14 mg/dL (7-18)
[2020-10-10] MEDS: FentaNYL CIT 1000MCG/D5%-WATER 100 ML IV PRN ×3 (06:45→20:50)
[2020-10-10 08:00] VITALS: BP 98/60
[2020-10-10] MEDS: ZINC SULFATE 220 MG CAPSULE PO SCH ×2 (08:27→20:56)
[2020-10-10] MEDS: DEXAMETHASONE SOD PHOS 4 MG/ML VIAL IVP SCH (08:27)
[2020-10-10] MEDS: LACTULOSE 20 GM/30 ML SOLUTION UDCUP PO SCH ×2 (08:27→20:55)
[2020-10-10] MEDS: CHOLECALCIFEROL (VIT D3) 1,000 UNITS [25 MCG] TABLET PO SCH (08:28)
[2020-10-10] MEDS: DIAZEPAM 5 MG TABLET PO SCH ×3 (08:28→20:57)
[2020-10-10] MEDS: ASCORBIC ACID 500 MG TABLET PO SCH ×2 (08:28→20:57)
[2020-10-10] MEDS: DOCUSATE SODIUM 100 MG CAPSULE PO SCH ×2 (08:28→20:56)
[2020-10-10] MEDS: METOCLOPRAMIDE HCL 5 MG/ML 2 ML VIAL IVP SCH ×3 (08:28→20:55)
[2020-10-10] MEDS: FAMOTIDINE 20 MG TABLET PO SCH ×2 (08:28→20:57)
[2020-10-10] MEDS: OxyCODONE HCL 5 MG IR TABLET PO SCH ×4 (08:29→20:57)
[2020-10-10] MEDS: ACETAMINOPHEN 325 MG TABLET PO PRN (10:02)
[2020-10-10 12:00] VITALS: BP 106/49
[2020-10-10] MEDS: AMINO ACIDS/PROTEIN HYDROLYS 30 ML TUBE PO SCH ×2 (12:19→17:07)
[2020-10-10] MEDS: HEPARIN SODIUM 25000 UNITS/D5W 250 ML IV PRN (12:57)
[2020-10-10 16:00] VITALS: BP 122/55
[2020-10-10] MEDS: DAPTOMYCIN 500 MG in SODIUM CHLORIDE 0.9% 50 ML IV SCH (17:07)
[2020-10-10 17:51] LABS: APPEARANCE,URINE CLOUDY (CLEAR); BILIRUBIN,URINE NEGATIVE (NEGATIVE); GLUCOSE, URINE (UA) NEGATIVE (NEGATIVE); KETONES,URINE NEGATIVE (NEGATIVE); LEUKOCYTE ESTERASE ,URINE LARGE (NEGATIVE); NITRATE,URINE NEGATIVE (NEGATIVE); OCCULT BLOOD,URINE NEGATIVE (NEGATIVE); PROTEIN,URINE TRACE (NEGATIVE)
[2020-10-10 18:19] LABS: BACTERIA,URINE Many /HPF (None Seen); RBC,URINE 0-2 /HPF (0-2)
[2020-10-10 18:20] LABS: SQUAMOUS EPITHELIAL CELL,UR Rare /LPF (None Seen)
[2020-10-10] MEDS ORDERED: BISACODYL 10 MG RECTAL RECTAL SUPPOSITORY PR PRN (18:30)
[2020-10-10] MEDS ORDERED: POTASSIUM CHLORIDE 20 MEQ ER TABLET PO PRN (18:30)
[2020-10-10] MEDS ORDERED: *CLINICAL-CEFEPIME DOSING CLINICAL ONE (18:45)
[2020-10-10 20:00] VITALS: BP 111/46
[2020-10-10 20:12] LABS: ABG A-A DIFF O2 267.4 mmHg (10-20.0); ABG BASE EXCESS 7.8 mmol/L (-2.0-3.0); ABG CARBOXYHEMOGLOBIN 1.6 % (0.0-1.5); ABG HCO3 30.7 mmol/L (22.0-26.0); ABG METHEMOGLOBIN 0.3 % (0.0-1.5); ABG OXYGEN CONTENT 14.6 mL/dL (15.0-23.0); ABG PCO2 41 mmHg (35-45); ABG PH 7.498 (7.35-7.450); SOURCE, BLOOD GAS ARTERIAL; TEMPERATURE, FAHRENHEIT, BG 99.1 FAHREN (96.0-98.6)
[2020-10-10 20:13] LABS: ABG OXYGEN SATURATION 81.5 % (95.0-98.0); PO2, ARTERIAL BG 42.8 mmHg (84.0-92.0)
[2020-10-10 20:14] LABS: O2 DEVICE,BLOOD GAS VENTILATOR (ROOM AIR); PEEP,BG 5 cm H2O; SITE, BLOOD GAS ARTERIAL LINE; VENT MODE, BG Press. Control Vent (ROOM AIR); VT, ABG 619 ml
[2020-10-10] MEDS: ATORVASTATIN CALCIUM 20 MG TABLET PO SCH (20:56)
[2020-10-10] MEDS: CEFEPIME HCL 2 GM in DEXTROSE 5%-WATER 50 ML IV SCH (20:59)
[2020-10-10] MEDS: MIDAZOLAM HCL 100 MG in DEXTROSE 5%-WATER 180 ML IV PRN (22:19)
[2020-10-11] VITALS: BP 108/46
[2020-10-11] MEDS: PROPOFOL 1000 MG/ISO-OSM 100 ML IV PRN ×5 (02:15→22:15)
[2020-10-11] MEDS: POTASSIUM CHL 10 MEQ/WATER 50 ML IV PRN ×3 (03:19→05:20)
[2020-10-11 04:00] VITALS: BP 170/56
[2020-10-11] MEDS: CEFEPIME HCL 2 GM in DEXTROSE 5%-WATER 50 ML IV SCH ×3 (04:00→19:37)
[2020-10-11] MEDS: FentaNYL CIT 1000MCG/D5%-WATER 100 ML IV PRN ×3 (04:21→16:34)
[2020-10-11 07:03] LABS: BASOPHILS % (AUTO) 0.7 % (0.0-2.0); EOSINOPHILS % (AUTO) 2.6 % (1.0-6.0); HEMATOCRIT 35.4 % (41-53); HEMOGLOBIN 11.9 g/dL (13.5-17.5); LYMPHOCYTES # (AUTO) 1.2 K/uL (1.0-4.8); LYMPHOCYTES % (AUTO) 8.8 % (22.0-44.0); MEAN CORPUSCULAR HEMOGLOBIN 29.8 pg (26.0-34.0); MEAN CORPUSCULAR HGB CONC 33.5 G/dL (31.0-37.0); MEAN CORPUSCULAR VOLUME 89 fL (80-100); MONOCYTES # (AUTO) 0.5 K/uL (0.1-1.0); MONOCYTES % (AUTO) 3.8 % (2.0-9.0); NEUTROPHILS # (AUTO) 11.6 K/uL (1.8-7.7); NEUTROPHILS % (AUTO) 84.1 % (40.0-70.0); PLATELET COUNT (AUTO) 202 K/uL (150-450); RED BLOOD CELL COUNT(AUTO) 3.99 MIL/uL (4.50-5.90); RED CELL DISTRIBUTION WIDTH 16.2 % (11.5-14.5)
[2020-10-11 07:04] LABS: ALANINE AMINOTRANSFERASE 42 U/L (12-78); ALBUMIN 1.7 g/dL (3.4-5.0); ALKALINE PHOSPHATASE 71 U/L (46-116); ANION GAP 5 mmol/L (8-16); ASPARTATE AMINOTRANSFERASE 37 U/L (15-37); BILIRUBIN,TOTAL 0.8 mg/dL (0.1-1.0); C-REACTIVE PROTEIN QUANT 17.61 mg/dL (0.00-0.30); CALCIUM, TOTAL 8.8 mg/dL (8.8-10.5); CARBON DIOXIDE 31 mmol/L (22-29); CHLORIDE 100 mmol/L (98-107); CREATININE 0.66 mg/dL (0.60-1.30); GLOMERULAR FILTR. RATE CALC > 60 mL/min (>60); GLUCOSE,RANDOM 106 mg/dL (70-110); POTASSIUM 3.7 mmol/L (3.5-5.1); SODIUM SERUM 136 mmol/L (136-145); TOTAL PROTEIN, SERUM 6.9 g/dL (6.4-8.2); UREA NITROGEN, BLOOD 15 mg/dL (7-18)
[2020-10-11 08:00] VITALS: BP 113/50
[2020-10-11] MEDS: ACETAMINOPHEN 325 MG TABLET PO PRN (08:00)
[2020-10-11] MEDS: DIAZEPAM 5 MG TABLET PO SCH ×3 (09:09→20:34)
[2020-10-11] MEDS: FAMOTIDINE 20 MG TABLET PO SCH ×2 (09:09→20:35)
[2020-10-11] MEDS: METOCLOPRAMIDE HCL 5 MG/ML 2 ML VIAL IVP SCH ×3 (09:09→20:33)
[2020-10-11] MEDS: ASCORBIC ACID 500 MG TABLET PO SCH ×2 (09:10→20:34)
[2020-10-11] MEDS: CHOLECALCIFEROL (VIT D3) 1,000 UNITS [25 MCG] TABLET PO SCH (09:10)
[2020-10-11] MEDS: DOCUSATE SODIUM 100 MG CAPSULE PO SCH ×2 (09:10→20:35)
[2020-10-11] MEDS: ZINC SULFATE 220 MG CAPSULE PO SCH ×2 (09:10→20:35)
[2020-10-11] MEDS: LACTULOSE 20 GM/30 ML SOLUTION UDCUP PO SCH ×2 (09:17→20:35)
[2020-10-11] MEDS: DEXAMETHASONE SOD PHOS 4 MG/ML VIAL IVP SCH (09:18)
[2020-10-11] MEDS: OxyCODONE HCL 5 MG IR TABLET PO SCH ×4 (09:18→20:34)
[2020-10-11] MEDS: HEPARIN SODIUM 25000 UNITS/D5W 250 ML IV PRN (11:43)
[2020-10-11 12:00] VITALS: BP 110/46
[2020-10-11] MEDS: AMINO ACIDS/PROTEIN HYDROLYS 30 ML TUBE PO SCH ×2 (12:13→17:25)
[2020-10-11] MEDS ORDERED: SODIUM CHLORIDE 0.9% 250 ML IV ONE (12:14)
[2020-10-11] MEDS: NOREPINEPHRINE 4 MG/D5%-WATER 250 ML IV PRN (13:52)
[2020-10-11] MEDS: LEVOFLOXACIN 750 MG/D5% WATER 150 ML IV SCH (14:35)
[2020-10-11] MEDS: MIDAZOLAM HCL 100 MG in DEXTROSE 5%-WATER 180 ML IV PRN (14:36)
[2020-10-11 16:00] VITALS: BP 127/61
[2020-10-11] MEDS: DAPTOMYCIN 500 MG in SODIUM CHLORIDE 0.9% 50 ML IV SCH (18:17)
[2020-10-11 20:00] VITALS: BP 128/62
[2020-10-11] MEDS: ATORVASTATIN CALCIUM 20 MG TABLET PO SCH (20:33)
[2020-10-11] MEDS ORDERED: SODIUM CHLORIDE 0.9% 500 ML IV ONE (22:58)
[2020-10-12] VITALS: BP 147/69
[2020-10-12] MEDS: FentaNYL CIT 1000MCG/D5%-WATER 100 ML IV PRN ×4 (00:23→20:38)
[2020-10-12] MEDS: PROPOFOL 1000 MG/ISO-OSM 100 ML IV PRN ×7 (03:29→22:52)
[2020-10-12] MEDS: CEFEPIME HCL 2 GM in DEXTROSE 5%-WATER 50 ML IV SCH ×2 (03:31→12:06)
[2020-10-12 04:00] VITALS: BP 107/93
[2020-10-12] MEDS: ACETAMINOPHEN 325 MG TABLET PO PRN (05:25)
[2020-10-12 06:20] LABS: BASOPHILS % (AUTO) 0.5 % (0.0-2.0); EOSINOPHILS % (AUTO) 2.4 % (1.0-6.0); HEMATOCRIT 35.4 % (41-53); HEMOGLOBIN 11.9 g/dL (13.5-17.5); LYMPHOCYTES # (AUTO) 1.1 K/uL (1.0-4.8); LYMPHOCYTES % (AUTO) 8.2 % (22.0-44.0); MEAN CORPUSCULAR HGB CONC 33.6 G/dL (31.0-37.0); MEAN CORPUSCULAR VOLUME 89 fL (80-100); MONOCYTES # (AUTO) 0.4 K/uL (0.1-1.0); MONOCYTES % (AUTO) 2.9 % (2.0-9.0); NEUTROPHILS # (AUTO) 11.5 K/uL (1.8-7.7); PLATELET COUNT (AUTO) 200 K/uL (150-450); RED BLOOD CELL COUNT(AUTO) 3.97 MIL/uL (4.50-5.90); RED CELL DISTRIBUTION WIDTH 16.4 % (11.5-14.5)
[2020-10-12 07:07] LABS: ALANINE AMINOTRANSFERASE 40 U/L (12-78); ALBUMIN 1.6 g/dL (3.4-5.0); ALKALINE PHOSPHATASE 74 U/L (46-116); ANION GAP 9 mmol/L (8-16); ASPARTATE AMINOTRANSFERASE 36 U/L (15-37); BILIRUBIN,TOTAL 0.9 mg/dL (0.1-1.0); CARBON DIOXIDE 29 mmol/L (22-29); CHLORIDE 101 mmol/L (98-107); CREATININE 0.55 mg/dL (0.60-1.30); GLOMERULAR FILTR. RATE CALC > 60 mL/min (>60); GLUCOSE,RANDOM 102 mg/dL (70-110); POTASSIUM 3.4 mmol/L (3.5-5.1); SODIUM SERUM 139 mmol/L (136-145); TOTAL PROTEIN, SERUM 7.2 g/dL (6.4-8.2); UREA NITROGEN, BLOOD 12 mg/dL (7-18)
[2020-10-12 08:00] VITALS: BP 109/48
[2020-10-12] MEDS: MIDAZOLAM HCL 100 MG in DEXTROSE 5%-WATER 180 ML IV PRN ×2 (08:12→22:07)
[2020-10-12] MEDS: HEPARIN SODIUM 25000 UNITS/D5W 250 ML IV PRN (08:12)
[2020-10-12] MEDS: ZINC SULFATE 220 MG CAPSULE PO SCH ×2 (09:07→20:35)
[2020-10-12] MEDS: LACTULOSE 20 GM/30 ML SOLUTION UDCUP PO SCH ×2 (09:07→20:34)
[2020-10-12] MEDS: DOCUSATE SODIUM 100 MG CAPSULE PO SCH ×2 (09:07→20:34)
[2020-10-12] MEDS: METOCLOPRAMIDE HCL 5 MG/ML 2 ML VIAL IVP SCH ×3 (09:08→20:36)
[2020-10-12] MEDS: FAMOTIDINE 20 MG TABLET PO SCH ×2 (09:08→20:35)
[2020-10-12] MEDS: ASCORBIC ACID 500 MG TABLET PO SCH ×2 (09:08→20:35)
[2020-10-12] MEDS: DEXAMETHASONE SOD PHOS 4 MG/ML VIAL IVP SCH (09:08)
[2020-10-12] MEDS: CHOLECALCIFEROL (VIT D3) 1,000 UNITS [25 MCG] TABLET PO SCH (09:08)
[2020-10-12] MEDS: DIAZEPAM 5 MG TABLET PO SCH ×3 (09:09→22:51)
[2020-10-12] MEDS: OxyCODONE HCL 5 MG IR TABLET PO SCH ×4 (09:09→20:36)
[2020-10-12] MEDS: POTASSIUM CHL 10 MEQ/WATER 50 ML IV PRN ×3 (09:09→14:08)
[2020-10-12] MEDS ORDERED: SODIUM CHLORIDE 0.9% 250 ML IV ONE ×2 (10:04→23:19)
[2020-10-12] MEDS: CISATRACURIUM BESYLATE 100 MG in DEXTROSE 5%-WATER 240 ML IV PRN ×3 (11:34→20:19)
[2020-10-12 12:00] VITALS: BP 121/49
[2020-10-12] MEDS: AMINO ACIDS/PROTEIN HYDROLYS 30 ML TUBE PO SCH (12:06)
[2020-10-12] MEDS: NOREPINEPHRINE 4 MG/D5%-WATER 250 ML IV PRN (13:45)
[2020-10-12] MEDS: LEVOFLOXACIN 750 MG/D5% WATER 150 ML IV SCH (14:07)
[2020-10-12] MEDS ORDERED: *CLINICAL-MEROPENEM DOSING CLINICAL ONE (15:00)
[2020-10-12] MEDS: MEROPENEM 1 GM in SODIUM CHLORIDE 0.9% 100 ML IV SCH ×2 (15:47→23:00)
[2020-10-12 16:00] VITALS: BP 116/57
[2020-10-12] MEDS: DAPTOMYCIN 500 MG in SODIUM CHLORIDE 0.9% 50 ML IV SCH (18:19)
[2020-10-12 20:00] VITALS: BP 162/72
[2020-10-12] MEDS: ATORVASTATIN CALCIUM 20 MG TABLET PO SCH (20:34)
[2020-10-12] MEDS ORDERED: SODIUM CHLORIDE 0.9% 500 ML IV ONE (23:19)
[2020-10-13] VITALS: BP 111/52
[2020-10-13] MEDS: CISATRACURIUM BESYLATE 100 MG in DEXTROSE 5%-WATER 240 ML IV PRN ×6 (00:18→22:09)
[2020-10-13] MEDS: PROPOFOL 1000 MG/ISO-OSM 100 ML IV PRN ×6 (02:53→23:50)
[2020-10-13] MEDS: HEPARIN SODIUM 25000 UNITS/D5W 250 ML IV PRN ×2 (02:53→23:51)
[2020-10-13] MEDS: FentaNYL CIT 1000MCG/D5%-WATER 100 ML IV PRN ×4 (03:16→17:26)
[2020-10-13 04:00] VITALS: BP 115/50
[2020-10-13] MEDS: MEROPENEM 1 GM in SODIUM CHLORIDE 0.9% 100 ML IV SCH ×3 (06:30→22:08)
[2020-10-13 07:04] LABS: BASOPHILS % (AUTO) 0.6 % (0.0-2.0); EOSINOPHILS % (AUTO) 3.3 % (1.0-6.0); HEMATOCRIT 34.4 % (41-53); HEMOGLOBIN 11.6 g/dL (13.5-17.5); LYMPHOCYTES # (AUTO) 1.5 K/uL (1.0-4.8); LYMPHOCYTES % (AUTO) 10.7 % (22.0-44.0); MEAN CORPUSCULAR HEMOGLOBIN 30.3 pg (26.0-34.0); MEAN CORPUSCULAR HGB CONC 33.8 G/dL (31.0-37.0); MEAN CORPUSCULAR VOLUME 90 fL (80-100); MONOCYTES # (AUTO) 0.6 K/uL (0.1-1.0); MONOCYTES % (AUTO) 3.9 % (2.0-9.0); NEUTROPHILS # (AUTO) 11.4 K/uL (1.8-7.7); NEUTROPHILS % (AUTO) 81.5 % (40.0-70.0); PLATELET COUNT (AUTO) 205 K/uL (150-450); RED BLOOD CELL COUNT(AUTO) 3.83 MIL/uL (4.50-5.90); RED CELL DISTRIBUTION WIDTH 16.3 % (11.5-14.5)
[2020-10-13 07:37] LABS: ALANINE AMINOTRANSFERASE 31 U/L (12-78); ALKALINE PHOSPHATASE 68 U/L (46-116); ANION GAP 5 mmol/L (8-16); ASPARTATE AMINOTRANSFERASE 32 U/L (15-37); BILIRUBIN,TOTAL 0.6 mg/dL (0.1-1.0); CALCIUM, TOTAL 9.4 mg/dL (8.8-10.5); CARBON DIOXIDE 31 mmol/L (22-29); CHLORIDE 98 mmol/L (98-107); CREATININE 0.58 mg/dL (0.60-1.30); GLOMERULAR FILTR. RATE CALC > 60 mL/min (>60); GLUCOSE,RANDOM 133 mg/dL (70-110); POTASSIUM 3.4 mmol/L (3.5-5.1); SODIUM SERUM 134 mmol/L (136-145); TOTAL PROTEIN, SERUM 7.2 g/dL (6.4-8.2); UREA NITROGEN, BLOOD 13 mg/dL (7-18)
[2020-10-13 08:00] VITALS: BP 111/53
[2020-10-13] MEDS: LACTULOSE 20 GM/30 ML SOLUTION UDCUP PO SCH ×2 (08:19→21:15)
[2020-10-13] MEDS: POTASSIUM CHL 10 MEQ/WATER 50 ML IV PRN ×3 (08:19→08:29)
[2020-10-13] MEDS: ZINC SULFATE 220 MG CAPSULE PO SCH ×2 (08:20→21:16)
[2020-10-13] MEDS: METOCLOPRAMIDE HCL 5 MG/ML 2 ML VIAL IVP SCH ×3 (08:20→21:16)
[2020-10-13] MEDS: ASCORBIC ACID 500 MG TABLET PO SCH ×2 (08:20→21:16)
[2020-10-13] MEDS: DEXAMETHASONE SOD PHOS 4 MG/ML VIAL IVP SCH (08:20)
[2020-10-13] MEDS: FAMOTIDINE 20 MG TABLET PO SCH ×2 (08:20→21:16)
[2020-10-13] MEDS: CHOLECALCIFEROL (VIT D3) 1,000 UNITS [25 MCG] TABLET PO SCH (08:21)
[2020-10-13] MEDS: DOCUSATE SODIUM 100 MG CAPSULE PO SCH ×2 (08:21→21:16)
[2020-10-13] MEDS: DIAZEPAM 5 MG TABLET PO SCH ×3 (08:21→21:16)
[2020-10-13] MEDS: AMINO ACIDS/PROTEIN HYDROLYS 30 ML TUBE PO SCH ×2 (08:28→21:17)
[2020-10-13 08:31] LABS: ALBUMIN 1.6 g/dL (3.4-5.0); C-REACTIVE PROTEIN QUANT 32.43 mg/dL (0.00-0.30)
[2020-10-13 08:31] LABS: ABG A-A DIFF O2 577.4 mmHg (10-20.0); ABG BASE EXCESS 5.9 mmol/L (-2.0-3.0); ABG CARBOXYHEMOGLOBIN 1.7 % (0.0-1.5); ABG HCO3 26.9 mmol/L (22.0-26.0); ABG METHEMOGLOBIN 0.3 % (0.0-1.5); ABG OXYGEN CONTENT 15.6 mL/dL (15.0-23.0); ABG OXYGEN SATURATION 86.4 % (95.0-98.0); ABG OXYHEMOGLOBIN 84.7 % (94.0-100.0); ABG TOTAL HEMOGLOBIN 13.1 G/dL (12.0-18.0); PO2, ARTERIAL BG 55.4 mmHg (84.0-92.0); SOURCE, BLOOD GAS ARTERIAL; TEMPERATURE, FAHRENHEIT, BG 94.6 FAHREN (96.0-98.6)
[2020-10-13 08:33] LABS: ABG PCO2 86 mmHg (35-45); ABG PH 7.208 (7.35-7.450)
[2020-10-13 08:34] LABS: O2 DEVICE,BLOOD GAS VENTILATOR (ROOM AIR); SITE, BLOOD GAS ART-LINE; VENT MODE, BG Press. Control Vent (ROOM AIR)
[2020-10-13 08:35] LABS: INSPIRATORY TIME, BG 0.9 SEC; PEEP,BG 10 cm H2O
[2020-10-13] MEDS: OxyCODONE HCL 5 MG IR TABLET PO SCH ×4 (09:22→21:16)
[2020-10-13 10:46] LABS: ABG A-A DIFF O2 592.8 mmHg (10-20.0); ABG BASE EXCESS 6.3 mmol/L (-2.0-3.0); ABG CARBOXYHEMOGLOBIN 1.9 % (0.0-1.5); ABG HCO3 27.7 mmol/L (22.0-26.0); ABG METHEMOGLOBIN 0.3 % (0.0-1.5); ABG OXYHEMOGLOBIN 80.9 % (94.0-100.0); ABG PH 7.291 (7.35-7.450); ABG TOTAL HEMOGLOBIN 14.1 G/dL (12.0-18.0); PO2, ARTERIAL BG 50.5 mmHg (84.0-92.0); TEMPERATURE, FAHRENHEIT, BG 98.6 FAHREN (96.0-98.6)
[2020-10-13 10:48] LABS: ABG OXYGEN SATURATION 82.7 % (95.0-98.0); ABG PCO2 70 mmHg (35-45)
[2020-10-13 10:49] LABS: O2 DEVICE,BLOOD GAS VENTILATOR (ROOM AIR); SITE, BLOOD GAS ALINE; SOURCE, BLOOD GAS ARTERIAL
[2020-10-13 10:50] LABS: PEEP,BG 10 cm H2O; VENT MODE, BG PC (ROOM AIR)
[2020-10-13 10:51] LABS: INSPIRATORY TIME, BG 0.9 SEC
[2020-10-13 12:00] VITALS: BP 90/58
[2020-10-13] MEDS: MIDAZOLAM HCL 100 MG in DEXTROSE 5%-WATER 180 ML IV PRN (12:05)
[2020-10-13] MEDS: LEVOFLOXACIN 750 MG/D5% WATER 150 ML IV SCH (13:16)
[2020-10-13] MEDS ORDERED: SODIUM CHLORIDE 0.9% 250 ML IV ONE (13:19)
[2020-10-13 15:42] LABS: ABG BASE EXCESS 6.2 mmol/L (-2.0-3.0); ABG CARBOXYHEMOGLOBIN 1.6 % (0.0-1.5); ABG HCO3 29.2 mmol/L (22.0-26.0); ABG METHEMOGLOBIN 0.3 % (0.0-1.5); ABG OXYHEMOGLOBIN 95.2 % (94.0-100.0); ABG PCO2 49 mmHg (35-45); ABG PH 7.417 (7.35-7.450); ABG TOTAL HEMOGLOBIN 11.9 G/dL (12.0-18.0); SOURCE, BLOOD GAS ARTERIAL; TEMPERATURE, FAHRENHEIT, BG 97.7 FAHREN (96.0-98.6)
[2020-10-13 15:44] LABS: SITE, BLOOD GAS ALINE
[2020-10-13 15:45] LABS: O2 DEVICE,BLOOD GAS VENTILATOR (ROOM AIR); PEEP,BG 10 cm H2O; VENT MODE, BG PC (ROOM AIR)
[2020-10-13 16:00] VITALS: BP 113/65
[2020-10-13] MEDS: DAPTOMYCIN 500 MG in SODIUM CHLORIDE 0.9% 50 ML IV SCH (16:52)
[2020-10-13 20:00] VITALS: BP 113/63
[2020-10-13] MEDS: NOREPINEPHRINE 4 MG/D5%-WATER 250 ML IV PRN (21:11)
[2020-10-13] MEDS: ATORVASTATIN CALCIUM 20 MG TABLET PO SCH (21:16)
[2020-10-13] MEDS ORDERED: SODIUM CHLORIDE 0.9% 100 ML ONE (22:30)
[2020-10-14] VITALS: BP 118/62
[2020-10-14] MEDS: CISATRACURIUM BESYLATE 100 MG in DEXTROSE 5%-WATER 240 ML IV PRN ×5 (02:00→20:21)
[2020-10-14] MEDS: FentaNYL CIT 1000MCG/D5%-WATER 100 ML IV PRN ×4 (02:00→20:21)
[2020-10-14 04:00] VITALS: BP 113/54
[2020-10-14] MEDS: PROPOFOL 1000 MG/ISO-OSM 100 ML IV PRN ×6 (04:19→20:21)
[2020-10-14] MEDS: MIDAZOLAM HCL 100 MG in DEXTROSE 5%-WATER 180 ML IV PRN ×2 (04:21→21:42)
[2020-10-14] MEDS ORDERED: SODIUM CHLORIDE 0.9% 250 ML IV ONE (05:58)
[2020-10-14] MEDS: MEROPENEM 1 GM in SODIUM CHLORIDE 0.9% 100 ML IV SCH ×3 (06:16→23:28)
[2020-10-14 06:42] LABS: HEMOGLOBIN 11.1 g/dL (13.5-17.5); MEAN CORPUSCULAR HEMOGLOBIN 30.2 pg (26.0-34.0); MEAN CORPUSCULAR HGB CONC 33.5 G/dL (31.0-37.0); MEAN CORPUSCULAR VOLUME 90 fL (80-100); PLATELET COUNT (AUTO) 231 K/uL (150-450); RED BLOOD CELL COUNT(AUTO) 3.67 MIL/uL (4.50-5.90); RED CELL DISTRIBUTION WIDTH 16.7 % (11.5-14.5)
[2020-10-14 07:05] LABS: ALANINE AMINOTRANSFERASE 31 U/L (12-78); ALBUMIN 1.6 g/dL (3.4-5.0); ALKALINE PHOSPHATASE 68 U/L (46-116); ANION GAP 1 mmol/L (8-16); ASPARTATE AMINOTRANSFERASE 23 U/L (15-37); BILIRUBIN,TOTAL 0.5 mg/dL (0.1-1.0); CALCIUM, TOTAL 9.5 mg/dL (8.8-10.5); CARBON DIOXIDE 35 mmol/L (22-29); CHLORIDE 102 mmol/L (98-107); CREATININE 0.68 mg/dL (0.60-1.30); GLOMERULAR FILTR. RATE CALC > 60 mL/min (>60); GLUCOSE,RANDOM 152 mg/dL (70-110); SODIUM SERUM 138 mmol/L (136-145); TOTAL PROTEIN, SERUM 7.2 g/dL (6.4-8.2); UREA NITROGEN, BLOOD 12 mg/dL (7-18)
[2020-10-14 08:00] VITALS: BP 116/62
[2020-10-14 09:01] LABS: BAND NEUTROPHILS % (MANUAL) 9 % (0-5); LYMPHOCYTES % (MANUAL) 10 % (22-44); MONOCYTES % (MANUAL) 5 % (2-9); SEGMENTED NEUTROPHILS % 76 % (40-70)
[2020-10-14] MEDS: DOCUSATE SODIUM 100 MG CAPSULE PO SCH ×2 (09:06→20:20)
[2020-10-14] MEDS: CHOLECALCIFEROL (VIT D3) 1,000 UNITS [25 MCG] TABLET PO SCH (09:06)
[2020-10-14] MEDS: ZINC SULFATE 220 MG CAPSULE PO SCH ×2 (09:06→20:20)
[2020-10-14] MEDS: OxyCODONE HCL 5 MG IR TABLET PO SCH ×4 (09:06→23:30)
[2020-10-14] MEDS: DIAZEPAM 5 MG TABLET PO SCH ×3 (09:06→20:20)
[2020-10-14] MEDS: FAMOTIDINE 20 MG TABLET PO SCH ×2 (09:06→20:20)
[2020-10-14] MEDS: ASCORBIC ACID 500 MG TABLET PO SCH ×2 (09:06→20:20)
[2020-10-14] MEDS: METOCLOPRAMIDE HCL 5 MG/ML 2 ML VIAL IVP SCH ×3 (09:07→20:20)
[2020-10-14] MEDS: DEXAMETHASONE SOD PHOS 4 MG/ML VIAL IVP SCH (09:07)
[2020-10-14] MEDS: LACTULOSE 20 GM/30 ML SOLUTION UDCUP PO SCH ×2 (09:08→20:20)
[2020-10-14 11:13] LABS: C-REACTIVE PROTEIN QUANT 23.95 mg/dL (0.00-0.30)
[2020-10-14 12:00] VITALS: BP 110/56
[2020-10-14] MEDS: LEVOFLOXACIN 750 MG/D5% WATER 150 ML IV SCH (12:56)
[2020-10-14] MEDS: AMINO ACIDS/PROTEIN HYDROLYS 30 ML TUBE PO SCH ×2 (12:56→16:59)
[2020-10-14 16:00] VITALS: BP 117/60
[2020-10-14] MEDS: DAPTOMYCIN 500 MG in SODIUM CHLORIDE 0.9% 50 ML IV SCH (17:58)
[2020-10-14 20:00] VITALS: BP 109/65
[2020-10-14] MEDS: ATORVASTATIN CALCIUM 20 MG TABLET PO SCH (20:20)
[2020-10-14] MEDS: HEPARIN SODIUM 25000 UNITS/D5W 250 ML IV PRN (21:42)
[2020-10-15] VITALS: BP 101/57
[2020-10-15] MEDS: FentaNYL CIT 1000MCG/D5%-WATER 100 ML IV PRN ×4 (01:16→15:54)
[2020-10-15] MEDS: CISATRACURIUM BESYLATE 100 MG in DEXTROSE 5%-WATER 240 ML IV PRN ×5 (01:17→19:35)
[2020-10-15] MEDS: PROPOFOL 1000 MG/ISO-OSM 100 ML IV PRN ×7 (01:18→22:56)
[2020-10-15 04:00] VITALS: BP 128/59
[2020-10-15] MEDS: MEROPENEM 1 GM in SODIUM CHLORIDE 0.9% 100 ML IV SCH ×3 (06:23→22:57)
[2020-10-15 06:44] LABS: HEMOGLOBIN 11.3 g/dL (13.5-17.5); MEAN CORPUSCULAR HEMOGLOBIN 29.5 pg (26.0-34.0); MEAN CORPUSCULAR HGB CONC 32.3 G/dL (31.0-37.0); MEAN CORPUSCULAR VOLUME 91 fL (80-100); PLATELET COUNT (AUTO) 260 K/uL (150-450); RED BLOOD CELL COUNT(AUTO) 3.84 MIL/uL (4.50-5.90); RED CELL DISTRIBUTION WIDTH 16.3 % (11.5-14.5)
[2020-10-15 07:25] LABS: BAND NEUTROPHILS % (MANUAL) 8 % (0-5); EOSINOPHILS % (MANUAL) 2 % (1-6); LYMPHOCYTES % (MANUAL) 12 % (22-44); MONOCYTES % (MANUAL) 6 % (2-9); SEGMENTED NEUTROPHILS % 72 % (40-70)
[2020-10-15 07:36] LABS: ALANINE AMINOTRANSFERASE 28 U/L (12-78); ALBUMIN 1.6 g/dL (3.4-5.0); ALKALINE PHOSPHATASE 67 U/L (46-116); ANION GAP 4 mmol/L (8-16); ASPARTATE AMINOTRANSFERASE 28 U/L (15-37); BILIRUBIN,TOTAL 0.4 mg/dL (0.1-1.0); CALCIUM, TOTAL 9.3 mg/dL (8.8-10.5); CARBON DIOXIDE 35 mmol/L (22-29); CHLORIDE 101 mmol/L (98-107); CREATININE 0.64 mg/dL (0.60-1.30); GLOMERULAR FILTR. RATE CALC > 60 mL/min (>60); GLUCOSE,RANDOM 115 mg/dL (70-110); POTASSIUM 3.5 mmol/L (3.5-5.1); SODIUM SERUM 140 mmol/L (136-145); TOTAL PROTEIN, SERUM 7.1 g/dL (6.4-8.2); UREA NITROGEN, BLOOD 9 mg/dL (7-18)
[2020-10-15] MEDS: AMINO ACIDS/PROTEIN HYDROLYS 30 ML TUBE PO SCH ×2 (07:45→12:48)
[2020-10-15] MEDS: DEXAMETHASONE SOD PHOS 4 MG/ML VIAL IVP SCH (07:46)
[2020-10-15] MEDS: LACTULOSE 20 GM/30 ML SOLUTION UDCUP PO SCH ×2 (07:46→21:02)
[2020-10-15] MEDS: DOCUSATE SODIUM 100 MG CAPSULE PO SCH ×2 (07:47→21:02)
[2020-10-15] MEDS: ASCORBIC ACID 500 MG TABLET PO SCH ×2 (07:47→21:02)
[2020-10-15] MEDS: METOCLOPRAMIDE HCL 5 MG/ML 2 ML VIAL IVP SCH ×3 (07:47→21:01)
[2020-10-15] MEDS: FAMOTIDINE 20 MG TABLET PO SCH ×2 (07:47→21:02)
[2020-10-15] MEDS: CHOLECALCIFEROL (VIT D3) 1,000 UNITS [25 MCG] TABLET PO SCH (07:47)
[2020-10-15] MEDS: OxyCODONE HCL 5 MG IR TABLET PO SCH ×4 (07:47→21:02)
[2020-10-15] MEDS: DIAZEPAM 5 MG TABLET PO SCH ×3 (07:47→21:02)
[2020-10-15] MEDS: ZINC SULFATE 220 MG CAPSULE PO SCH ×2 (07:47→21:02)
[2020-10-15 08:00] VITALS: BP 111/54
[2020-10-15 08:31] LABS: C-REACTIVE PROTEIN QUANT 13.87 mg/dL (0.00-0.30); CREATINE KINASE, TOTAL ONLY 108 U/L (39-308)
[2020-10-15 12:00] VITALS: BP 123/60
[2020-10-15] MEDS: MIDAZOLAM HCL 100 MG in DEXTROSE 5%-WATER 180 ML IV PRN (15:55)
[2020-10-15 16:00] VITALS: BP 136/65
[2020-10-15] MEDS: DAPTOMYCIN 500 MG in SODIUM CHLORIDE 0.9% 50 ML IV SCH (18:29)
[2020-10-15 20:00] VITALS: BP 102/61
[2020-10-15] MEDS: ATORVASTATIN CALCIUM 20 MG TABLET PO SCH (21:02)
[2020-10-15] MEDS: HEPARIN SODIUM 25000 UNITS/D5W 250 ML IV PRN (22:58)
[2020-10-16] VITALS: BP 97/51
[2020-10-16] MEDS: FentaNYL CIT 1000MCG/D5%-WATER 100 ML IV PRN ×4 (00:42→17:31)
[2020-10-16] MEDS: CISATRACURIUM BESYLATE 100 MG in DEXTROSE 5%-WATER 240 ML IV PRN ×4 (00:43→16:17)
[2020-10-16 04:00] VITALS: BP 102/54
[2020-10-16 05:54] LABS: HEMATOCRIT 34.9 % (41-53); HEMOGLOBIN 11.6 g/dL (13.5-17.5); MEAN CORPUSCULAR HEMOGLOBIN 29.9 pg (26.0-34.0); MEAN CORPUSCULAR HGB CONC 33.3 G/dL (31.0-37.0); MEAN CORPUSCULAR VOLUME 90 fL (80-100); PLATELET COUNT (AUTO) 288 K/uL (150-450); RED BLOOD CELL COUNT(AUTO) 3.88 MIL/uL (4.50-5.90); RED CELL DISTRIBUTION WIDTH 16.3 % (11.5-14.5)
[2020-10-16] MEDS ORDERED: SODIUM CHLORIDE 0.9% 250 ML IV ONE (06:08)
[2020-10-16] MEDS: PROPOFOL 1000 MG/ISO-OSM 100 ML IV PRN ×5 (06:10→22:18)
[2020-10-16] MEDS: MEROPENEM 1 GM in SODIUM CHLORIDE 0.9% 100 ML IV SCH ×3 (06:11→22:33)
[2020-10-16 06:33] LABS: ALANINE AMINOTRANSFERASE 30 U/L (12-78); ALBUMIN 1.7 g/dL (3.4-5.0); ALKALINE PHOSPHATASE 67 U/L (46-116); ANION GAP -1 mmol/L (8-16); ASPARTATE AMINOTRANSFERASE 29 U/L (15-37); BILIRUBIN,TOTAL 0.4 mg/dL (0.1-1.0); C-REACTIVE PROTEIN QUANT 9.34 mg/dL (0.00-0.30); CALCIUM, TOTAL 9.3 mg/dL (8.8-10.5); CARBON DIOXIDE 37 mmol/L (22-29); CHLORIDE 100 mmol/L (98-107); GLOMERULAR FILTR. RATE CALC > 60 mL/min (>60); GLUCOSE,RANDOM 105 mg/dL (70-110); POTASSIUM 3.6 mmol/L (3.5-5.1); SODIUM SERUM 136 mmol/L (136-145); UREA NITROGEN, BLOOD 7 mg/dL (7-18)
[2020-10-16 07:34] LABS: BAND NEUTROPHILS % (MANUAL) 7 % (0-5); EOSINOPHILS % (MANUAL) 3 % (1-6); LYMPHOCYTES % (MANUAL) 15 % (22-44); METAMYELOCYTES % 1 % (0-0); MONOCYTES % (MANUAL) 6 % (2-9); SEGMENTED NEUTROPHILS % 68 % (40-70)
[2020-10-16 08:00] VITALS: BP 93/53
[2020-10-16] MEDS: ZINC SULFATE 220 MG CAPSULE PO SCH ×2 (08:49→20:51)
[2020-10-16] MEDS: DIAZEPAM 5 MG TABLET PO SCH (08:49)
[2020-10-16] MEDS: AMINO ACIDS/PROTEIN HYDROLYS 30 ML TUBE PO SCH ×2 (08:49→12:41)
[2020-10-16] MEDS: DEXAMETHASONE SOD PHOS 4 MG/ML VIAL IVP SCH (08:49)
[2020-10-16] MEDS: FAMOTIDINE 20 MG TABLET PO SCH ×2 (08:49→20:50)
[2020-10-16] MEDS: CHOLECALCIFEROL (VIT D3) 1,000 UNITS [25 MCG] TABLET PO SCH (08:49)
[2020-10-16] MEDS: DOCUSATE SODIUM 100 MG CAPSULE PO SCH ×2 (08:50→20:50)
[2020-10-16] MEDS: METOCLOPRAMIDE HCL 5 MG/ML 2 ML VIAL IVP SCH ×3 (08:50→20:50)
[2020-10-16] MEDS: ASCORBIC ACID 500 MG TABLET PO SCH ×2 (08:50→20:50)
[2020-10-16] MEDS: LACTULOSE 20 GM/30 ML SOLUTION UDCUP PO SCH ×2 (08:50→20:50)
[2020-10-16] MEDS: OxyCODONE HCL 5 MG IR TABLET PO SCH ×4 (08:50→20:51)
[2020-10-16] MEDS: MIDAZOLAM HCL 100 MG in DEXTROSE 5%-WATER 180 ML IV PRN (08:52)
[2020-10-16 12:00] VITALS: BP 171/82
[2020-10-16] MEDS: ALBUMIN HUMAN 25%-12.5GM/50ML 50 ML IV SCH ×2 (13:46→20:52)
[2020-10-16 15:44] LABS: APPEARANCE,URINE CLEAR (CLEAR); BILIRUBIN,URINE NEGATIVE (NEGATIVE); GLUCOSE, URINE (UA) NEGATIVE (NEGATIVE); KETONES,URINE NEGATIVE (NEGATIVE); LEUKOCYTE ESTERASE ,URINE NEGATIVE (NEGATIVE); NITRATE,URINE NEGATIVE (NEGATIVE); OCCULT BLOOD,URINE NEGATIVE (NEGATIVE); PROTEIN,URINE TRACE (NEGATIVE)
[2020-10-16 16:00] VITALS: BP 117/60
[2020-10-16 16:02] LABS: RBC,URINE 0-2 /HPF (0-2); WBC,URINE 0-2 /HPF (0-5)
[2020-10-16 16:03] LABS: BACTERIA,URINE None Seen /HPF (None Seen); SQUAMOUS EPITHELIAL CELL,UR Rare /LPF (None Seen)
[2020-10-16] MEDS: HEPARIN SODIUM 25000 UNITS/D5W 250 ML IV PRN (16:18)
[2020-10-16] MEDS: DAPTOMYCIN 500 MG in SODIUM CHLORIDE 0.9% 50 ML IV SCH (17:14)
[2020-10-16] MEDS: NOREPINEPHRINE 4 MG/D5%-WATER 250 ML IV PRN (17:32)
[2020-10-16 20:00] VITALS: BP 105/54
[2020-10-16] MEDS: ATORVASTATIN CALCIUM 20 MG TABLET PO SCH (20:50)
[2020-10-17] VITALS: BP 97/51
[2020-10-17] MEDS: CISATRACURIUM BESYLATE 100 MG in DEXTROSE 5%-WATER 240 ML IV PRN ×3 (00:46→23:46)
[2020-10-17] MEDS: PROPOFOL 1000 MG/ISO-OSM 100 ML IV PRN ×7 (02:01→23:53)
[2020-10-17] MEDS: MIDAZOLAM HCL 100 MG in DEXTROSE 5%-WATER 180 ML IV PRN ×2 (02:06→16:20)
[2020-10-17 04:00] VITALS: BP 138/61
[2020-10-17] MEDS: FentaNYL CIT 1000MCG/D5%-WATER 100 ML IV PRN ×4 (04:08→21:37)
[2020-10-17] MEDS: ALBUMIN HUMAN 25%-12.5GM/50ML 50 ML IV SCH ×3 (04:09→20:33)
[2020-10-17] MEDS ORDERED: SODIUM CHLORIDE 0.9% 500 ML IV ONE ×2 (04:43→23:21)
[2020-10-17] MEDS: MEROPENEM 1 GM in SODIUM CHLORIDE 0.9% 100 ML IV SCH ×3 (06:37→23:20)
[2020-10-17 07:02] LABS: ANION GAP -1 mmol/L (8-16); BASOPHILS % (AUTO) 0.6 % (0.0-2.0); CALCIUM, TOTAL 9.3 mg/dL (8.8-10.5); CHLORIDE 102 mmol/L (98-107); CREATININE 0.56 mg/dL (0.60-1.30); EOSINOPHILS % (AUTO) 3.8 % (1.0-6.0); GLOMERULAR FILTR. RATE CALC > 60 mL/min (>60); GLUCOSE,RANDOM 95 mg/dL (70-110); HEMATOCRIT 33.1 % (41-53); LYMPHOCYTES % (AUTO) 16.5 % (22.0-44.0); MEAN CORPUSCULAR HEMOGLOBIN 29.8 pg (26.0-34.0); MEAN CORPUSCULAR HGB CONC 33.1 G/dL (31.0-37.0); MEAN CORPUSCULAR VOLUME 90 fL (80-100); MONOCYTES # (AUTO) 0.9 K/uL (0.1-1.0); MONOCYTES % (AUTO) 7.7 % (2.0-9.0); NEUTROPHILS # (AUTO) 8.6 K/uL (1.8-7.7); NEUTROPHILS % (AUTO) 71.4 % (40.0-70.0); PLATELET COUNT (AUTO) 308 K/uL (150-450); POTASSIUM 3.7 mmol/L (3.5-5.1); RED BLOOD CELL COUNT(AUTO) 3.67 MIL/uL (4.50-5.90); RED CELL DISTRIBUTION WIDTH 16.1 % (11.5-14.5); SODIUM SERUM 143 mmol/L (136-145); UREA NITROGEN, BLOOD 7 mg/dL (7-18)
[2020-10-17 07:03] LABS: D-DIMER 1.01 mg/L FEU (0.00-0.50)
[2020-10-17 07:10] LABS: CARBON DIOXIDE 42 mmol/L (22-29)
[2020-10-17 08:00] VITALS: BP 118/61
[2020-10-17] MEDS: CHOLECALCIFEROL (VIT D3) 1,000 UNITS [25 MCG] TABLET PO SCH (09:54)
[2020-10-17] MEDS: FAMOTIDINE 20 MG TABLET PO SCH ×2 (09:54→20:34)
[2020-10-17] MEDS: ASCORBIC ACID 500 MG TABLET PO SCH ×2 (09:54→20:34)
[2020-10-17] MEDS: OxyCODONE HCL 5 MG IR TABLET PO SCH ×4 (09:54→20:34)
[2020-10-17] MEDS: DOCUSATE SODIUM 100 MG CAPSULE PO SCH ×2 (09:54→20:34)
[2020-10-17] MEDS: DEXAMETHASONE SOD PHOS 4 MG/ML VIAL IVP SCH (09:55)
[2020-10-17] MEDS: LACTULOSE 20 GM/30 ML SOLUTION UDCUP PO SCH ×2 (09:55→20:33)
[2020-10-17] MEDS: ZINC SULFATE 220 MG CAPSULE PO SCH ×2 (09:55→20:34)
[2020-10-17] MEDS: METOCLOPRAMIDE HCL 5 MG/ML 2 ML VIAL IVP SCH ×3 (09:55→20:33)
[2020-10-17] MEDS: AMINO ACIDS/PROTEIN HYDROLYS 30 ML TUBE PO SCH ×2 (09:55→13:00)
[2020-10-17 12:00] VITALS: BP 124/64
[2020-10-17 12:28] LABS: ABG A-A DIFF O2 504.5 mmHg (10-20.0); ABG BASE EXCESS 16.4 mmol/L (-2.0-3.0); ABG CARBOXYHEMOGLOBIN 1.1 % (0.0-1.5); ABG HCO3 37.4 mmol/L (22.0-26.0); ABG METHEMOGLOBIN 0.3 % (0.0-1.5); ABG OXYGEN CONTENT 15.3 mL/dL (15.0-23.0); ABG OXYGEN SATURATION 94.7 % (95.0-98.0); ABG OXYHEMOGLOBIN 93.4 % (94.0-100.0); ABG PH 7.383 (7.35-7.450); ABG TOTAL HEMOGLOBIN 11.6 G/dL (12.0-18.0); PO2, ARTERIAL BG 63.7 mmHg (84.0-92.0); SOURCE, BLOOD GAS ARTERIAL; TEMPERATURE, FAHRENHEIT, BG 98.7 FAHREN (96.0-98.6)
[2020-10-17 12:29] LABS: ABG PCO2 71 mmHg (35-45); INSPIRATORY TIME, BG 0.9 SEC; O2 DEVICE,BLOOD GAS VENTILATOR (ROOM AIR); PEEP,BG 10 cm H2O; SITE, BLOOD GAS ARTERIAL LINE; SPONTANEOUS VT, BG 442 ml; VENT MODE, BG Press. Control Vent (ROOM AIR)
[2020-10-17] MEDS: HEPARIN SODIUM 25000 UNITS/D5W 250 ML IV PRN (13:00)
[2020-10-17 16:00] VITALS: BP 109/8
[2020-10-17] MEDS: NOREPINEPHRINE 4 MG/D5%-WATER 250 ML IV PRN (17:13)
[2020-10-17] MEDS: DAPTOMYCIN 500 MG in SODIUM CHLORIDE 0.9% 50 ML IV SCH (17:13)
[2020-10-17 20:00] VITALS: BP 107/55
[2020-10-17] MEDS: ATORVASTATIN CALCIUM 20 MG TABLET PO SCH (20:34)
[2020-10-17] MEDS ORDERED: SODIUM CHLORIDE 0.9% 250 ML IV ONE (23:21)
[2020-10-18] VITALS: BP 141/88
[2020-10-18] MEDS: PROPOFOL 1000 MG/ISO-OSM 100 ML IV PRN ×5 (03:34→18:07)
[2020-10-18] MEDS: ALBUMIN HUMAN 25%-12.5GM/50ML 50 ML IV SCH ×3 (05:00→22:32)
[2020-10-18 05:47] LABS: BASOPHILS % (AUTO) 0.6 % (0.0-2.0); EOSINOPHILS % (AUTO) 4.2 % (1.0-6.0); HEMOGLOBIN 9.7 g/dL (13.5-17.5); MEAN CORPUSCULAR HEMOGLOBIN 29.5 pg (26.0-34.0); MEAN CORPUSCULAR HGB CONC 33.3 G/dL (31.0-37.0); MEAN CORPUSCULAR VOLUME 89 fL (80-100); MONOCYTES # (AUTO) 0.8 K/uL (0.1-1.0); MONOCYTES % (AUTO) 6.1 % (2.0-9.0); NEUTROPHILS # (AUTO) 9.7 K/uL (1.8-7.7); NEUTROPHILS % (AUTO) 74.1 % (40.0-70.0); PLATELET COUNT (AUTO) 280 K/uL (150-450); RED BLOOD CELL COUNT(AUTO) 3.27 MIL/uL (4.50-5.90)
[2020-10-18 06:02] LABS: ALANINE AMINOTRANSFERASE 27 U/L (12-78); ALBUMIN 2.3 g/dL (3.4-5.0); ALKALINE PHOSPHATASE 57 U/L (46-116); ANION GAP 1 mmol/L (8-16); ASPARTATE AMINOTRANSFERASE 30 U/L (15-37); BILIRUBIN,TOTAL 0.7 mg/dL (0.1-1.0); C-REACTIVE PROTEIN QUANT 6.39 mg/dL (0.00-0.30); CALCIUM, TOTAL 9.1 mg/dL (8.8-10.5); CARBON DIOXIDE 39 mmol/L (22-29); CHLORIDE 99 mmol/L (98-107); CREATININE 0.65 mg/dL (0.60-1.30); GLOMERULAR FILTR. RATE CALC > 60 mL/min (>60); GLUCOSE,RANDOM 91 mg/dL (70-110); POTASSIUM 3.1 mmol/L (3.5-5.1); SODIUM SERUM 139 mmol/L (136-145); TOTAL PROTEIN, SERUM 6.5 g/dL (6.4-8.2); UREA NITROGEN, BLOOD 12 mg/dL (7-18)
[2020-10-18] MEDS: MEROPENEM 1 GM in SODIUM CHLORIDE 0.9% 100 ML IV SCH ×3 (07:03→22:40)
[2020-10-18 08:00] VITALS: BP 136/59
[2020-10-18] MEDS: CISATRACURIUM BESYLATE 100 MG in DEXTROSE 5%-WATER 240 ML IV PRN ×2 (09:36→17:27)
[2020-10-18] MEDS: FAMOTIDINE 20 MG TABLET PO SCH ×2 (09:38→22:32)
[2020-10-18] MEDS: ACETAMINOPHEN 325 MG TABLET PO PRN ×2 (09:38→22:33)
[2020-10-18] MEDS: DOCUSATE SODIUM 100 MG CAPSULE PO SCH ×2 (09:39→22:33)
[2020-10-18] MEDS: CHOLECALCIFEROL (VIT D3) 1,000 UNITS [25 MCG] TABLET PO SCH (09:39)
[2020-10-18] MEDS: ZINC SULFATE 220 MG CAPSULE PO SCH ×2 (09:39→22:36)
[2020-10-18] MEDS: OxyCODONE HCL 5 MG IR TABLET PO SCH ×4 (09:39→22:32)
[2020-10-18] MEDS: ASCORBIC ACID 500 MG TABLET PO SCH ×2 (09:39→22:36)
[2020-10-18] MEDS: DEXAMETHASONE SOD PHOS 4 MG/ML VIAL IVP SCH (09:40)
[2020-10-18] MEDS: AMINO ACIDS/PROTEIN HYDROLYS 30 ML TUBE PO SCH ×2 (09:40→12:50)
[2020-10-18] MEDS: METOCLOPRAMIDE HCL 5 MG/ML 2 ML VIAL IVP SCH ×3 (09:41→22:32)
[2020-10-18] MEDS: LACTULOSE 20 GM/30 ML SOLUTION UDCUP PO SCH ×2 (09:41→22:36)
[2020-10-18] MEDS: HEPARIN SODIUM,PORCINE 5,000 UNITS/ML VIAL IVP PRN (10:37)
[2020-10-18] MEDS: MIDAZOLAM HCL 100 MG in DEXTROSE 5%-WATER 180 ML IV PRN (10:44)
[2020-10-18 12:00] VITALS: BP 106/51
[2020-10-18] MEDS: FentaNYL CIT 1000MCG/D5%-WATER 100 ML IV PRN ×2 (12:49→18:08)
[2020-10-18] MEDS ORDERED: SODIUM CHLORIDE 0.9% 1,000 ML ONE (14:41)
[2020-10-18] MEDS ORDERED: SODIUM CHLORIDE 0.9% 2,000 ML ONE (15:38)
[2020-10-18 16:00] VITALS: BP 112/57
[2020-10-18] MEDS: DAPTOMYCIN 500 MG in SODIUM CHLORIDE 0.9% 50 ML IV SCH (18:07)
[2020-10-18 20:00] VITALS: BP 128/58
[2020-10-18] MEDS: ATORVASTATIN CALCIUM 20 MG TABLET PO SCH (22:33)
[2020-10-19] VITALS: BP 110/48
[2020-10-19] MEDS: PROPOFOL 1000 MG/ISO-OSM 100 ML IV PRN ×6 (01:10→20:05)
[2020-10-19] MEDS ORDERED: SODIUM CHLORIDE 0.9% 250 ML IV ONE ×3 (02:05→23:04)
[2020-10-19] MEDS ORDERED: SODIUM CHLORIDE 0.9% 500 ML IV ONE ×2 (02:05→23:04)
[2020-10-19] MEDS: CISATRACURIUM BESYLATE 100 MG in DEXTROSE 5%-WATER 240 ML IV PRN ×4 (02:19→23:49)
[2020-10-19] MEDS: MIDAZOLAM HCL 100 MG in DEXTROSE 5%-WATER 180 ML IV PRN ×2 (03:49→19:38)
[2020-10-19 04:00] VITALS: BP 137/62
[2020-10-19] MEDS: FentaNYL CIT 1000MCG/D5%-WATER 100 ML IV PRN ×4 (04:00→15:38)
[2020-10-19] MEDS: ALBUMIN HUMAN 25%-12.5GM/50ML 50 ML IV SCH ×3 (05:00→20:54)
[2020-10-19] MEDS: MEROPENEM 1 GM in SODIUM CHLORIDE 0.9% 100 ML IV SCH ×3 (06:00→23:48)
[2020-10-19 06:35] LABS: BASOPHILS % (AUTO) 0.7 % (0.0-2.0); HEMATOCRIT 30.6 % (41-53); HEMOGLOBIN 10.3 g/dL (13.5-17.5); MEAN CORPUSCULAR HEMOGLOBIN 29.8 pg (26.0-34.0); MEAN CORPUSCULAR HGB CONC 33.6 G/dL (31.0-37.0); MEAN CORPUSCULAR VOLUME 89 fL (80-100); MONOCYTES # (AUTO) 0.7 K/uL (0.1-1.0); MONOCYTES % (AUTO) 5.3 % (2.0-9.0); NEUTROPHILS # (AUTO) 10.3 K/uL (1.8-7.7); PLATELET COUNT (AUTO) 306 K/uL (150-450); RED BLOOD CELL COUNT(AUTO) 3.45 MIL/uL (4.50-5.90); RED CELL DISTRIBUTION WIDTH 16.2 % (11.5-14.5)
[2020-10-19 08:00] VITALS: BP 176/72
[2020-10-19] MEDS: AMINO ACIDS/PROTEIN HYDROLYS 30 ML TUBE PO SCH ×2 (09:25→12:06)
[2020-10-19] MEDS: METOCLOPRAMIDE HCL 5 MG/ML 2 ML VIAL IVP SCH ×3 (09:26→20:55)
[2020-10-19] MEDS: LACTULOSE 20 GM/30 ML SOLUTION UDCUP PO SCH ×2 (09:26→20:55)
[2020-10-19] MEDS: FAMOTIDINE 20 MG TABLET PO SCH ×2 (09:27→20:55)
[2020-10-19] MEDS: OxyCODONE HCL 5 MG IR TABLET PO SCH ×4 (09:27→20:55)
[2020-10-19] MEDS: ZINC SULFATE 220 MG CAPSULE PO SCH ×2 (09:27→20:55)
[2020-10-19] MEDS: CHOLECALCIFEROL (VIT D3) 1,000 UNITS [25 MCG] TABLET PO SCH (09:27)
[2020-10-19] MEDS: DEXAMETHASONE SOD PHOS 4 MG/ML VIAL IVP SCH (09:27)
[2020-10-19] MEDS: ASCORBIC ACID 500 MG TABLET PO SCH ×2 (09:27→20:55)
[2020-10-19] MEDS: DOCUSATE SODIUM 100 MG CAPSULE PO SCH ×2 (09:27→20:55)
[2020-10-19 11:44] LABS: ANION GAP 8 mmol/L (8-16); CALCIUM, TOTAL 9.2 mg/dL (8.8-10.5); CARBON DIOXIDE 36 mmol/L (22-29); CHLORIDE 103 mmol/L (98-107); CREATININE 0.49 mg/dL (0.60-1.30); GLOMERULAR FILTR. RATE CALC > 60 mL/min (>60); GLUCOSE,RANDOM 80 mg/dL (70-110); POTASSIUM 3.2 mmol/L (3.5-5.1); SODIUM SERUM 147 mmol/L (136-145); UREA NITROGEN, BLOOD 12 mg/dL (7-18)
[2020-10-19 12:00] VITALS: BP 122/59
[2020-10-19] MEDS: POTASSIUM CHL 10 MEQ/WATER 50 ML IV PRN ×3 (12:17→13:25)
[2020-10-19] MEDS ORDERED: DEXTROSE 5%-WATER 500 ML IV ONE (12:30)
[2020-10-19] MEDS: HEPARIN SODIUM 25000 UNITS/D5W 250 ML IV PRN (13:31)
[2020-10-19 16:00] VITALS: BP 97/53
[2020-10-19] MEDS ORDERED: DOPamine 400MG/D5W[STANDARD] 250 ML IV PRN (16:30)
[2020-10-19 16:59] LABS: C-REACTIVE PROTEIN QUANT 7.28 mg/dL (0.00-0.30)
[2020-10-19] MEDS: DAPTOMYCIN 500 MG in SODIUM CHLORIDE 0.9% 50 ML IV SCH (17:38)
[2020-10-19 20:00] VITALS: BP 127/62
[2020-10-19] MEDS: ATORVASTATIN CALCIUM 20 MG TABLET PO SCH (20:55)
[2020-10-20] MEDS: PROPOFOL 1000 MG/ISO-OSM 100 ML IV PRN ×7 (00:21→20:46)
[2020-10-20] MEDS: FentaNYL CIT 1000MCG/D5%-WATER 100 ML IV PRN ×5 (01:48→22:08)
[2020-10-20 04:00] VITALS: BP 129/60
[2020-10-20] MEDS: ALBUMIN HUMAN 25%-12.5GM/50ML 50 ML IV SCH ×3 (05:56→20:46)
[2020-10-20] MEDS: CISATRACURIUM BESYLATE 100 MG in DEXTROSE 5%-WATER 240 ML IV PRN ×4 (05:57→23:06)
[2020-10-20] MEDS: MEROPENEM 1 GM in SODIUM CHLORIDE 0.9% 100 ML IV SCH ×3 (07:33→23:06)
[2020-10-20 08:00] VITALS: BP 121/59
[2020-10-20] MEDS: AMINO ACIDS/PROTEIN HYDROLYS 30 ML TUBE PO SCH ×2 (08:00→12:42)
[2020-10-20] MEDS: MIDAZOLAM HCL 100 MG in DEXTROSE 5%-WATER 180 ML IV PRN ×2 (08:01→23:09)
[2020-10-20] MEDS: ASCORBIC ACID 500 MG TABLET PO SCH ×2 (08:01→20:48)
[2020-10-20] MEDS: ZINC SULFATE 220 MG CAPSULE PO SCH ×2 (08:01→20:47)
[2020-10-20] MEDS: FAMOTIDINE 20 MG TABLET PO SCH ×2 (08:01→20:48)
[2020-10-20] MEDS: CHOLECALCIFEROL (VIT D3) 1,000 UNITS [25 MCG] TABLET PO SCH (08:01)
[2020-10-20] MEDS: DOCUSATE SODIUM 100 MG CAPSULE PO SCH ×2 (08:02→20:47)
[2020-10-20] MEDS: OxyCODONE HCL 5 MG IR TABLET PO SCH ×4 (08:02→20:47)
[2020-10-20] MEDS: LACTULOSE 20 GM/30 ML SOLUTION UDCUP PO SCH ×2 (08:02→20:47)
[2020-10-20] MEDS: DEXAMETHASONE SOD PHOS 4 MG/ML VIAL IVP SCH (08:02)
[2020-10-20] MEDS: METOCLOPRAMIDE HCL 5 MG/ML 2 ML VIAL IVP SCH ×3 (08:03→20:47)
[2020-10-20 08:52] LABS: BASOPHILS % (AUTO) 0.8 % (0.0-2.0); EOSINOPHILS % (AUTO) 1.2 % (1.0-6.0); HEMATOCRIT 35.7 % (41-53); HEMOGLOBIN 11.3 g/dL (13.5-17.5); LYMPHOCYTES # (AUTO) 1.5 K/uL (1.0-4.8); MEAN CORPUSCULAR HEMOGLOBIN 29.3 pg (26.0-34.0); MEAN CORPUSCULAR HGB CONC 31.6 G/dL (31.0-37.0); MEAN CORPUSCULAR VOLUME 93 fL (80-100); MONOCYTES # (AUTO) 1.2 K/uL (0.1-1.0); MONOCYTES % (AUTO) 8.7 % (2.0-9.0); NEUTROPHILS % (AUTO) 78.3 % (40.0-70.0); PLATELET COUNT (AUTO) 323 K/uL (150-450); RED BLOOD CELL COUNT(AUTO) 3.84 MIL/uL (4.50-5.90); RED CELL DISTRIBUTION WIDTH 16.8 % (11.5-14.5)
[2020-10-20 08:58] LABS: ANION GAP 2 mmol/L (8-16); CALCIUM, TOTAL 9.3 mg/dL (8.8-10.5); CARBON DIOXIDE 39 mmol/L (22-29); CHLORIDE 100 mmol/L (98-107); GLOMERULAR FILTR. RATE CALC > 60 mL/min (>60); GLUCOSE,RANDOM 154 mg/dL (70-110); POTASSIUM 4.2 mmol/L (3.5-5.1); SODIUM SERUM 141 mmol/L (136-145); UREA NITROGEN, BLOOD 9 mg/dL (7-18)
[2020-10-20 10:25] LABS: ABG BASE EXCESS 13.9 mmol/L (-2.0-3.0); ABG CARBOXYHEMOGLOBIN 1.7 % (0.0-1.5); ABG HCO3 31.7 mmol/L (22.0-26.0); ABG METHEMOGLOBIN 0.3 % (0.0-1.5); ABG OXYGEN CONTENT 15.1 mL/dL (15.0-23.0); ABG OXYHEMOGLOBIN 84.3 % (94.0-100.0); ABG TOTAL HEMOGLOBIN 12.7 G/dL (12.0-18.0); PO2, ARTERIAL BG 58.3 mmHg (84.0-92.0); SOURCE, BLOOD GAS ARTERIAL; TEMPERATURE, FAHRENHEIT, BG 94.4 FAHREN (96.0-98.6)
[2020-10-20 10:28] LABS: ABG PCO2 175 mmHg (35-45); ABG PH 7.016 (7.35-7.450)
[2020-10-20 10:29] LABS: INSPIRATORY TIME, BG 0.8 SEC; O2 DEVICE,BLOOD GAS VENTILATOR (ROOM AIR); PEEP,BG 10 cm H2O; SITE, BLOOD GAS ALINE; VENT MODE, BG PC (ROOM AIR)
[2020-10-20 12:00] VITALS: BP 103/57
[2020-10-20 13:26] LABS: ABG A-A DIFF O2 509.6 mmHg (10-20.0); ABG BASE EXCESS 18.4 mmol/L (-2.0-3.0); ABG HCO3 36.9 mmol/L (22.0-26.0); ABG METHEMOGLOBIN 0.3 % (0.0-1.5); ABG OXYGEN CONTENT 16.5 mL/dL (15.0-23.0); ABG OXYGEN SATURATION 96.1 % (95.0-98.0); ABG OXYHEMOGLOBIN 93.9 % (94.0-100.0); ABG TOTAL HEMOGLOBIN 12.4 G/dL (12.0-18.0); PO2, ARTERIAL BG 75.1 mmHg (84.0-92.0); SOURCE, BLOOD GAS ARTERIAL
[2020-10-20 13:28] LABS: ABG PCO2 133 mmHg (35-45); ABG PH 7.158 (7.35-7.450); O2 DEVICE,BLOOD GAS VENTILATOR (ROOM AIR); SITE, BLOOD GAS ALINE
[2020-10-20 13:29] LABS: PEEP,BG 8 cm H2O; VT, ABG 400 ml
[2020-10-20] MEDS: HEPARIN SODIUM 25000 UNITS/D5W 250 ML IV PRN (14:14)
[2020-10-20 15:33] LABS: ABG A-A DIFF O2 544.8 mmHg (10-20.0); ABG BASE EXCESS 18.6 mmol/L (-2.0-3.0); ABG CARBOXYHEMOGLOBIN 1.6 % (0.0-1.5); ABG HCO3 37.3 mmol/L (22.0-26.0); ABG METHEMOGLOBIN 0.3 % (0.0-1.5); ABG OXYGEN CONTENT 14.5 mL/dL (15.0-23.0); ABG OXYGEN SATURATION 87.7 % (95.0-98.0); PO2, ARTERIAL BG 48.9 mmHg (84.0-92.0); SOURCE, BLOOD GAS ARTERIAL
[2020-10-20 15:35] LABS: ABG PCO2 124 mmHg (35-45); ABG PH 7.186 (7.35-7.450); SITE, BLOOD GAS ALINE
[2020-10-20 15:36] LABS: O2 DEVICE,BLOOD GAS VENTILATOR (ROOM AIR); PEEP,BG 6 cm H2O; VT, ABG 375 ml
[2020-10-20 16:00] VITALS: BP 89/53
[2020-10-20] MEDS: MICONAZOLE NITRATE 2% 142 GM CREAM [BAZA] TP SCH ×2 (16:11→20:48)
[2020-10-20] MEDS: NOREPINEPHRINE 4 MG/D5%-WATER 250 ML IV PRN (16:58)
[2020-10-20] MEDS: DAPTOMYCIN 500 MG in SODIUM CHLORIDE 0.9% 50 ML IV SCH (17:55)
[2020-10-20 18:57] LABS: APPEARANCE,URINE CLOUDY (CLEAR); BILIRUBIN,URINE NEGATIVE (NEGATIVE); GLUCOSE, URINE (UA) NEGATIVE (NEGATIVE); KETONES,URINE NEGATIVE (NEGATIVE); LEUKOCYTE ESTERASE ,URINE NEGATIVE (NEGATIVE); NITRATE,URINE NEGATIVE (NEGATIVE); OCCULT BLOOD,URINE NEGATIVE (NEGATIVE); PH,URINE 5.5 (5.0-8.0); PROTEIN,URINE TRACE (NEGATIVE)
[2020-10-20 19:13] LABS: BACTERIA,URINE Rare /HPF (None Seen); RBC,URINE 0-2 /HPF (0-2); SQUAMOUS EPITHELIAL CELL,UR Rare /LPF (None Seen); WBC,URINE 0-2 /HPF (0-5)
[2020-10-20 20:00] VITALS: BP 98/53
[2020-10-20] MEDS: ATORVASTATIN CALCIUM 20 MG TABLET PO SCH (20:48)
[2020-10-20 22:04] LABS: ABG METHEMOGLOBIN 0.3 % (0.0-1.5); SOURCE, BLOOD GAS ARTERIAL; TEMPERATURE, FAHRENHEIT, BG 98.6 FAHREN (96.0-98.6)
[2020-10-20 22:06] LABS: ABG A-A DIFF O2 583.2 mmHg (10-20.0); ABG BASE EXCESS 9.1 mmol/L (-2.0-3.0); ABG CARBOXYHEMOGLOBIN 1.5 % (0.0-1.5); ABG HCO3 30.4 mmol/L (22.0-26.0); ABG OXYGEN CONTENT 12.9 mL/dL (15.0-23.0); ABG OXYHEMOGLOBIN 82.8 % (94.0-100.0); ABG PH 7.259 (7.35-7.450); ABG TOTAL HEMOGLOBIN 11.1 G/dL (12.0-18.0); PO2, ARTERIAL BG 47.2 mmHg (84.0-92.0)
[2020-10-20 22:07] LABS: ABG OXYGEN SATURATION 84.3 % (95.0-98.0); ABG PCO2 83 mmHg (35-45)
[2020-10-20 22:08] LABS: O2 DEVICE,BLOOD GAS VENTILATOR (ROOM AIR); PEEP,BG 8 cm H2O; SITE, BLOOD GAS ARTERIAL LINE; VT, ABG 375 ml
[2020-10-21] VITALS: BP 119/58
[2020-10-21] MEDS: POTASSIUM CHL 10 MEQ/WATER 50 ML IV PRN (01:15)
[2020-10-21] MEDS: PROPOFOL 1000 MG/ISO-OSM 100 ML IV PRN ×6 (01:17→16:11)
[2020-10-21 04:00] VITALS: BP 121/54
[2020-10-21] MEDS: CISATRACURIUM BESYLATE 100 MG in DEXTROSE 5%-WATER 240 ML IV PRN ×4 (04:02→21:17)
[2020-10-21] MEDS: FentaNYL CIT 1000MCG/D5%-WATER 100 ML IV PRN ×4 (04:03→16:12)
[2020-10-21] MEDS: ALBUMIN HUMAN 25%-12.5GM/50ML 50 ML IV SCH ×3 (04:05→20:01)
[2020-10-21 06:30] LABS: HEMATOCRIT 30.4 % (41-53); HEMOGLOBIN 9.8 g/dL (13.5-17.5); MEAN CORPUSCULAR HEMOGLOBIN 29.3 pg (26.0-34.0); MEAN CORPUSCULAR HGB CONC 32.1 G/dL (31.0-37.0); MEAN CORPUSCULAR VOLUME 91 fL (80-100); PLATELET COUNT (AUTO) 246 K/uL (150-450); RED BLOOD CELL COUNT(AUTO) 3.33 MIL/uL (4.50-5.90); RED CELL DISTRIBUTION WIDTH 16.2 % (11.5-14.5)
[2020-10-21 06:49] LABS: ALANINE AMINOTRANSFERASE 59 U/L (12-78); ALBUMIN 3.2 g/dL (3.4-5.0); ALKALINE PHOSPHATASE 53 U/L (46-116); ANION GAP 1 mmol/L (8-16); ASPARTATE AMINOTRANSFERASE 40 U/L (15-37); BILIRUBIN,TOTAL 0.6 mg/dL (0.1-1.0); C-REACTIVE PROTEIN QUANT 6.01 mg/dL (0.00-0.30); CALCIUM, TOTAL 9.7 mg/dL (8.8-10.5); CARBON DIOXIDE 39 mmol/L (22-29); CHLORIDE 99 mmol/L (98-107); CREATININE 0.84 mg/dL (0.60-1.30); GLOMERULAR FILTR. RATE CALC > 60 mL/min (>60); GLUCOSE,RANDOM 84 mg/dL (70-110); POTASSIUM 4.2 mmol/L (3.5-5.1); SODIUM SERUM 139 mmol/L (136-145); UREA NITROGEN, BLOOD 11 mg/dL (7-18)
[2020-10-21] MEDS: MEROPENEM 1 GM in SODIUM CHLORIDE 0.9% 100 ML IV SCH ×3 (07:23→23:34)
[2020-10-21 08:00] VITALS: BP 126/54
[2020-10-21] MEDS: AMINO ACIDS/PROTEIN HYDROLYS 30 ML TUBE PO SCH ×2 (08:36→12:18)
[2020-10-21] MEDS: LACTULOSE 20 GM/30 ML SOLUTION UDCUP PO SCH ×2 (08:37→20:00)
[2020-10-21] MEDS: OxyCODONE HCL 5 MG IR TABLET PO SCH ×4 (08:38→20:00)
[2020-10-21] MEDS: DOCUSATE SODIUM 100 MG CAPSULE PO SCH ×2 (08:38→20:00)
[2020-10-21] MEDS: ASCORBIC ACID 500 MG TABLET PO SCH ×2 (08:38→20:00)
[2020-10-21] MEDS: FAMOTIDINE 20 MG TABLET PO SCH ×2 (08:38→20:00)
[2020-10-21] MEDS: MAGNESIUM HYDROXIDE SUSPENSION 30 ML UDCUP PO PRN (08:38)
[2020-10-21] MEDS: CHOLECALCIFEROL (VIT D3) 1,000 UNITS [25 MCG] TABLET PO SCH (08:38)
[2020-10-21] MEDS: DEXAMETHASONE SOD PHOS 4 MG/ML VIAL IVP SCH (08:39)
[2020-10-21] MEDS: METOCLOPRAMIDE HCL 5 MG/ML 2 ML VIAL IVP SCH ×3 (08:39→20:00)
[2020-10-21] MEDS: ZINC SULFATE 220 MG CAPSULE PO SCH ×2 (08:39→20:00)
[2020-10-21] MEDS: MICONAZOLE NITRATE 2% 142 GM CREAM [BAZA] TP SCH ×2 (08:41→20:01)
[2020-10-21 12:00] VITALS: BP 118/58
[2020-10-21] MEDS: MIDAZOLAM HCL 100 MG in DEXTROSE 5%-WATER 180 ML IV PRN ×2 (12:18→23:34)
[2020-10-21] MEDS ORDERED: SODIUM CHLORIDE 0.9% 250 ML IV ONE (12:27)
[2020-10-21 15:01] LABS: BAND NEUTROPHILS % (MANUAL) 4 % (0-5); EOSINOPHILS % (MANUAL) 4 % (1-6); LYMPHOCYTES % (MANUAL) 13 % (22-44); MONOCYTES % (MANUAL) 13 % (2-9); SEGMENTED NEUTROPHILS % 66 % (40-70)
[2020-10-21 15:58] LABS: GLUCOSE,POINT OF CARE 117 MG/DL (70-110)
[2020-10-21 16:00] VITALS: BP 107/56
[2020-10-21] MEDS: DAPTOMYCIN 500 MG in SODIUM CHLORIDE 0.9% 50 ML IV SCH (17:46)
[2020-10-21 18:49] LABS: GLUCOSE,POINT OF CARE 113 MG/DL (70-110)
[2020-10-21 20:00] VITALS: BP 111/58
[2020-10-21] MEDS: ATORVASTATIN CALCIUM 20 MG TABLET PO SCH (20:00)
[2020-10-22] VITALS: BP 132/60
[2020-10-22] MEDS: PROPOFOL 1000 MG/ISO-OSM 100 ML IV PRN ×6 (00:16→18:18)
[2020-10-22] MEDS: FentaNYL CIT 1000MCG/D5%-WATER 100 ML IV PRN ×5 (00:42→18:19)
[2020-10-22] MEDS: CISATRACURIUM BESYLATE 100 MG in DEXTROSE 5%-WATER 240 ML IV PRN ×4 (03:56→20:51)
[2020-10-22 04:00] VITALS: BP 121/57
[2020-10-22] MEDS: ALBUMIN HUMAN 25%-12.5GM/50ML 50 ML IV SCH ×3 (05:30→20:51)
[2020-10-22] MEDS: MEROPENEM 1 GM in SODIUM CHLORIDE 0.9% 100 ML IV SCH ×3 (06:15→23:12)
[2020-10-22 08:00] VITALS: BP 118/58
[2020-10-22] MEDS: DEXAMETHASONE SOD PHOS 4 MG/ML VIAL IVP SCH (09:15)
[2020-10-22] MEDS: LACTULOSE 20 GM/30 ML SOLUTION UDCUP PO SCH ×2 (09:15→20:51)
[2020-10-22] MEDS: ASCORBIC ACID 500 MG TABLET PO SCH ×2 (09:16→20:52)
[2020-10-22] MEDS: METOCLOPRAMIDE HCL 5 MG/ML 2 ML VIAL IVP SCH ×3 (09:16→20:53)
[2020-10-22] MEDS: ZINC SULFATE 220 MG CAPSULE PO SCH ×2 (09:16→20:52)
[2020-10-22] MEDS: FAMOTIDINE 20 MG TABLET PO SCH ×2 (09:16→20:52)
[2020-10-22] MEDS: CHOLECALCIFEROL (VIT D3) 1,000 UNITS [25 MCG] TABLET PO SCH (09:16)
[2020-10-22] MEDS: DOCUSATE SODIUM 100 MG CAPSULE PO SCH ×2 (09:16→20:52)
[2020-10-22] MEDS: OxyCODONE HCL 5 MG IR TABLET PO SCH ×4 (09:17→20:52)
[2020-10-22] MEDS: MICONAZOLE NITRATE 2% 142 GM CREAM [BAZA] TP SCH ×2 (09:18→20:53)
[2020-10-22] MEDS: AMINO ACIDS/PROTEIN HYDROLYS 30 ML TUBE PO SCH ×2 (09:18→13:16)
[2020-10-22 09:24] LABS: HEMATOCRIT 30.4 % (41-53); HEMOGLOBIN 9.8 g/dL (13.5-17.5); MEAN CORPUSCULAR HEMOGLOBIN 29.6 pg (26.0-34.0); MEAN CORPUSCULAR HGB CONC 32.4 G/dL (31.0-37.0); MEAN CORPUSCULAR VOLUME 91 fL (80-100); PLATELET COUNT (AUTO) 224 K/uL (150-450); RED BLOOD CELL COUNT(AUTO) 3.33 MIL/uL (4.50-5.90); RED CELL DISTRIBUTION WIDTH 15.9 % (11.5-14.5)
[2020-10-22 09:33] LABS: BAND NEUTROPHILS % (MANUAL) 5 % (0-5); EOSINOPHILS % (MANUAL) 4 % (1-6); LYMPHOCYTES % (MANUAL) 11 % (22-44); MONOCYTES % (MANUAL) 13 % (2-9); SEGMENTED NEUTROPHILS % 67 % (40-70)
[2020-10-22 09:37] LABS: ANION GAP 2 mmol/L (8-16); CALCIUM, TOTAL 9.6 mg/dL (8.8-10.5); CHLORIDE 98 mmol/L (98-107); GLOMERULAR FILTR. RATE CALC > 60 mL/min (>60); GLUCOSE,RANDOM 97 mg/dL (70-110); POTASSIUM 3.9 mmol/L (3.5-5.1); SODIUM SERUM 142 mmol/L (136-145); UREA NITROGEN, BLOOD 14 mg/dL (7-18)
[2020-10-22 09:39] LABS: CARBON DIOXIDE 42 mmol/L (22-29)
[2020-10-22 12:00] VITALS: BP 114/55
[2020-10-22 13:52] LABS: ABG BASE EXCESS 15.5 mmol/L (-2.0-3.0); ABG CARBOXYHEMOGLOBIN 2.4 % (0.0-1.5); ABG HCO3 35.4 mmol/L (22.0-26.0); ABG METHEMOGLOBIN 0.3 % (0.0-1.5); ABG OXYGEN CONTENT 13.9 mL/dL (15.0-23.0); ABG OXYGEN SATURATION 88.2 % (95.0-98.0); ABG OXYHEMOGLOBIN 85.8 % (94.0-100.0); ABG PH 7.236 (7.35-7.450); ABG TOTAL HEMOGLOBIN 11.5 G/dL (12.0-18.0); SOURCE, BLOOD GAS ARTERIAL; TEMPERATURE, FAHRENHEIT, BG 98.5 FAHREN (96.0-98.6)
[2020-10-22 14:00] LABS: ABG PCO2 103 mmHg (35-45); SITE, BLOOD GAS ARTERIAL LINE
[2020-10-22 14:01] LABS: O2 DEVICE,BLOOD GAS VENTILATOR (ROOM AIR); PEEP,BG 8 cm H2O; VT, ABG 375 ml
[2020-10-22] MEDS: MIDAZOLAM HCL 100 MG in DEXTROSE 5%-WATER 180 ML IV PRN (15:39)
[2020-10-22 16:00] VITALS: BP 101/52
[2020-10-22] MEDS: DAPTOMYCIN 500 MG in SODIUM CHLORIDE 0.9% 50 ML IV SCH (18:18)
[2020-10-22 20:00] VITALS: BP 117/57
[2020-10-22 20:19] LABS: ABG A-A DIFF O2 543.4 mmHg (10-20.0); ABG BASE EXCESS 14.3 mmol/L (-2.0-3.0); ABG CARBOXYHEMOGLOBIN 2.4 % (0.0-1.5); ABG HCO3 34.8 mmol/L (22.0-26.0); ABG METHEMOGLOBIN 0.3 % (0.0-1.5); ABG OXYGEN CONTENT 14.1 mL/dL (15.0-23.0); ABG OXYGEN SATURATION 94.3 % (95.0-98.0); ABG OXYHEMOGLOBIN 91.8 % (94.0-100.0); ABG PCO2 98 mmHg (35-45); ABG PH 7.244 (7.35-7.450); ABG TOTAL HEMOGLOBIN 10.9 G/dL (12.0-18.0); PO2, ARTERIAL BG 72.7 mmHg (84.0-92.0); SITE, BLOOD GAS ARTERIAL LINE; SOURCE, BLOOD GAS ARTERIAL; TEMPERATURE, FAHRENHEIT, BG 97.7 FAHREN (96.0-98.6)
[2020-10-22 20:20] LABS: O2 DEVICE,BLOOD GAS VENTILATOR (ROOM AIR); PEEP,BG 8 cm H2O; VT, ABG 375 ml
[2020-10-22] MEDS: FLUCONAZOLE 400 MG/NACL ISOOSM 200 ML IV SCH (20:48)
[2020-10-22] MEDS: HEPARIN SODIUM 25000 UNITS/D5W 250 ML IV PRN (20:49)
[2020-10-22] MEDS: ATORVASTATIN CALCIUM 20 MG TABLET PO SCH (20:52)
[2020-10-23] VITALS: BP 100/49
[2020-10-23] MEDS: FentaNYL CIT 1000MCG/D5%-WATER 100 ML IV PRN ×4 (01:10→17:08)
[2020-10-23] MEDS: PROPOFOL 1000 MG/ISO-OSM 100 ML IV PRN ×6 (01:11→22:30)
[2020-10-23] MEDS: CISATRACURIUM BESYLATE 100 MG in DEXTROSE 5%-WATER 240 ML IV PRN ×4 (02:55→21:18)
[2020-10-23] MEDS: MIDAZOLAM HCL 100 MG in DEXTROSE 5%-WATER 180 ML IV PRN ×2 (02:56→15:37)
[2020-10-23 04:00] VITALS: BP 91/44
[2020-10-23] MEDS: ALBUMIN HUMAN 25%-12.5GM/50ML 50 ML IV SCH ×3 (04:56→20:48)
[2020-10-23 05:27] LABS: HEMATOCRIT 26.8 % (41-53); HEMOGLOBIN 8.8 g/dL (13.5-17.5); MEAN CORPUSCULAR HEMOGLOBIN 29.7 pg (26.0-34.0); MEAN CORPUSCULAR HGB CONC 32.9 G/dL (31.0-37.0); MEAN CORPUSCULAR VOLUME 90 fL (80-100); PLATELET COUNT (AUTO) 202 K/uL (150-450); RED BLOOD CELL COUNT(AUTO) 2.96 MIL/uL (4.50-5.90); RED CELL DISTRIBUTION WIDTH 16.2 % (11.5-14.5)
[2020-10-23] MEDS ORDERED: SODIUM CHLORIDE 0.9% 500 ML IV ONE (05:33)
[2020-10-23 05:48] LABS: ANION GAP 1 mmol/L (8-16); CALCIUM, TOTAL 9.9 mg/dL (8.8-10.5); CHLORIDE 97 mmol/L (98-107); CREATININE 1.03 mg/dL (0.60-1.30); GLOMERULAR FILTR. RATE CALC > 60 mL/min (>60); GLUCOSE,RANDOM 87 mg/dL (70-110); POTASSIUM 4.2 mmol/L (3.5-5.1); SODIUM SERUM 140 mmol/L (136-145); UREA NITROGEN, BLOOD 17 mg/dL (7-18)
[2020-10-23 05:57] LABS: CARBON DIOXIDE 42 mmol/L (22-29)
[2020-10-23 06:07] LABS: BAND NEUTROPHILS % (MANUAL) 7 % (0-5); LYMPHOCYTES % (MANUAL) 14 % (22-44); MONOCYTES % (MANUAL) 6 % (2-9); SEGMENTED NEUTROPHILS % 73 % (40-70)
[2020-10-23] MEDS: MEROPENEM 1 GM in SODIUM CHLORIDE 0.9% 100 ML IV SCH ×2 (06:11→14:12)
[2020-10-23 08:00] VITALS: BP 125/58
[2020-10-23] MEDS: AMINO ACIDS/PROTEIN HYDROLYS 30 ML TUBE PO SCH ×2 (09:14→12:07)
[2020-10-23] MEDS: FAMOTIDINE 20 MG TABLET PO SCH ×2 (09:15→20:50)
[2020-10-23] MEDS: ZINC SULFATE 220 MG CAPSULE PO SCH ×2 (09:15→20:49)
[2020-10-23] MEDS: METOCLOPRAMIDE HCL 5 MG/ML 2 ML VIAL IVP SCH ×3 (09:15→20:49)
[2020-10-23] MEDS: CHOLECALCIFEROL (VIT D3) 1,000 UNITS [25 MCG] TABLET PO SCH (09:15)
[2020-10-23] MEDS: LACTULOSE 20 GM/30 ML SOLUTION UDCUP PO SCH ×2 (09:15→20:48)
[2020-10-23] MEDS: DEXAMETHASONE SOD PHOS 4 MG/ML VIAL IVP SCH (09:15)
[2020-10-23] MEDS: DOCUSATE SODIUM 100 MG CAPSULE PO SCH ×2 (09:15→20:48)
[2020-10-23] MEDS: OxyCODONE HCL 5 MG IR TABLET PO SCH ×4 (09:15→20:49)
[2020-10-23] MEDS: ASCORBIC ACID 500 MG TABLET PO SCH ×2 (09:16→20:49)
[2020-10-23] MEDS: MICONAZOLE NITRATE 2% 142 GM CREAM [BAZA] TP SCH ×2 (09:20→20:50)
[2020-10-23 11:02] LABS: ABG BASE EXCESS 19.7 mmol/L (-2.0-3.0); ABG CARBOXYHEMOGLOBIN 2.4 % (0.0-1.5); ABG HCO3 40.5 mmol/L (22.0-26.0); ABG METHEMOGLOBIN 0.3 % (0.0-1.5); ABG OXYGEN CONTENT 10.5 mL/dL (15.0-23.0); ABG OXYGEN SATURATION 76.7 % (95.0-98.0); ABG OXYHEMOGLOBIN 74.6 % (94.0-100.0); ABG PCO2 70 mmHg (35-45); PO2, ARTERIAL BG 36.9 mmHg (84.0-92.0); SOURCE, BLOOD GAS ARTERIAL; TEMPERATURE, FAHRENHEIT, BG 98.3 FAHREN (96.0-98.6)
[2020-10-23 11:03] LABS: O2 DEVICE,BLOOD GAS VENTILATOR (ROOM AIR); PEEP,BG 6 cm H2O; SITE, BLOOD GAS ARTERIAL LINE; SPONTANEOUS VT, BG 388 ml; VENT MODE, BG Press. Control Vent (ROOM AIR)
[2020-10-23 12:00] VITALS: BP 112/54
[2020-10-23 13:56] LABS: ABG A-A DIFF O2 597.3 mmHg (10-20.0); ABG BASE EXCESS 12.7 mmol/L (-2.0-3.0); ABG CARBOXYHEMOGLOBIN 2.5 % (0.0-1.5); ABG HCO3 34.4 mmol/L (22.0-26.0); ABG METHEMOGLOBIN 0.3 % (0.0-1.5); ABG OXYGEN CONTENT 11.7 mL/dL (15.0-23.0); ABG OXYHEMOGLOBIN 84.6 % (94.0-100.0); ABG PCO2 65 mmHg (35-45); ABG PH 7.385 (7.35-7.450); ABG TOTAL HEMOGLOBIN 9.8 G/dL (12.0-18.0); PO2, ARTERIAL BG 50.9 mmHg (84.0-92.0); SOURCE, BLOOD GAS ARTERIAL; TEMPERATURE, FAHRENHEIT, BG 98.7 FAHREN (96.0-98.6)
[2020-10-23 13:57] LABS: O2 DEVICE,BLOOD GAS VENTILATOR (ROOM AIR); SITE, BLOOD GAS ARTERIAL LINE; VENT MODE, BG Press. Control Vent (ROOM AIR)
[2020-10-23 13:58] LABS: PEEP,BG 10 cm H2O
[2020-10-23 13:59] LABS: SPONTANEOUS VT, BG 370 ml
[2020-10-23 16:00] VITALS: BP 112/63
[2020-10-23 20:00] VITALS: BP 116/66
[2020-10-23] MEDS: FLUCONAZOLE 400 MG/NACL ISOOSM 200 ML IV SCH (20:49)
[2020-10-23] MEDS: ATORVASTATIN CALCIUM 20 MG TABLET PO SCH (20:49)
[2020-10-24] MEDS: FentaNYL CIT 1000MCG/D5%-WATER 100 ML IV PRN ×4 (00:04→21:24)
[2020-10-24] MEDS: MEROPENEM 1 GM in SODIUM CHLORIDE 0.9% 100 ML IV SCH ×4 (00:06→23:12)
[2020-10-24 00:25] VITALS: BP 118/59
[2020-10-24] MEDS: CISATRACURIUM BESYLATE 100 MG in DEXTROSE 5%-WATER 240 ML IV PRN ×4 (02:59→22:00)
[2020-10-24] MEDS: PROPOFOL 1000 MG/ISO-OSM 100 ML IV PRN ×6 (03:09→21:23)
[2020-10-24] MEDS: HEPARIN SODIUM 25000 UNITS/D5W 250 ML IV PRN (03:11)
[2020-10-24 05:05] VITALS: BP 150/68
[2020-10-24] MEDS: ALBUMIN HUMAN 25%-12.5GM/50ML 50 ML IV SCH ×3 (05:07→20:46)
[2020-10-24 05:30] LABS: HEMATOCRIT 26.8 % (41-53); HEMOGLOBIN 8.8 g/dL (13.5-17.5); MEAN CORPUSCULAR HEMOGLOBIN 29.3 pg (26.0-34.0); MEAN CORPUSCULAR HGB CONC 32.7 G/dL (31.0-37.0); MEAN CORPUSCULAR VOLUME 90 fL (80-100); PLATELET COUNT (AUTO) 238 K/uL (150-450)
[2020-10-24 05:41] LABS: ANION GAP 5 mmol/L (8-16); CARBON DIOXIDE 37 mmol/L (22-29); CHLORIDE 103 mmol/L (98-107); CREATININE 1.14 mg/dL (0.60-1.30); GLOMERULAR FILTR. RATE CALC > 60 mL/min (>60); GLUCOSE,RANDOM 125 mg/dL (70-110); POTASSIUM 3.8 mmol/L (3.5-5.1); SODIUM SERUM 145 mmol/L (136-145); UREA NITROGEN, BLOOD 22 mg/dL (7-18)
[2020-10-24] MEDS: HEPARIN SODIUM,PORCINE 5,000 UNITS/ML VIAL IVP PRN (06:11)
[2020-10-24 07:39] LABS: BAND NEUTROPHILS % (MANUAL) 5 % (0-5); LYMPHOCYTES % (MANUAL) 9 % (22-44); METAMYELOCYTES % 3 % (0-0); MONOCYTES % (MANUAL) 3 % (2-9); SEGMENTED NEUTROPHILS % 80 % (40-70)
[2020-10-24 08:00] VITALS: BP 130/58
[2020-10-24] MEDS: LACTULOSE 20 GM/30 ML SOLUTION UDCUP PO SCH ×2 (09:12→20:47)
[2020-10-24] MEDS: OxyCODONE HCL 5 MG IR TABLET PO SCH ×4 (09:12→20:48)
[2020-10-24] MEDS: ZINC SULFATE 220 MG CAPSULE PO SCH ×2 (09:12→20:47)
[2020-10-24] MEDS: CHOLECALCIFEROL (VIT D3) 1,000 UNITS [25 MCG] TABLET PO SCH (09:12)
[2020-10-24] MEDS: DOCUSATE SODIUM 100 MG CAPSULE PO SCH ×2 (09:12→20:47)
[2020-10-24] MEDS: FAMOTIDINE 20 MG TABLET PO SCH ×2 (09:12→20:47)
[2020-10-24] MEDS: ASCORBIC ACID 500 MG TABLET PO SCH ×2 (09:12→20:47)
[2020-10-24] MEDS: DEXAMETHASONE SOD PHOS 4 MG/ML VIAL IVP SCH (09:13)
[2020-10-24] MEDS: AMINO ACIDS/PROTEIN HYDROLYS 30 ML TUBE PO SCH ×2 (09:13→11:51)
[2020-10-24] MEDS: METOCLOPRAMIDE HCL 5 MG/ML 2 ML VIAL IVP SCH ×3 (09:13→20:47)
[2020-10-24] MEDS: MICONAZOLE NITRATE 2% 142 GM CREAM [BAZA] TP SCH ×2 (09:13→21:27)
[2020-10-24] MEDS: MIDAZOLAM HCL 100 MG in DEXTROSE 5%-WATER 180 ML IV PRN (10:47)
[2020-10-24 12:00] VITALS: BP 128/59
[2020-10-24 16:00] VITALS: BP 124/55
[2020-10-24 20:00] VITALS: BP 126/60
[2020-10-24] MEDS: FLUCONAZOLE 400 MG/NACL ISOOSM 200 ML IV SCH (20:30)
[2020-10-24] MEDS: ATORVASTATIN CALCIUM 20 MG TABLET PO SCH (20:47)
[2020-10-25] VITALS: BP 127/59
[2020-10-25] MEDS: MIDAZOLAM HCL 100 MG in DEXTROSE 5%-WATER 180 ML IV PRN ×2 (01:11→21:25)
[2020-10-25] MEDS ORDERED: SODIUM CHLORIDE 0.9% 500 ML IV ONE (03:13)
[2020-10-25] MEDS ORDERED: SODIUM CHLORIDE 0.9% 250 ML IV ONE ×2 (03:13→16:01)
[2020-10-25 04:00] VITALS: BP 141/68
[2020-10-25] MEDS: CISATRACURIUM BESYLATE 100 MG in DEXTROSE 5%-WATER 240 ML IV PRN ×4 (04:32→23:36)
[2020-10-25] MEDS: HEPARIN SODIUM 25000 UNITS/D5W 250 ML IV PRN ×2 (04:33→23:34)
[2020-10-25] MEDS: ALBUMIN HUMAN 25%-12.5GM/50ML 50 ML IV SCH ×3 (04:35→21:28)
[2020-10-25] MEDS: MEROPENEM 1 GM in SODIUM CHLORIDE 0.9% 100 ML IV SCH ×3 (06:21→23:34)
[2020-10-25 08:00] VITALS: BP 135/64
[2020-10-25] MEDS: AMINO ACIDS/PROTEIN HYDROLYS 30 ML TUBE PO SCH ×2 (08:57→13:32)
[2020-10-25] MEDS: DEXAMETHASONE SOD PHOS 4 MG/ML VIAL IVP SCH (08:58)
[2020-10-25] MEDS: METOCLOPRAMIDE HCL 5 MG/ML 2 ML VIAL IVP SCH ×3 (08:58→21:25)
[2020-10-25] MEDS: LACTULOSE 20 GM/30 ML SOLUTION UDCUP PO SCH ×2 (08:59→21:25)
[2020-10-25] MEDS: DOCUSATE SODIUM 100 MG CAPSULE PO SCH ×2 (08:59→21:26)
[2020-10-25] MEDS: ASCORBIC ACID 500 MG TABLET PO SCH ×2 (08:59→21:26)
[2020-10-25] MEDS: CHOLECALCIFEROL (VIT D3) 1,000 UNITS [25 MCG] TABLET PO SCH (08:59)
[2020-10-25] MEDS: FentaNYL CIT 1000MCG/D5%-WATER 100 ML IV PRN ×3 (09:00→21:23)
[2020-10-25] MEDS: OxyCODONE HCL 5 MG IR TABLET PO SCH ×4 (09:00→21:26)
[2020-10-25] MEDS: FAMOTIDINE 20 MG TABLET PO SCH ×2 (09:03→21:25)
[2020-10-25] MEDS: ZINC SULFATE 220 MG CAPSULE PO SCH ×2 (09:03→21:26)
[2020-10-25] MEDS: MICONAZOLE NITRATE 2% 142 GM CREAM [BAZA] TP SCH ×2 (09:42→21:35)
[2020-10-25 10:00] LABS: HEMOGLOBIN 8.8 g/dL (13.5-17.5); MEAN CORPUSCULAR HEMOGLOBIN 29.2 pg (26.0-34.0); MEAN CORPUSCULAR HGB CONC 32.6 G/dL (31.0-37.0); MEAN CORPUSCULAR VOLUME 90 fL (80-100); PLATELET COUNT (AUTO) 236 K/uL (150-450); RED BLOOD CELL COUNT(AUTO) 3.01 MIL/uL (4.50-5.90); RED CELL DISTRIBUTION WIDTH 16.8 % (11.5-14.5)
[2020-10-25 10:03] LABS: CALCIUM, TOTAL 9.6 mg/dL (8.8-10.5); CREATININE 1.26 mg/dL (0.60-1.30); POTASSIUM 3.7 mmol/L (3.5-5.1)
[2020-10-25 10:24] LABS: BAND NEUTROPHILS % (MANUAL) 7 % (0-5); LYMPHOCYTES % (MANUAL) 10 % (22-44); METAMYELOCYTES % 2 % (0-0); MONOCYTES % (MANUAL) 5 % (2-9); SEGMENTED NEUTROPHILS % 76 % (40-70)
[2020-10-25 12:00] VITALS: BP 155/71
[2020-10-25] MEDS: MINERAL OIL 133 ML ENEMA PR SCH (12:00)
[2020-10-25] MEDS: PROPOFOL 1000 MG/ISO-OSM 100 ML IV PRN ×4 (13:00→22:00)
[2020-10-25 16:00] VITALS: BP 121/58
[2020-10-25 20:00] VITALS: BP 117/59
[2020-10-25] MEDS: FLUCONAZOLE 400 MG/NACL ISOOSM 200 ML IV SCH (21:01)
[2020-10-25] MEDS: ATORVASTATIN CALCIUM 20 MG TABLET PO SCH (21:26)
[2020-10-25 21:48] LABS: ALBUMIN 3.6 g/dL (3.4-5.0); BILIRUBIN,DIRECT 0.3 mg/dL (0.00-0.20); BILIRUBIN,TOTAL 0.7 mg/dL (0.1-1.0); C-REACTIVE PROTEIN QUANT 7.98 mg/dL (0.00-0.30)
[2020-10-26] VITALS: BP 137/69
[2020-10-26] MEDS ORDERED: SODIUM CHLORIDE 0.9% 250 ML IV ONE (00:13)
[2020-10-26 04:00] VITALS: BP 139/67
[2020-10-26] MEDS: PROPOFOL 1000 MG/ISO-OSM 100 ML IV PRN ×4 (04:50→22:04)
[2020-10-26] MEDS: ALBUMIN HUMAN 25%-12.5GM/50ML 50 ML IV SCH ×3 (04:50→22:02)
[2020-10-26 05:51] LABS: HEMATOCRIT 27.5 % (41-53); HEMOGLOBIN 9.4 g/dL (13.5-17.5); MEAN CORPUSCULAR HEMOGLOBIN 29.9 pg (26.0-34.0); MEAN CORPUSCULAR VOLUME 88 fL (80-100); PLATELET COUNT (AUTO) 259 K/uL (150-450); RED BLOOD CELL COUNT(AUTO) 3.13 MIL/uL (4.50-5.90); RED CELL DISTRIBUTION WIDTH 16.2 % (11.5-14.5)
[2020-10-26] MEDS: MEROPENEM 1 GM in SODIUM CHLORIDE 0.9% 100 ML IV SCH ×2 (06:00→15:12)
[2020-10-26 06:02] LABS: ANION GAP 2 mmol/L (8-16); CALCIUM, TOTAL 9.2 mg/dL (8.8-10.5); CARBON DIOXIDE 38 mmol/L (22-29); CHLORIDE 103 mmol/L (98-107); CREATININE 1.17 mg/dL (0.60-1.30); GLOMERULAR FILTR. RATE CALC > 60 mL/min (>60); GLUCOSE,RANDOM 110 mg/dL (70-110); POTASSIUM 3.5 mmol/L (3.5-5.1); SODIUM SERUM 143 mmol/L (136-145); UREA NITROGEN, BLOOD 27 mg/dL (7-18)
[2020-10-26 07:29] LABS: BAND NEUTROPHILS % (MANUAL) 10 % (0-5); LYMPHOCYTES % (MANUAL) 12 % (22-44); MONOCYTES % (MANUAL) 7 % (2-9); SEGMENTED NEUTROPHILS % 71 % (40-70)
[2020-10-26 08:00] VITALS: BP 146/63
[2020-10-26] MEDS: FentaNYL CIT 1000MCG/D5%-WATER 100 ML IV PRN ×2 (08:11→17:22)
[2020-10-26] MEDS: CISATRACURIUM BESYLATE 100 MG in DEXTROSE 5%-WATER 240 ML IV PRN ×3 (08:40→22:54)
[2020-10-26] MEDS: AMINO ACIDS/PROTEIN HYDROLYS 30 ML TUBE PO SCH ×2 (08:48→08:54)
[2020-10-26] MEDS: LACTULOSE 20 GM/30 ML SOLUTION UDCUP PO SCH ×2 (08:49→22:02)
[2020-10-26] MEDS: CHOLECALCIFEROL (VIT D3) 1,000 UNITS [25 MCG] TABLET PO SCH (08:50)
[2020-10-26] MEDS: METOCLOPRAMIDE HCL 5 MG/ML 2 ML VIAL IVP SCH ×3 (08:50→22:02)
[2020-10-26] MEDS: DEXAMETHASONE SOD PHOS 4 MG/ML VIAL IVP SCH (08:50)
[2020-10-26] MEDS: FAMOTIDINE 20 MG TABLET PO SCH ×2 (08:50→22:02)
[2020-10-26] MEDS: ZINC SULFATE 220 MG CAPSULE PO SCH ×2 (08:51→22:03)
[2020-10-26] MEDS: ASCORBIC ACID 500 MG TABLET PO SCH ×2 (08:51→22:03)
[2020-10-26] MEDS: DOCUSATE SODIUM 100 MG CAPSULE PO SCH ×2 (08:51→22:02)
[2020-10-26] MEDS: OxyCODONE HCL 5 MG IR TABLET PO SCH ×4 (08:51→22:03)
[2020-10-26] MEDS: MICONAZOLE NITRATE 2% 142 GM CREAM [BAZA] TP SCH ×2 (08:52→22:05)
[2020-10-26 12:00] VITALS: BP 142/65
[2020-10-26] MEDS: MINERAL OIL 133 ML ENEMA PR SCH (13:58)
[2020-10-26 16:00] VITALS: BP 131/64
[2020-10-26] MEDS: HEPARIN SODIUM 25000 UNITS/D5W 250 ML IV PRN (16:37)
[2020-10-26] MEDS: MIDAZOLAM HCL 100 MG in DEXTROSE 5%-WATER 180 ML IV PRN (16:38)
[2020-10-26] MEDS: DIAZEPAM 5 MG TABLET PO SCH ×2 (16:39→22:03)
[2020-10-26] MEDS: FLUCONAZOLE 400 MG/NACL ISOOSM 200 ML IV SCH (19:46)
[2020-10-26 20:00] VITALS: BP 122/58
[2020-10-26] MEDS: ATORVASTATIN CALCIUM 20 MG TABLET PO SCH (22:03)
[2020-10-27] VITALS: BP 138/68
[2020-10-27 04:00] VITALS: BP 139/68
[2020-10-27] MEDS: ALBUMIN HUMAN 25%-12.5GM/50ML 50 ML IV SCH ×3 (04:12→20:01)
[2020-10-27] MEDS: FentaNYL CIT 1000MCG/D5%-WATER 100 ML IV PRN ×3 (04:13→23:41)
[2020-10-27] MEDS ORDERED: SODIUM CHLORIDE 0.9% 250 ML IV ONE (04:42)
[2020-10-27] MEDS ORDERED: SODIUM CHLORIDE 0.9% 500 ML IV ONE (04:42)
[2020-10-27] MEDS: PROPOFOL 1000 MG/ISO-OSM 100 ML IV PRN ×4 (04:49→20:08)
[2020-10-27 05:44] LABS: HEMOGLOBIN 9.7 g/dL (13.5-17.5); MEAN CORPUSCULAR HEMOGLOBIN 29.7 pg (26.0-34.0); MEAN CORPUSCULAR HGB CONC 33.6 G/dL (31.0-37.0); MEAN CORPUSCULAR VOLUME 88 fL (80-100); PLATELET COUNT (AUTO) 277 K/uL (150-450); RED BLOOD CELL COUNT(AUTO) 3.29 MIL/uL (4.50-5.90); RED CELL DISTRIBUTION WIDTH 16.7 % (11.5-14.5)
[2020-10-27 05:56] LABS: ANION GAP 4 mmol/L (8-16); CALCIUM, TOTAL 9.5 mg/dL (8.8-10.5); CARBON DIOXIDE 37 mmol/L (22-29); CHLORIDE 102 mmol/L (98-107); CREATININE 1.09 mg/dL (0.60-1.30); GLOMERULAR FILTR. RATE CALC > 60 mL/min (>60); GLUCOSE,RANDOM 114 mg/dL (70-110); POTASSIUM 3.8 mmol/L (3.5-5.1); SODIUM SERUM 143 mmol/L (136-145); UREA NITROGEN, BLOOD 30 mg/dL (7-18)
[2020-10-27 07:08] LABS: BAND NEUTROPHILS % (MANUAL) 12 % (0-5); LYMPHOCYTES % (MANUAL) 13 % (22-44); MONOCYTES % (MANUAL) 8 % (2-9); SEGMENTED NEUTROPHILS % 67 % (40-70)
[2020-10-27 08:00] VITALS: BP 134/64
[2020-10-27] MEDS: AMINO ACIDS/PROTEIN HYDROLYS 30 ML TUBE PO SCH ×2 (08:58→12:50)
[2020-10-27] MEDS: OxyCODONE HCL 5 MG IR TABLET PO SCH ×4 (08:58→20:03)
[2020-10-27] MEDS: FAMOTIDINE 20 MG TABLET PO SCH ×2 (08:58→20:04)
[2020-10-27] MEDS: LACTULOSE 20 GM/30 ML SOLUTION UDCUP PO SCH ×2 (08:59→20:02)
[2020-10-27] MEDS: DOCUSATE SODIUM 100 MG CAPSULE PO SCH ×2 (08:59→20:04)
[2020-10-27] MEDS: ZINC SULFATE 220 MG CAPSULE PO SCH ×2 (08:59→20:02)
[2020-10-27] MEDS: DEXAMETHASONE SOD PHOS 4 MG/ML VIAL IVP SCH (08:59)
[2020-10-27] MEDS: DIAZEPAM 5 MG TABLET PO SCH ×3 (08:59→20:04)
[2020-10-27] MEDS: CHOLECALCIFEROL (VIT D3) 1,000 UNITS [25 MCG] TABLET PO SCH (08:59)
[2020-10-27] MEDS: ASCORBIC ACID 500 MG TABLET PO SCH ×2 (08:59→20:02)
[2020-10-27] MEDS: METOCLOPRAMIDE HCL 5 MG/ML 2 ML VIAL IVP SCH ×3 (09:00→20:13)
[2020-10-27] MEDS: MICONAZOLE NITRATE 2% 142 GM CREAM [BAZA] TP SCH ×2 (09:00→20:13)
[2020-10-27] MEDS: CISATRACURIUM BESYLATE 100 MG in DEXTROSE 5%-WATER 240 ML IV PRN ×2 (09:01→20:10)
[2020-10-27] MEDS: MIDAZOLAM HCL 100 MG in DEXTROSE 5%-WATER 180 ML IV PRN (09:01)
[2020-10-27 11:13] LABS: ABG A-A DIFF O2 378.2 mmHg (10-20.0); ABG BASE EXCESS 14.8 mmol/L (-2.0-3.0); ABG CARBOXYHEMOGLOBIN 1.4 % (0.0-1.5); ABG HCO3 35.8 mmol/L (22.0-26.0); ABG METHEMOGLOBIN 0.3 % (0.0-1.5); ABG OXYGEN CONTENT 13.1 mL/dL (15.0-23.0); ABG OXYHEMOGLOBIN 81.2 % (94.0-100.0); ABG PH 7.392 (7.35-7.450); ABG TOTAL HEMOGLOBIN 11.5 G/dL (12.0-18.0); PO2, ARTERIAL BG 49.1 mmHg (84.0-92.0); SOURCE, BLOOD GAS ARTERIAL; TEMPERATURE, FAHRENHEIT, BG 98.6 FAHREN (96.0-98.6)
[2020-10-27 12:00] VITALS: BP 145/73
[2020-10-27] MEDS: MINERAL OIL 133 ML ENEMA PR SCH (12:53)
[2020-10-27 16:00] VITALS: BP 148/67
[2020-10-27 16:18] LABS: ABG OXYGEN SATURATION 82.6 % (95.0-98.0); ABG PCO2 67 mmHg (35-45); O2 DEVICE,BLOOD GAS VENTILATOR (ROOM AIR); SITE, BLOOD GAS ART-LINE
[2020-10-27 16:20] LABS: VENT MODE, BG Press. Control Vent (ROOM AIR)
[2020-10-27 16:29] LABS: PEEP,BG 10 cm H2O
[2020-10-27 20:00] VITALS: BP 129/63
[2020-10-27] MEDS: ATORVASTATIN CALCIUM 20 MG TABLET PO SCH (20:03)
[2020-10-27] MEDS: HEPARIN SODIUM 25000 UNITS/D5W 250 ML IV PRN (22:42)
[2020-10-28] VITALS: BP 135/67
[2020-10-28] MEDS ORDERED: SODIUM CHLORIDE 0.9% 100 ML ONE (04:45)
[2020-10-28] MEDS: ALBUMIN HUMAN 25%-12.5GM/50ML 50 ML IV SCH ×3 (04:49→20:21)
[2020-10-28] MEDS: PROPOFOL 1000 MG/ISO-OSM 100 ML IV PRN ×4 (04:50→20:21)
[2020-10-28] MEDS: MIDAZOLAM HCL 100 MG in DEXTROSE 5%-WATER 180 ML IV PRN (04:51)
[2020-10-28 05:32] VITALS: BP 129/61
[2020-10-28] MEDS: CISATRACURIUM BESYLATE 100 MG in DEXTROSE 5%-WATER 240 ML IV PRN ×2 (05:57→20:23)
[2020-10-28 07:51] LABS: ANION GAP 7 mmol/L (8-16); CALCIUM, TOTAL 9.6 mg/dL (8.8-10.5); CARBON DIOXIDE 37 mmol/L (22-29); CHLORIDE 101 mmol/L (98-107); CREATININE 1.24 mg/dL (0.60-1.30); GLOMERULAR FILTR. RATE CALC > 60 mL/min (>60); GLUCOSE,RANDOM 106 mg/dL (70-110); POTASSIUM 3.8 mmol/L (3.5-5.1); SODIUM SERUM 145 mmol/L (136-145); UREA NITROGEN, BLOOD 32 mg/dL (7-18)
[2020-10-28 08:00] VITALS: BP 114/55
[2020-10-28] MEDS: ZINC SULFATE 220 MG CAPSULE PO SCH ×2 (08:43→20:24)
[2020-10-28] MEDS: MAGNESIUM HYDROXIDE SUSPENSION 30 ML UDCUP PO PRN (08:43)
[2020-10-28] MEDS: FAMOTIDINE 20 MG TABLET PO SCH ×2 (08:43→20:24)
[2020-10-28] MEDS: ASCORBIC ACID 500 MG TABLET PO SCH ×2 (08:43→20:24)
[2020-10-28] MEDS: LACTULOSE 20 GM/30 ML SOLUTION UDCUP PO SCH ×2 (08:43→20:23)
[2020-10-28] MEDS: CHOLECALCIFEROL (VIT D3) 1,000 UNITS [25 MCG] TABLET PO SCH (08:43)
[2020-10-28] MEDS: METOCLOPRAMIDE HCL 5 MG/ML 2 ML VIAL IVP SCH ×3 (08:44→20:23)
[2020-10-28] MEDS: DOCUSATE SODIUM 100 MG CAPSULE PO SCH ×2 (08:44→20:24)
[2020-10-28] MEDS: DEXAMETHASONE SOD PHOS 4 MG/ML VIAL IVP SCH (08:44)
[2020-10-28] MEDS: AMINO ACIDS/PROTEIN HYDROLYS 30 ML TUBE PO SCH ×2 (08:47→12:33)
[2020-10-28] MEDS: MICONAZOLE NITRATE 2% 142 GM CREAM [BAZA] TP SCH ×2 (08:51→20:25)
[2020-10-28] MEDS: OxyCODONE HCL 5 MG IR TABLET PO SCH ×4 (08:52→20:24)
[2020-10-28] MEDS: DIAZEPAM 5 MG TABLET PO SCH ×3 (08:52→20:24)
[2020-10-28] MEDS: FentaNYL CIT 1000MCG/D5%-WATER 100 ML IV PRN ×2 (09:11→18:01)
[2020-10-28 12:00] VITALS: BP 120/60
[2020-10-28] MEDS: MINERAL OIL 133 ML ENEMA PR SCH (12:33)
[2020-10-28 16:00] VITALS: BP 126/59
[2020-10-28 20:00] VITALS: BP 130/65
[2020-10-28] MEDS: ATORVASTATIN CALCIUM 20 MG TABLET PO SCH (20:24)
[2020-10-29] VITALS: BP 113/56
[2020-10-29] MEDS ORDERED: SODIUM CHLORIDE 0.9% 500 ML IV ONE (00:14)
[2020-10-29] MEDS: PROPOFOL 1000 MG/ISO-OSM 100 ML IV PRN ×5 (02:06→22:23)
[2020-10-29] MEDS: HEPARIN SODIUM 25000 UNITS/D5W 250 ML IV PRN (02:07)
[2020-10-29 04:00] VITALS: BP 96/48
[2020-10-29] MEDS: FentaNYL CIT 1000MCG/D5%-WATER 100 ML IV PRN ×3 (04:18→22:24)
[2020-10-29] MEDS: ALBUMIN HUMAN 25%-12.5GM/50ML 50 ML IV SCH ×3 (05:58→19:49)
[2020-10-29] MEDS: MIDAZOLAM HCL 100 MG in DEXTROSE 5%-WATER 180 ML IV PRN (06:00)
[2020-10-29 06:08] LABS: HEMATOCRIT 29.8 % (41-53); HEMOGLOBIN 9.9 g/dL (13.5-17.5); MEAN CORPUSCULAR HEMOGLOBIN 29.4 pg (26.0-34.0); MEAN CORPUSCULAR HGB CONC 33.4 G/dL (31.0-37.0); MEAN CORPUSCULAR VOLUME 88 fL (80-100); PLATELET COUNT (AUTO) 269 K/uL (150-450); RED BLOOD CELL COUNT(AUTO) 3.38 MIL/uL (4.50-5.90); RED CELL DISTRIBUTION WIDTH 16.9 % (11.5-14.5)
[2020-10-29 06:20] LABS: ANION GAP 5 mmol/L (8-16); CALCIUM, TOTAL 9.7 mg/dL (8.8-10.5); CARBON DIOXIDE 36 mmol/L (22-29); CHLORIDE 99 mmol/L (98-107); CREATININE 1.16 mg/dL (0.60-1.30); GLOMERULAR FILTR. RATE CALC > 60 mL/min (>60); GLUCOSE,RANDOM 93 mg/dL (70-110); POTASSIUM 3.7 mmol/L (3.5-5.1); SODIUM SERUM 140 mmol/L (136-145); UREA NITROGEN, BLOOD 33 mg/dL (7-18)
[2020-10-29 06:55] LABS: BAND NEUTROPHILS % (MANUAL) 13 % (0-5); LYMPHOCYTES % (MANUAL) 9 % (22-44); MONOCYTES % (MANUAL) 8 % (2-9); SEGMENTED NEUTROPHILS % 70 % (40-70)
[2020-10-29 08:00] VITALS: BP 129/57
[2020-10-29] MEDS: LACTULOSE 20 GM/30 ML SOLUTION UDCUP PO SCH ×2 (08:48→19:49)
[2020-10-29] MEDS: DEXAMETHASONE SOD PHOS 4 MG/ML VIAL IVP SCH (08:48)
[2020-10-29] MEDS: OxyCODONE HCL 5 MG IR TABLET PO SCH ×4 (08:48→19:53)
[2020-10-29] MEDS: ASCORBIC ACID 500 MG TABLET PO SCH ×2 (08:49→19:54)
[2020-10-29] MEDS: ZINC SULFATE 220 MG CAPSULE PO SCH ×2 (08:49→19:53)
[2020-10-29] MEDS: FAMOTIDINE 20 MG TABLET PO SCH ×2 (08:49→19:50)
[2020-10-29] MEDS: AMINO ACIDS/PROTEIN HYDROLYS 30 ML TUBE PO SCH ×2 (08:49→12:10)
[2020-10-29] MEDS: METOCLOPRAMIDE HCL 5 MG/ML 2 ML VIAL IVP SCH ×3 (08:49→19:50)
[2020-10-29] MEDS: CHOLECALCIFEROL (VIT D3) 1,000 UNITS [25 MCG] TABLET PO SCH (08:49)
[2020-10-29] MEDS: DIAZEPAM 5 MG TABLET PO SCH ×3 (08:49→19:50)
[2020-10-29] MEDS: DOCUSATE SODIUM 100 MG CAPSULE PO SCH ×2 (08:50→19:53)
[2020-10-29] MEDS: MICONAZOLE NITRATE 2% 142 GM CREAM [BAZA] TP SCH ×2 (08:50→19:55)
[2020-10-29 12:00] VITALS: BP 110/53
[2020-10-29] MEDS: MINERAL OIL 133 ML ENEMA PR SCH (12:10)
[2020-10-29] MEDS: CISATRACURIUM BESYLATE 100 MG in DEXTROSE 5%-WATER 240 ML IV PRN ×2 (12:16→18:36)
[2020-10-29 13:13] LABS: C-REACTIVE PROTEIN QUANT 1.43 mg/dL (0.00-0.30)
[2020-10-29] MEDS ORDERED: SODIUM CHLORIDE 0.9% 250 ML IV ONE (14:41)
[2020-10-29 16:00] VITALS: BP 116/53
[2020-10-29] MEDS: ATORVASTATIN CALCIUM 20 MG TABLET PO SCH (19:54)
[2020-10-29 20:00] VITALS: BP 149/66
[2020-10-29 22:25] LABS: APPEARANCE,URINE CLOUDY (CLEAR); BILIRUBIN,URINE NEGATIVE (NEGATIVE); GLUCOSE, URINE (UA) NEGATIVE (NEGATIVE); KETONES,URINE NEGATIVE (NEGATIVE); LEUKOCYTE ESTERASE ,URINE SMALL (NEGATIVE); NITRATE,URINE NEGATIVE (NEGATIVE); OCCULT BLOOD,URINE NEGATIVE (NEGATIVE); PH,URINE 7.5 (5.0-8.0); PROTEIN,URINE POS 1+ (NEGATIVE)
[2020-10-29 22:42] LABS: BACTERIA,URINE Rare /HPF (None Seen); RBC,URINE None Seen /HPF (0-2); SQUAMOUS EPITHELIAL CELL,UR Few /LPF (None Seen)
[2020-10-29 22:43] LABS: CALCIUM OXALATE CRYSTALS,UR Many /LPF (None Seen)
[2020-10-30] VITALS: BP 159/78
[2020-10-30] MEDS: CISATRACURIUM BESYLATE 100 MG in DEXTROSE 5%-WATER 240 ML IV PRN ×3 (02:10→21:00)
[2020-10-30 04:00] VITALS: BP 170/83
[2020-10-30] MEDS: PROPOFOL 1000 MG/ISO-OSM 100 ML IV PRN ×5 (05:03→22:09)
[2020-10-30] MEDS: FentaNYL CIT 1000MCG/D5%-WATER 100 ML IV PRN ×3 (05:04→20:25)
[2020-10-30] MEDS: ALBUMIN HUMAN 25%-12.5GM/50ML 50 ML IV SCH ×3 (05:07→21:01)
[2020-10-30 06:33] LABS: HEMATOCRIT 31.6 % (41-53); HEMOGLOBIN 10.6 g/dL (13.5-17.5); MEAN CORPUSCULAR HEMOGLOBIN 29.5 pg (26.0-34.0); MEAN CORPUSCULAR HGB CONC 33.4 G/dL (31.0-37.0); MEAN CORPUSCULAR VOLUME 88 fL (80-100); PLATELET COUNT (AUTO) 282 K/uL (150-450); RED BLOOD CELL COUNT(AUTO) 3.58 MIL/uL (4.50-5.90); RED CELL DISTRIBUTION WIDTH 16.7 % (11.5-14.5)
[2020-10-30] MEDS: MIDAZOLAM HCL 100 MG in DEXTROSE 5%-WATER 180 ML IV PRN (06:38)
[2020-10-30] MEDS: HEPARIN SODIUM 25000 UNITS/D5W 250 ML IV PRN (06:39)
[2020-10-30 06:57] LABS: ALANINE AMINOTRANSFERASE 42 U/L (12-78); ALBUMIN 3.8 g/dL (3.4-5.0); ALKALINE PHOSPHATASE 55 U/L (46-116); ANION GAP 8 mmol/L (8-16); ASPARTATE AMINOTRANSFERASE 29 U/L (15-37); BILIRUBIN,TOTAL 0.9 mg/dL (0.1-1.0); CALCIUM, TOTAL 9.4 mg/dL (8.8-10.5); CARBON DIOXIDE 33 mmol/L (22-29); CHLORIDE 99 mmol/L (98-107); CREATININE 1.16 mg/dL (0.60-1.30); GLOMERULAR FILTR. RATE CALC > 60 mL/min (>60); GLUCOSE,RANDOM 94 mg/dL (70-110); POTASSIUM 3.4 mmol/L (3.5-5.1); SODIUM SERUM 140 mmol/L (136-145); TOTAL PROTEIN, SERUM 6.3 g/dL (6.4-8.2); UREA NITROGEN, BLOOD 32 mg/dL (7-18)
[2020-10-30 08:00] VITALS: BP 149/73
[2020-10-30] MEDS: FAMOTIDINE 20 MG TABLET PO SCH ×2 (08:44→21:01)
[2020-10-30] MEDS: ASCORBIC ACID 500 MG TABLET PO SCH ×2 (08:44→21:01)
[2020-10-30] MEDS: ZINC SULFATE 220 MG CAPSULE PO SCH ×2 (08:44→21:02)
[2020-10-30] MEDS: DIAZEPAM 5 MG TABLET PO SCH ×3 (08:44→21:02)
[2020-10-30] MEDS: DOCUSATE SODIUM 100 MG CAPSULE PO SCH ×2 (08:44→21:02)
[2020-10-30] MEDS: CHOLECALCIFEROL (VIT D3) 1,000 UNITS [25 MCG] TABLET PO SCH (08:45)
[2020-10-30] MEDS: METOCLOPRAMIDE HCL 5 MG/ML 2 ML VIAL IVP SCH ×3 (08:45→21:02)
[2020-10-30] MEDS: DEXAMETHASONE SOD PHOS 4 MG/ML VIAL IVP SCH (08:46)
[2020-10-30] MEDS: LACTULOSE 20 GM/30 ML SOLUTION UDCUP PO SCH ×2 (08:46→21:01)
[2020-10-30] MEDS: AMINO ACIDS/PROTEIN HYDROLYS 30 ML TUBE PO SCH ×2 (08:48→12:58)
[2020-10-30] MEDS: OxyCODONE HCL 5 MG IR TABLET PO SCH ×4 (09:00→21:02)
[2020-10-30 09:36] LABS: BAND NEUTROPHILS % (MANUAL) 9 % (0-5); LYMPHOCYTES % (MANUAL) 12 % (22-44); MONOCYTES % (MANUAL) 6 % (2-9); SEGMENTED NEUTROPHILS % 73 % (40-70)
[2020-10-30] MEDS: MICONAZOLE NITRATE 2% 142 GM CREAM [BAZA] TP SCH ×2 (10:34→21:02)
[2020-10-30 12:00] VITALS: BP 135/86
[2020-10-30] MEDS: POTASSIUM CHL 10 MEQ/WATER 50 ML IV PRN ×3 (14:15→15:47)
[2020-10-30 16:00] VITALS: BP 135/65
[2020-10-30] MEDS: MINERAL OIL 133 ML ENEMA PR SCH (17:43)
[2020-10-30 20:00] VITALS: BP 152/69
[2020-10-30] MEDS: ATORVASTATIN CALCIUM 20 MG TABLET PO SCH (21:01)
[2020-10-31] VITALS: BP 146/64
[2020-10-31] MEDS: PROPOFOL 1000 MG/ISO-OSM 100 ML IV PRN ×4 (02:35→14:56)
[2020-10-31] MEDS: FentaNYL CIT 1000MCG/D5%-WATER 100 ML IV PRN ×2 (03:38→09:51)
[2020-10-31] MEDS: HydrALAZINE HCL 20 MG/ML VIAL IVP PRN (03:39)
[2020-10-31 04:16] VITALS: BP 144/63
[2020-10-31] MEDS: ALBUMIN HUMAN 25%-12.5GM/50ML 50 ML IV SCH ×2 (04:38→13:00)
[2020-10-31 06:12] LABS: BASOPHILS % (AUTO) 0.8 % (0.0-2.0); EOSINOPHILS % (AUTO) 0.1 % (1.0-6.0); HEMATOCRIT 35.2 % (41-53); HEMOGLOBIN 11.6 g/dL (13.5-17.5); LYMPHOCYTES # (AUTO) 0.4 K/uL (1.0-4.8); LYMPHOCYTES % (AUTO) 3.1 % (22.0-44.0); MEAN CORPUSCULAR HEMOGLOBIN 29.6 pg (26.0-34.0); MEAN CORPUSCULAR HGB CONC 33.1 G/dL (31.0-37.0); MEAN CORPUSCULAR VOLUME 89 fL (80-100); MONOCYTES # (AUTO) 0.1 K/uL (0.1-1.0); MONOCYTES % (AUTO) 0.9 % (2.0-9.0); NEUTROPHILS # (AUTO) 11.6 K/uL (1.8-7.7); PLATELET COUNT (AUTO) 243 K/uL (150-450); RED BLOOD CELL COUNT(AUTO) 3.94 MIL/uL (4.50-5.90); RED CELL DISTRIBUTION WIDTH 17.3 % (11.5-14.5)
[2020-10-31] MEDS: MIDAZOLAM HCL 100 MG in DEXTROSE 5%-WATER 180 ML IV PRN (06:22)
[2020-10-31 06:55] LABS: ALANINE AMINOTRANSFERASE 39 U/L (12-78); ALBUMIN 4.2 g/dL (3.4-5.0); ALKALINE PHOSPHATASE 66 U/L (46-116); ANION GAP 9 mmol/L (8-16); ASPARTATE AMINOTRANSFERASE 27 U/L (15-37); BILIRUBIN,TOTAL 1.2 mg/dL (0.1-1.0); CALCIUM, TOTAL 9.8 mg/dL (8.8-10.5); CARBON DIOXIDE 32 mmol/L (22-29); CHLORIDE 100 mmol/L (98-107); CREATININE 1.05 mg/dL (0.60-1.30); GLOMERULAR FILTR. RATE CALC > 60 mL/min (>60); GLUCOSE,RANDOM 74 mg/dL (70-110); POTASSIUM 3.6 mmol/L (3.5-5.1); SODIUM SERUM 141 mmol/L (136-145); TOTAL PROTEIN, SERUM 7.2 g/dL (6.4-8.2); UREA NITROGEN, BLOOD 26 mg/dL (7-18)
[2020-10-31] MEDS: NOREPINEPHRINE 4 MG/D5%-WATER 250 ML IV PRN ×2 (07:21→09:50)
[2020-10-31 08:00] VITALS: BP 93/48
[2020-10-31] MEDS ORDERED: PHENYLEPHRINE 200 MG/D5%-WATER 250 ML IV PRN (08:00)
[2020-10-31] MEDS: AMINO ACIDS/PROTEIN HYDROLYS 30 ML TUBE PO SCH ×2 (08:00→12:00)
[2020-10-31] MEDS ORDERED: VASOPRESSIN 40 UNITS in DEXTROSE 5%-WATER 98 ML IV PRN (08:00)
[2020-10-31 08:14] LABS: NEUTROPHILS % (AUTO) 95.1 % (40.0-70.0)
[2020-10-31] MEDS: FAMOTIDINE 20 MG TABLET PO SCH (08:35)
[2020-10-31] MEDS: ASCORBIC ACID 500 MG TABLET PO SCH (08:35)
[2020-10-31] MEDS: DIAZEPAM 5 MG TABLET PO SCH ×2 (08:35→16:00)
[2020-10-31] MEDS: DOCUSATE SODIUM 100 MG CAPSULE PO SCH (08:35)
[2020-10-31] MEDS: LACTULOSE 20 GM/30 ML SOLUTION UDCUP PO SCH (08:36)
[2020-10-31] MEDS: CHOLECALCIFEROL (VIT D3) 1,000 UNITS [25 MCG] TABLET PO SCH (08:36)
[2020-10-31] MEDS: METOCLOPRAMIDE HCL 5 MG/ML 2 ML VIAL IVP SCH ×2 (08:36→16:00)
[2020-10-31] MEDS: DEXAMETHASONE SOD PHOS 4 MG/ML VIAL IVP SCH (08:37)
[2020-10-31] MEDS: ZINC SULFATE 220 MG CAPSULE PO SCH (08:38)
[2020-10-31] MEDS: MICONAZOLE NITRATE 2% 142 GM CREAM [BAZA] TP SCH (08:41)
[2020-10-31] MEDS: OxyCODONE HCL 5 MG IR TABLET PO SCH ×3 (08:42→16:00)
[2020-10-31] MEDS: CISATRACURIUM BESYLATE 100 MG in DEXTROSE 5%-WATER 240 ML IV PRN (10:16)
[2020-10-31 12:00] VITALS: BP 51/35
[2020-10-31] MEDS ORDERED: *CLINICAL-MEROPENEM DOSING CLINICAL ONE (12:00)
[2020-10-31] MEDS ORDERED: MEROPENEM 1 GM in SODIUM CHLORIDE 0.9% 100 ML IV SCH (13:00)
[2020-10-31 16:00] VITALS: BP 20/17
[2020-10-31] MEDS: MINERAL OIL 133 ML ENEMA PR SCH (17:00)
== END 2020-10-31 18:15 | DRG 870 ==
LOC: EMS 22:45 → 5N 09-23 01:17 → ICU 09-25 04:53
PROVIDERS: ADMIT Internal Medicine; ATTEND Internal Medicine
PROC: XW033E5 Introduction of Remdesivir Anti-infective into Peripheral Vein, Percutaneous Approach, New Technology Group 5 (ICD-10-PCS; 2020-09-24)
PROC: 02H633Z Insertion of Infusion Device into Right Atrium, Percutaneous Approach (ICD-10-PCS; principal; 2020-09-25)
PROC: 5A1955Z Respiratory Ventilation, Greater than 96 Consecutive Hours (ICD-10-PCS; 2020-09-25)
PROC: XW13325 Transfusion of Convalescent Plasma (Nonautologous) into Peripheral Vein, Percutaneous Approach, New Technology Group 5 (ICD-10-PCS; 2020-09-25)
PROC: 0BH17EZ Insertion of Endotracheal Airway into Trachea, Via Natural or Artificial Opening (ICD-10-PCS; 2020-09-25)
PROC: 05HY33Z Insertion of Infusion Device into Upper Vein, Percutaneous Approach (ICD-10-PCS; 2020-10-13)
PROC: B54MZZA Ultrasonography of Right Upper Extremity Veins, Guidance (ICD-10-PCS; 2020-10-13)
DX: A41.89 Other specified sepsis (principal); U07.1 COVID-19; J96.01 Acute respiratory failure with hypoxia; I21.4 Non-ST elevation (NSTEMI) myocardial infarction; J12.82 Pneumonia due to coronavirus disease 2019; E43 Unspecified severe protein-calorie malnutrition; N17.9 Acute kidney failure, unspecified; D68.59 Other primary thrombophilia; N39.0 Urinary tract infection, site not specified; E87.0 Hyperosmolality and hypernatremia; E66.9 Obesity, unspecified; Z68.36 Body mass index [BMI] 36.0-36.9, adult; Z86.73 Personal history of transient ischemic attack (TIA), and cerebral infarction without residual deficits; F17.210 Nicotine dependence, cigarettes, uncomplicated; Z82.49 Family history of ischemic heart disease and other diseases of the circulatory system; F15.10 Other stimulant abuse, uncomplicated; Z66 Do not resuscitate; I46.9 Cardiac arrest, cause unspecified; B95.7 Other staphylococcus as the cause of diseases classified elsewhere; E87.6 Hypokalemia; B96.89 Other specified bacterial agents as the cause of diseases classified elsewhere; K59.00 Constipation, unspecified; R79.82 Elevated C-reactive protein (CRP)
CPT/HCPCS: 36569; 36600; 71045; 80048; 80053; 80076; 81001; 81002; 82550; 82728; 82805; 82962; 83605; 83615; 83880; 84132; 84145; 84484; 85025; 85379; 85610; 85730; 86140; 86900; 86901; 86927; 87040; 87070; 87077; 87081; 87086; 87186; 87205; 87449; 87804; 87899; 93005; 93306; 93970; 94002; 94003; 94640; 99291; G0238; G0378; J0360; J0456; J0692; J0696; J0878; J1100; J1265; J1450; J1644; J1956; J2060; J2185; J2250; J2370; J2704; J2765; J3010; J3480; J3490; J7030; J7040; J7050; J7060; P9047; Q9967; 36415-L1; 36415-TC; J7613; U0003